=== PATIENT | female | born 1960 | race Caucasian/White ===

== ENCOUNTER 2018-09-27 19:17 | Emergency (ER) | payer SELFPAY ==
[~2018-09-27] VITALS: Ht 165.1 cm; Wt 90.7 kg
[~2018-09-27 19:17] MED LIST: ABILIFY; ADV1DS; ALBU17AE23 IH; AZTH250C; CRS350T PO; ESTR1TAB66; FLT05NA16; FLT05NA16 NSEACH; GFN600TCR; IPRA3AMP19; MNTL10T PO; NAPR-243 PO; OMEP-10; PREMARIN PO; REQUIP; RNT150T; TRM50T PO; VYBRID
--- OUTSIDE RECORDS SUMMARY | 2018-09-27 19:23 | XMS REPORT ---
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 Status Albuterol Sulfate 2.5 mg /3 mL (0.083 %) inhale 3 milliliters by Inhalation route every 4 hours for cough and wheezePRNfor wheezing or cough Sep, Active Ipratropium-Albuterol 0.5-2.5 (3) MG/3ML Inhalation every 6 hrs 3 ml 6h 17 Jan, 2018 10 days Active ZyrTEC 10 MG Orally Once a day 1 tablet as needed 24h Active Prilosec OTC 20 MG Orally Once a day 1 tablet 24h Active Ventolin HFA 108 (90 Base) MCG/ACT Inhalation every 4 hrs 2 puffs as needed 4h Jun, Active Clobetasol Propionate 0.05 % Externally Twice a day 1 application to affected area 12h Jun, Active Ropinirole HCl 1 MG TAKE ONE TABLET BY MOUTH ONE TO THREE HOURS BEFORE BEDTIME. MAY TAKE TAKE ONE-HALF TABLET BY MOUTH DURING THE DAY NEEDED 45 Active Flonase 50 MCG/DOSE Nasally Once a day 1 spray in each nostril 24h Active Zofran 8 MG Orally TID PRN nausea and vomiting 1 tablet Jun, Active Fluconazole 150 MG Orally once 1 tablet Jan, 1 dose Active Diflucan 150 MG Orally now and may repeat in 3 days 1 tablet Jun, 1 dose Active Dicyclomine HCl 20 MG Orally Four times a day as needed for stomach cramps 1 capsules Jun, Active Augmentin 500-125 MG Orally 2 times a day 1 tablet 12h Jun, 10 days Not-Taking Concerta 36 MG Orally Once a day 1 tablet in the morning 24h Jun, 28 days Active RESULTS No Results PROCEDURES No Known procedures INSTRUCTIONS MEDICATIONS ADMINISTERED No Known Medications MEDICAL (GENERAL) HISTORY Type Description Date Medical History back pain Medical History asthma Medical History attention deficit disorder Medical History rosacea Medical History hearing loss Medical History shingles Medical History depression Medical History anxiety Medical History insomnia Medical History restless leg syndrome Medical History hypertension Medical History cervical dysplasia 12/2006 [place] [facility] Medical History MRSA of skin 2008 Surgical History hysterectomy, total with bilateral salpingo-oophorectomy (BSO ) 10/2007 Surgical History Left ankle fracture 04/2014 Hospitalization History bronchitis
--- OUTSIDE RECORDS SUMMARY | 2018-09-27 19:23 | XMS REPORT ---
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 2010 IMMUNIZATIONS No Known Immunizations SOCIAL HISTORY Never Assessed REASON FOR VISIT Controlled Med Vjwtnf31/17/18 PLAN OF CARE VITAL SIGNS MEDICATIONS Medication Instructions Dosage Frequency Start Date End Date Duration Status Concerta 36 MG Orally Once a day 1 tablet in the morning 24h Jul, 28 days Active RESULTS No Results PROCEDURES [...] History hypertension Medical History cervical dysplasia 12/2006 [place] [facility] History MRSA of skin 2008 Surgical History hysterectomy, total with bilateral salpingo-oophorectomy (BSO ) 10/2007 Surgical History Left ankle fracture 04/2014 Hospitalization History bronchitis
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
--- OUTSIDE RECORDS SUMMARY | 2018-09-27 19:24 | XMS REPORT ---
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 Flonase 50 MCG/DOSE Nasally Once a day 1 spray in each nostril 24h Active ZyrTEC 10 MG Orally Once a day 1 tablet as needed 24h Active Augmentin 500-125 MG Orally 2 times a day 1 tablet 12h Jun, 10 days Active Fluconazole 150 MG Orally once 1 tablet Jan, 1 dose Active Albuterol Sulfate 2.5 mg /3 mL (0.083 %) inhale 3 milliliters by Inhalation route every 4 hours for cough and wheezePRNfor wheezing or cough Sep, Active Prilosec OTC 20 MG Orally Once a day 1 tablet 24h Active Ropinirole HCl 1 MG Orally Once a day. May take an additional 0.5 tablet during the day as needed 1 tablet 1 to 3 hours before bedtime Mar, 30 days Active Diflucan 150 MG Orally now and may repeat in 3 days 1 tablet Jun, 1 dose Active Concerta 36 MG Orally Once a day 1 tablet in the morning 24h Jun, 28 days Active Clobetasol Propionate 0.05 % Externally Twice a day 1 application to affected area 12h Jun, Active Ipratropium-Albuterol 0.5-2.5 (3) MG/3ML Inhalation every 6 hrs 3 ml 6h Jan, 10 days Active RESULTS No Results PROCEDURES [...] History hypertension Medical History cervical dysplasia 12/2006 [place] [facility] History MRSA of skin 2008 Surgical History hysterectomy, total with bilateral salpingo-oophorectomy (BSO ) 10/2007 Surgical History Left ankle fracture 04/2014 Hospitalization History bronchitis
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
--- OUTSIDE RECORDS SUMMARY | 2018-09-27 19:25 | XMS REPORT ---
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 Sulfate 2.5 mg /3 mL (0.083 %) inhale 3 milliliters by Inhalation route every 4 hours for cough and wheezePRNfor wheezing or cough Sep, Active Concerta 27 MG Orally Once a day 1 tablet in the morning 24h December, 28 days Active Augmentin 875-125 MG Orally every 12 hrs 1 tablet 12h Jan,Jan 10 day(s) Active RESULTS No Results PROCEDURES No Known [...] History hypertension Medical History cervical dysplasia 12/2006 [place] [facility] Medical History MRSA of skin 2008 Surgical History hysterectomy, total with bilateral salpingo-oophorectomy (BSO ) 10/2007 Surgical History Left ankle fracture 04/2014 Hospitalization History bronchitis
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
--- OUTSIDE RECORDS SUMMARY | 2018-09-27 19:27 | XMS REPORT ---
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 fracture 04/2014 Hospitalization History bronchitis
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
--- OUTSIDE RECORDS SUMMARY | 2018-09-27 19:29 | XMS REPORT ---
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 MG Orally Once a day 1 tablet as needed 24h Not-Taking Symbicort 160-4.5 mcg/actuation inhale 2 puffs by inhalation route 2 times per day in the morning and evening Apr, Not-Taking Prilosec OTC 20 MG Orally Once a day 1 tablet 24h Active Prazosin HCl 2 MG Orally Once at bedtime 2 capsule 16 Feb, 2015 Not-Taking RESULTS No Results PROCEDURES No Known procedures INSTRUCTIONS MEDICATIONS ADMINISTERED No Known Medications MEDICAL (GENERAL) HISTORY Type Description Date Medical History back pain Medical History asthma Medical History attention deficit disorder Medical History rosacea Medical History hearing loss Medical History shingles Medical History depression Medical History anxiety Medical History insomnia Medical History restless leg syndrome Medical History hypertension Medical History cervical dysplasia 12/2006 [facility] [place] [facility] Medical History MRSA of skin 2008 Surgical History hysterectomy, total with bilateral salpingo-oophorectomy (BSO ) 10/2007 Surgical History Left ankle fracture 04/2014 Hospitalization History bronchitis
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
--- OUTSIDE RECORDS SUMMARY | 2018-09-27 19:29 | XMS REPORT ---
Author Author MONICA MOSS eClinical[employer] Address Unknown Phone Unavailable Care Team Providers Care Top Dyeing Machine Tender Name Role Phone MONICA MOSS CP Unavailable Allergies No Known Allergies Problems Problem Type Condition Code Onset Dates Condition Status Problem Asthma, unspecified, unspecified status 493.90 Active Problem Major depressive disorder, recurrent episode, moderate 296.32 Active Problem Unspecified closed fracture of ankle 824.8 Active Problem Pain in joint, ankle and foot 719.47 Active Problem Unspecified disorder of skin and subcutaneous tissue 709.9 Active Problem Dysthymic disorder 300.4 Active Problem Attention deficit disorder of childhood 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 314.00 Active Problem Contact dermatitis and other eczema due to solvents 692.2 Active Problem Acute sinusitis, unspecified 461.9 Active Problem Family history of malignant neoplasm of gastrointestinal tract V16.0 Active Problem Major depressive disorder, recurrent episode, unspecified 296.30 Active Problem Special screening for malignant neoplasms, vagina V76.47 Active Problem Pain in joint, forearm 719.43 Active Problem Postmenopausal bleeding 627.1 Active Problem Rosacea 695.3 Active Problem Dysfunction of Eustachian tube 381.81 Active Problem Posttraumatic stress disorder 309.81 Active Problem Anxiety state 300.00 Active Problem Herpes simplex without mention of complication 054.9 Active Problem Encounter for long-term (current) use of other medications V58.69 Active Problem Manic disorder, recurrent episode, moderate 296.12 Active Problem Hormone replacement therapy (postmenopausal) V07.4 Active Problem Screening for malignant neoplasm of the cervix V76.2 Active Problem Other screening breast examination V76.19 Active Problem Depressive disorder, not elsewhere classified 311 Active Problem Dissociative disorder or reaction, 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 Active Problem Other closed fractures of distal end of radius (alone) 813.42 Active Problem Wheezing 786.07 Active Problem Need for prophylactic vaccination and inoculation, Influenza V04.81 Active Problem Cough 786.2 Active Problem Herpes zoster without mention of complication 053.9 Active Problem Diarrhea 787.91 Active Problem Unspecified hearing loss 389.9 Active Problem Acute upper respiratory infections of unspecified site 465.9 Active Problem Lateral epicondylitis of elbow 726.32 Active Problem Special screening for malignant neoplasms, colon V76.51 Active Problem Acute bronchitis 466.0 Active Problem Acute maxillary sinusitis 461.0 Active Medications No Known Medications Results No Known Results Summary Purpose eClinicalWorks Submission
--- OUTSIDE RECORDS SUMMARY | 2018-09-27 19:30 | XMS REPORT ---
Author Author MONICA MOSS [employer] Address Unknown Phone Unavailable Care Team Providers Care Business Consult Name Role Phone MONICA MOSS CP Unavailable Allergies, Adverse Reactions, Alerts Substance Reaction Event Type Sulfamethoxazole-Trimethoprim rash Drug Allergy Mirapex unknown Drug Allergy Latex rash Non Drug Allergy MSG rash, blisters on feet Non Drug Allergy Problems Problem Type Condition Code Onset Dates [...] respiratory infections of unspecified site 465.9 Active Assessment PTSD (post-traumatic stress disorder) F43.10 Active Problem Lateral epicondylitis of elbow 726.32 Active Assessment Moderate mixed bipolar I disorder F31.62 Active Problem Special screening for malignant neoplasms, colon V76.51 Active Problem Acute bronchitis 466.0 Active Problem Acute maxillary sinusitis 461.0 Active Medications Medication Code System Code Instructions Start Date End Date Status Dosage Albuterol Sulfate [facility] [address]-51 2.5 mg /3 mL (0.083 %) Oct 04, 2011 inhale 3 milliliters by Inhalation route every 4 hours for cough and wheeze PRNfor wheezing or cough Prilosec OTC [facility] [address] 20 MG Orally Once a day 1 tablet Prazosin HCl [facility] [address]-06 2 MG Orally Once at bedtime March 09, 2015 2 capsule Sertraline HCl [facility] [address]-55 50 MG Orally Once a day Apr 24, 2015 1 tablet ZyrTEC [facility] [address]-08 10 MG Orally Once a day 1 tablet as needed Symbicort [facility] [address]-21 160-4.5 mcg/actuation May 16, 2014 inhale 2 puffs by inhalation route 2 times per day in the morning and evening Singulair [facility] 61036915571 10 MG TAKE ONE TABLET BY MOUTH ONCE DAILY Loxapine [facility] [address]-11 10 MG 1 tab in the AM & 2 tabs at HS May 11, 2015 1 tablets Alprazolam [facility] [address]-87 0.5 MG Orally Twice a day as needed for anxiety 1 tablet Flonase [facility] [address]-34 50 MCG/DOSE Nasally Once a day 1 spray in each nostril Procedures Procedure Coding System Code Date Office Visit, Est Pt., Level 4 CPT-4 00966 Jun 15, 2015 Vital Signs Date/Time: Jun 15, 2015 Cardiac Monitoring Heart Rate 92 bpm Weight 223.2 lbs Height 65 in BMI 37.14 Index Blood Pressure Diastolic 94 mmHg Blood Pressure Systolic 150 mmHg Results No Known Results Summary Purpose eClinicalWorks Submission
--- OUTSIDE RECORDS SUMMARY | 2018-09-27 19:30 | XMS REPORT ---
Author Author ALLEN MERAZ [facility] eClinicalWorks Address Unknown Phone Unavailable Care Team Providers Care Brick Loader Name Role Phone ALLEN MERAZ CP Unavailable Allergies No Known Allergies Problems [...] Instructions Start Date End Date Status Dosage Diflucan [facility] [address]-31 150 MG Orally Once a day then repeat in 3-4 days 1 tablet Results No Known Results Summary Purpose eClinicalWorks Submission
--- OUTSIDE RECORDS SUMMARY | 2018-09-27 19:30 | XMS REPORT ---
Author Author ALLEN MERAZ [facility] Address [address] [place] [address] Care Team Providers Care Tire Buffer Name Role Phone ALLEN MERAZ Unavailable PROBLEMS Type Condition ICD9-CM Code [id number] Code Onset Dates Condition Status SNOMED Code Problem Unspecified closed fracture of ankle 824.8 Active 80882959 Problem Need for prophylactic vaccination and inoculation, Influenza V04.81 Active 949711083 Problem Diarrhea 787.91 Active 38642133 Problem Other closed fractures of distal end of radius (alone) 813.42 Active 33236251 Problem Cough 786.2 Active 25139295 Problem Wheezing 786.07 Active 59642098 Problem Pain in joint, ankle and foot 719.47 Active 082099598 Problem Pain in joint, forearm 719.43 Active 591835861 Problem Unspecified disorder of skin and subcutaneous tissue 709.9 Active 69490878 Problem Herpes zoster without mention of complication 053.9 Active 785997263 Problem Rosacea 695.3 Active 107366638 Problem Major depressive disorder, recurrent episode, moderate 296.32 Active 23844215 Problem Contact dermatitis and other eczema due to solvents 692.2 Active Problem Major depressive disorder, recurrent episode, unspecified 296.30 Active 39443784 Problem Anxiety state 300.00 Active 035819182 Problem Dysthymic disorder 300.4 Active 17876037 Problem Restless legs G25.81 Active 23344674 Problem 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 Active 649208562 Problem Asthma, unspecified, unspecified status 493.90 Active 13028060 Problem Postmenopausal bleeding 627.1 Active 26221745 Problem Special screening for malignant neoplasms, colon V76.51 Active 907495409 Problem Lateral epicondylitis of elbow 726.32 Active 687923544 Problem Depressive disorder, not elsewhere classified 311 Active 73156856 Problem Dissociative disorder or reaction, 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 Active 28727957 Problem Manic disorder, recurrent episode, moderate 296.12 Active 515746189 Problem Posttraumatic stress disorder 309.81 Active 52256603 Problem Family history of malignant neoplasm of gastrointestinal tract V16.0 Active 135791466 Problem Acute sinusitis, unspecified 461.9 Active 83660603 Problem Hormone replacement therapy (postmenopausal) V07.4 Active 252937296 Problem Acute maxillary sinusitis 461.0 Active 51073266 Problem Other screening breast examination V76.19 Active 13528921 Problem Acute bronchitis 466.0 Active 30239621 Problem Encounter for long-term (current) use of other medications V58.69 Active 434586998 Problem Acute upper respiratory infections of unspecified site 465.9 Active 36628726 Problem Special screening for malignant neoplasms, vagina V76.47 Active 077874684 Problem Attention deficit disorder of childhood 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 314.00 Active 27981178 Problem Screening for malignant neoplasm of the cervix V76.2 Active 077929156 Problem Herpes simplex without mention of complication 054.9 Active 315499728 Problem Unspecified hearing loss 389.9 Active 23167118 Problem Dysfunction of Eustachian tube 381.81 Active 08740184 ALLERGIES Substance Reaction Event Type Date Status Sulfamethoxazole-Trimethoprim rash Drug Allergy December, Active Mirapex unknown Drug Allergy December, Active Latex rash Non Drug Allergy December, Active MSG rash, blisters on feet Non Drug Allergy December, Active SOCIAL HISTORY Never Assessed PLAN OF CARE Activity Details Follow Up 3 Months Reason:restless legs VITAL SIGNS Height 65 in 2016-12-30 Weight 212.2 lbs 2016-12-30 Temperature 98.2 degrees Fahrenheit 2016-12-30 Heart Rate 88 bpm 2016-12-30 Respiratory Rate 22 2016-12-30 BMI 35.31 kg/m2 2016-12-30 Blood pressure systolic 138 mmHg 2016-12-30 Blood pressure diastolic 74 mmHg 2016-12-30 MEDICATIONS Medication Instructions Dosage Frequency Start Date End Date Duration Status Prilosec OTC 20 MG Orally Once a day 1 tablet 24h Active ZyrTEC 10 MG Orally Once a day 1 tablet as needed 24h Active Ventolin HFA 108 (90 Base) MCG/ACT Inhalation every 4 hrs 2 puffs as needed 4h 18 Jun, 2015 Active Sertraline HCl 50 mg Orally Once a day 1.5 tablet 24h Active Albuterol Sulfate 2.5 mg /3 mL (0.083 %) inhale 3 milliliters by Inhalation route every 4 hours for cough and wheezePRNfor wheezing or cough Sep, Active Flonase 50 MCG/DOSE Nasally Once a day 1 spray in each nostril 24h Active Ipratropium Broadalbin 0.02 % Inhalation Three times a day 1 ampule 8h DecemberJan, 30 days Active Mucinex Allergy 180 MG Orally Once a day 1 tablet as needed 24h Active Symbicort 160-4.5 mcg/actuation inhale 2 puffs by inhalation route 2 times per day in the morning and evening Apr, Active Requip 0.5 MG Orally Once a day 1 tablet 1 to 3 hours before bedtime 24h December, 30 day(s) Active Azithromycin 250 MG Orally Once a day 2 tablets on the first day, then 1 tablet daily for 4 days 24h December, December, 5 day(s) Active RESULTS No Results PROCEDURES No Known procedures IMMUNIZATIONS No Known Immunizations MEDICAL (GENERAL) HISTORY Type Description Date Medical History back pain Medical History asthma Medical History attention deficit disorder Medical History rosacea Medical History hearing loss Medical History shingles Medical History depression Medical History anxiety Medical History insomnia Medical History restless leg syndrome Medical History hypertension Medical History cervical dysplasia 12/2006 [place] [facility] Medical History MRSA of skin 2008 Surgical History hysterectomy, total with bilateral salpingo-oophorectomy (BSO ) 10/2007 Surgical History Left ankle fracture 04/2014 Hospitalization History bronchitis
--- OUTSIDE RECORDS SUMMARY | 2018-09-27 19:31 | XMS REPORT ---
Author Author SHANIA VERDIN [facility] Address [address] [place] [address] Care Team Providers Care Grain Farmer Name Role Phone SHANIA VERDIN Unavailable PROBLEMS Type Condition ICD9-CM Code GVC42-TN Code Onset Dates Condition Status SNOMED Code Problem Pain in joint, ankle and foot 719.47 Active 425868850 Problem Asthma, unspecified, unspecified status 493.90 Active 83658358 Problem Unspecified disorder of skin and subcutaneous tissue 709.9 Active 67184554 Problem Unspecified closed fracture of ankle 824.8 Active 10044477 Problem Dysthymic disorder 300.4 Active 86662677 Problem Attention deficit disorder of childhood 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 314.00 Active 65338617 Problem Contact dermatitis and other eczema due to solvents 692.2 Active Problem Acute sinusitis, unspecified 461.9 Active 06333944 Problem Major depressive disorder, recurrent episode, unspecified 296.30 Active 295654626 Problem Special screening for malignant neoplasms, vagina V76.47 Active 173652286 Problem Pain in joint, forearm 719.43 Active 719946889 Problem Postmenopausal bleeding 627.1 Active 13828052 Problem Hormone replacement therapy (postmenopausal) V07.4 Active 175050121 Problem Dysfunction of Eustachian tube 381.81 Active 54990739 Problem Other screening breast examination V76.19 Active 71106453 Problem Rosacea 695.3 Active 347795767 Problem Manic disorder, recurrent episode, moderate 296.12 Active 183723950 Problem Posttraumatic stress disorder 309.81 Active 92261701 Problem Diarrhea 787.91 Active 89141215 Problem Herpes simplex without mention of complication 054.9 Active 848607168 Problem Encounter for long-term (current) use of other medications V58.69 Active 104297863 Problem Dissociative disorder or reaction, 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 Active 61164569 Problem Screening for malignant neoplasm of the cervix V76.2 Active 152338408 Problem Anxiety state 300.00 Active 747122110 Problem Depressive disorder, not elsewhere classified 311 Active 10422697 Problem Need for prophylactic vaccination and inoculation, Influenza V04.81 Active 533752790 Problem Cough 786.2 Active 04699757 Problem Major depressive disorder, recurrent episode, moderate 296.32 Active 32332667 Problem Acute bronchitis 466.0 Active 38959066 Problem Unspecified hearing loss 389.9 Active 76605636 Problem Acute upper respiratory infections of unspecified site 465.9 Active 65311914 Problem Other closed fractures of distal end of radius (alone) 813.42 Active 02987901 Problem Wheezing 786.07 Active 96182849 Assessment Acute bronchitis, unspecified organism J20.9 Jul, Active 45670867 Problem Special screening for malignant neoplasms, colon V76.51 Active 359761631 Problem Herpes zoster without mention of complication 053.9 Active 022514223 Problem Family history of malignant neoplasm of gastrointestinal tract V16.0 Active 070536034 Problem Acute maxillary sinusitis 461.0 Active 45847107 Problem Lateral epicondylitis of elbow 726.32 Active 361721659 ALLERGIES Substance Reaction Event Type Date Status Sulfamethoxazole-Trimethoprim rash Drug Allergy Jul, Active Mirapex unknown Drug Allergy Jul, Active Latex rash Non Drug Allergy Jul, Active MSG rash, blisters on feet Non Drug Allergy Jul, Active SOCIAL HISTORY No smoking Hx information available PLAN OF CARE VITAL SIGNS Height 65 in 2016-08-02 Weight 218.6 lbs 2016-08-02 Heart Rate 80 bpm 2016-08-02 Respiratory Rate 22 2016-08-02 BMI 36.37 kg/m2 2016-08-02 Blood pressure systolic 160 mmHg 2016-08-02 Blood pressure diastolic 94 mmHg 2016-08-02 MEDICATIONS Medication Instructions Dosage Frequency Start Date End Date Duration Status Albuterol Sulfate 2.5 mg /3 mL (0.083 %) inhale 3 milliliters by Inhalation route every 4 hours for cough and wheezePRNfor wheezing or cough Sep, Active Mucinex Allergy 180 MG Orally Once a day 1 tablet as needed 24h Active Prazosin HCl 2 MG Orally Once at bedtime 2 capsule Feb, Active Singulair 10 MG TAKE ONE TABLET BY MOUTH ONCE DAILY 30 Active Flonase 50 MCG/DOSE Nasally Once a day 1 spray in each nostril 24h Active Clobetasol Propionate 0.05 % Externally Twice a day 1 application to affected area as needed for eczema 12h Active Augmentin 875-125 MG Orally every 12 hrs 1 tablet 12h Jul,Jul 10 day(s) Active Ventolin HFA 108 (90 Base) MCG/ACT Inhalation every 4 hrs 2 puffs as needed 4h 18 Jun, 2015 Active BusPIRone HCl 10 MG Orally Twice a day 2 tablets 12h Active ZyrTEC 10 MG Orally Once a day 1 tablet as needed 24h Active Diflucan 150 MG Orally Take one when symptoms start, may repeat in 72 hours if symptoms continue x 2 1 tablet Jul, Jul, 7 days Active Symbicort 160-4.5 mcg/actuation inhale 2 puffs by inhalation route 2 times per day in the morning and evening Apr, Active Sertraline HCl 50 mg Orally Once a day 1.5 tablet 24h Active Prilosec OTC 20 MG Orally Once a day 1 tablet 24h Active PredniSONE 20 MG Orally Once a day 2 tablet 24h Jul, Jul, 5 days Active RESULTS No Results PROCEDURES Procedure Date Ordered Related Diagnosis Body Site Office Visit, Est Pt., Level 3 Aug 02, 2016 IMMUNIZATIONS No Known Immunizations
--- OUTSIDE RECORDS SUMMARY | 2018-09-27 19:31 | XMS REPORT ---
Author Author MARIEL WEST [facility] Address [address] [place] [address] Care Team Providers Care Silk Conditioner Name Role Phone MARIEL WEST Unavailable PROBLEMS Type Condition ICD9-CM Code XSY98-OA Code Onset Dates Condition Status SNOMED Code Problem Unspecified closed fracture of ankle 824.8 Active 82028558 Problem Need for prophylactic vaccination and inoculation, Influenza V04.81 Active 707249027 Problem Diarrhea 787.91 Active 13316857 Problem Other closed fractures of distal end of radius (alone) 813.42 Active 72472461 Problem Cough 786.2 Active 72179690 Problem Wheezing 786.07 Active 57473222 Problem Pain in joint, ankle and foot 719.47 Active 631996919 Problem Pain in joint, forearm 719.43 Active 054905478 Problem Unspecified disorder of skin and subcutaneous tissue 709.9 Active 96073162 Problem Herpes zoster without mention of complication 053.9 Active 248440504 Problem Rosacea 695.3 Active 914525097 Problem Major depressive disorder, recurrent episode, moderate 296.32 Active 14675885 Problem Contact dermatitis and other eczema due to solvents 692.2 Active Problem Major depressive disorder, recurrent episode, unspecified 296.30 Active 79859692 Problem Anxiety state 300.00 Active 954086325 Problem Dysthymic disorder 300.4 Active 09471953 Problem Restless legs G25.81 Active 44850074 Problem 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 Active 867901995 Problem Asthma, unspecified, unspecified status 493.90 Active 92529204 Problem Postmenopausal bleeding 627.1 Active 46723038 Problem Special screening for malignant neoplasms, colon V76.51 Active 354520773 Problem Lateral epicondylitis of elbow 726.32 Active 424816720 Problem Depressive disorder, not elsewhere classified 311 Active 36518240 Problem Dissociative disorder or reaction, 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 Active 51280088 Problem Manic disorder, recurrent episode, moderate 296.12 Active 623046490 Problem Posttraumatic stress disorder 309.81 Active 14156106 Problem Family history of malignant neoplasm of gastrointestinal tract V16.0 Active 595584871 Problem Acute sinusitis, unspecified 461.9 Active 78118923 Problem Hormone replacement therapy (postmenopausal) V07.4 Active 703991895 Problem Acute maxillary sinusitis 461.0 Active 44109660 Problem Other screening breast examination V76.19 Active 99471111 Problem Acute bronchitis 466.0 Active 85682478 Problem Encounter for long-term (current) use of other medications V58.69 Active 083613540 Problem Acute upper respiratory infections of unspecified site 465.9 Active 55594686 Problem Special screening for malignant neoplasms, vagina V76.47 Active 011874573 Problem Attention deficit disorder of childhood 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 314.00 Active 76471394 Problem Screening for malignant neoplasm of the cervix V76.2 Active 334858848 Problem Herpes simplex without mention of complication 054.9 Active 690383733 Problem Unspecified hearing loss 389.9 Active 57300200 Problem Dysfunction of Eustachian tube 381.81 Active 82531261 ALLERGIES Substance Reaction Event Type Date Status Sulfamethoxazole-Trimethoprim rash Drug Allergy Oct, Active Mirapex unknown Drug Allergy Oct, Active Latex rash Non Drug Allergy Oct, Active MSG rash, blisters on feet Non Drug Allergy Oct, Active SOCIAL HISTORY Never Assessed PLAN OF CARE VITAL SIGNS Height 65 in 2016-11-01 Weight 216.9 lbs 2016-11-01 Temperature 98.0 degrees Fahrenheit 2016-11-01 Heart Rate 80 bpm 2016-11-01 Respiratory Rate 20 2016-11-01 BMI 36.09 kg/m2 2016-11-01 Blood pressure systolic 148 mmHg 2016-11-01 Blood pressure diastolic 82 mmHg 2016-11-01 MEDICATIONS Medication Instructions Dosage Frequency Start Date End Date Duration Status Prilosec OTC 20 MG Orally Once a day 1 tablet 24h Active Ventolin HFA 108 (90 Base) MCG/ACT Inhalation every 4 hrs 2 puffs as needed 4h 18 Jun, 2015 Active Albuterol Sulfate 2.5 mg /3 mL (0.083 %) inhale 3 milliliters by Inhalation route every 4 hours for cough and wheezePRNfor wheezing or cough Sep, Active Symbicort 160-4.5 mcg/actuation inhale 2 puffs by inhalation route 2 times per day in the morning and evening Apr, Active Doxycycline Hyclate 100 mg Orally every 12 hrs 1 capsule 12h Oct, Oct, 10 days Active Sertraline HCl 50 mg Orally Once a day 1.5 tablet 24h Active Cromolyn Sodium 4 % Ophthalmic Four times a day 1 drop into affected eye 6h Oct, Active Flonase 50 MCG/DOSE Nasally Once a day 1 spray in each nostril 24h Active Clobetasol Propionate 0.05 % Externally Twice a day 1 application to affected area as needed for eczema 12h Active Mucinex Allergy 180 MG Orally Once a day 1 tablet as needed 24h Active PredniSONE 20 mg Orally Once a day 2 tablets 24h Oct, Oct, 05 days Active ZyrTEC 10 MG Orally Once a day 1 tablet as needed 24h Active Ibuprofen 200 MG Orally every 6 hrs 1 tablet as needed 6h Active RESULTS No Results PROCEDURES No Known procedures IMMUNIZATIONS No Known Immunizations MEDICAL (GENERAL) HISTORY Type Description Date Medical History back pain Medical History asthma Medical History attention deficit disorder Medical History rosacea Medical History hearing loss Medical History shingles Medical History depression Medical History anxiety Medical History insomnia Medical History restless leg syndrome Medical History hypertension Medical History cervical dysplasia 12/2006 [place] [facility] Medical History MRSA of skin 2008 Surgical History hysterectomy, total with bilateral salpingo-oophorectomy (BSO ) 10/2007 Surgical History Left ankle fracture 04/2014 Hospitalization History bronchitis
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
--- OUTSIDE RECORDS SUMMARY | 2018-09-27 19:32 | XMS REPORT ---
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
--- OUTSIDE RECORDS SUMMARY | 2018-09-27 19:32 | XMS REPORT ---
Author Author ALLEN MERAZ [facility] Address [address] [place] [address] Care Team Providers Care Flight Test Mechanic Name Role Phone ALLEN MERAZ Unavailable PROBLEMS Type Condition ICD9-CM Code SHE34-ZY Code Onset Dates Condition Status SNOMED Code Problem Unspecified closed fracture of ankle 824.8 Active 53702465 Problem Need for prophylactic vaccination and inoculation, Influenza V04.81 Active 545811618 Problem Diarrhea 787.91 Active 10706833 Problem Other closed fractures of distal end of radius (alone) 813.42 Active 92902234 Problem Cough 786.2 Active 09748430 Problem Wheezing 786.07 Active 47895074 Problem Pain in joint, ankle and foot 719.47 Active 827910601 Problem Pain in joint, forearm 719.43 Active 389112521 Problem Unspecified disorder of skin and subcutaneous tissue 709.9 Active 41012588 Problem Herpes zoster without mention of complication 053.9 Active 430415456 Problem Rosacea 695.3 Active 966153568 Problem Major depressive disorder, recurrent episode, moderate 296.32 Active 17120118 Problem Contact dermatitis and other eczema due to solvents 692.2 Active Problem Major depressive disorder, recurrent episode, unspecified 296.30 Active 33226236 Problem Anxiety state 300.00 Active 176669841 Problem Dysthymic disorder 300.4 Active 75577342 Problem Restless legs G25.81 Active 95669775 Problem 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 Active 357522522 Problem Asthma, unspecified, unspecified status 493.90 Active 18450128 Problem Postmenopausal bleeding 627.1 Active 44013296 Problem Special screening for malignant neoplasms, colon V76.51 Active 467044780 Problem Lateral epicondylitis of elbow 726.32 Active 798664049 Problem Depressive disorder, not elsewhere classified 311 Active 47209170 Problem Dissociative disorder or reaction, 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 Active 04402052 Problem Manic disorder, recurrent episode, moderate 296.12 Active 230274149 Problem Posttraumatic stress disorder 309.81 Active 20709554 Problem Family history of malignant neoplasm of gastrointestinal tract V16.0 Active 153846657 Problem Acute sinusitis, unspecified 461.9 Active 78344204 Problem Hormone replacement therapy (postmenopausal) V07.4 Active 831691009 Problem Acute maxillary sinusitis 461.0 Active 87459195 Problem Other screening breast examination V76.19 Active 25504711 Problem Acute bronchitis 466.0 Active 46803617 Problem Encounter for long-term (current) use of other medications V58.69 Active 474128695 Problem Acute upper respiratory infections of unspecified site 465.9 Active 71549784 Problem Special screening for malignant neoplasms, vagina V76.47 Active 635736528 Problem Attention deficit disorder of childhood 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 314.00 Active 85429603 Problem Screening for malignant neoplasm of the cervix V76.2 Active 831552309 Problem Herpes simplex without mention of complication 054.9 Active 894888286 Problem Unspecified hearing loss 389.9 Active 47381848 Problem Dysfunction of Eustachian tube 381.81 Active 81451337 ALLERGIES No Information SOCIAL HISTORY Never Assessed PLAN OF CARE VITAL SIGNS MEDICATIONS Medication Instructions Dosage Frequency Start Date End Date Duration Status Diflucan 150 MG Orally one time. May repeat in 3 days if symptoms persist. 1 tablet Oct, 4 days Active RESULTS No Results PROCEDURES No Known procedures IMMUNIZATIONS No Known Immunizations MEDICAL (GENERAL) HISTORY Type Description Date Medical History back pain Medical History asthma Medical History attention deficit disorder Medical History rosacea Medical History hearing loss Medical History shingles Medical History depression Medical History anxiety Medical History insomnia Medical History restless leg syndrome Medical History hypertension Medical History cervical dysplasia 12/2006 [place] [facility] Medical History MRSA of skin 2008 Surgical History hysterectomy, total with bilateral salpingo-oophorectomy (BSO ) 10/2007 Surgical History Left ankle fracture 04/2014 Hospitalization History bronchitis
--- OUTSIDE RECORDS SUMMARY | 2018-09-27 19:32 | XMS REPORT ---
Author Author ROSEANN BEAN Organization [facility] Address [address] [place] [address] Care Team Providers Care Stock Receiver Name Role Phone ROSEANN BEAN Unavailable PROBLEMS Type Condition ICD9-CM Code LBY67-HR Code Onset Dates Condition Status SNOMED Code Problem Unspecified closed fracture of ankle 824.8 Active 35582971 Problem Need for prophylactic vaccination and inoculation, Influenza V04.81 Active 657203386 Problem Diarrhea 787.91 Active 97028164 Problem Other closed fractures of distal end of radius (alone) 813.42 Active 57027236 Problem Cough 786.2 Active 85715624 Problem Wheezing 786.07 Active 53076381 Problem Pain in joint, ankle and foot 719.47 Active 804003527 Problem Pain in joint, forearm 719.43 Active 867993158 Problem Unspecified disorder of skin and subcutaneous tissue 709.9 Active 31062477 Problem Herpes zoster without mention of complication 053.9 Active 206160931 Problem Rosacea 695.3 Active 823150454 Problem Major depressive disorder, recurrent episode, moderate 296.32 Active 11025118 Problem Contact dermatitis and other eczema due to solvents 692.2 Active Problem Major depressive disorder, recurrent episode, unspecified 296.30 Active 62189431 Problem Anxiety state 300.00 Active 781785175 Problem Dysthymic disorder 300.4 Active 54314827 Problem Restless legs G25.81 Active 93562862 Problem 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 Active 373785206 Problem Asthma, unspecified, unspecified status 493.90 Active 01229222 Problem Postmenopausal bleeding 627.1 Active 94799938 Problem Special screening for malignant neoplasms, colon V76.51 Active 573741656 Problem Lateral epicondylitis of elbow 726.32 Active 287150658 Problem Depressive disorder, not elsewhere classified 311 Active 41717234 Problem Dissociative disorder or reaction, 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 Active 50764415 Problem Manic disorder, recurrent episode, moderate 296.12 Active 972935780 Problem Posttraumatic stress disorder 309.81 Active 66748064 Problem Family history of malignant neoplasm of gastrointestinal tract V16.0 Active 721127904 Problem Acute sinusitis, unspecified 461.9 Active 37519690 Problem Hormone replacement therapy (postmenopausal) V07.4 Active 888847189 Problem Acute maxillary sinusitis 461.0 Active 18217674 Problem Other screening breast examination V76.19 Active 94220943 Problem Acute bronchitis 466.0 Active 42988593 Problem Encounter for long-term (current) use of other medications V58.69 Active 160610141 Problem Acute upper respiratory infections of unspecified site 465.9 Active 73728995 Problem Special screening for malignant neoplasms, vagina V76.47 Active 451610120 Problem Attention deficit disorder of childhood 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 314.00 Active 27759713 Problem Screening for malignant neoplasm of the cervix V76.2 Active 208026001 Problem Herpes simplex without mention of complication 054.9 Active 742900552 Problem Unspecified hearing loss 389.9 Active 72444581 Problem Dysfunction of Eustachian tube 381.81 Active 39377141 ALLERGIES Substance Reaction Event Type Date Status Sulfamethoxazole-Trimethoprim rash Drug Allergy December, Active Mirapex unknown Drug Allergy December, Active Latex rash Non Drug Allergy December, Active MSG rash, blisters on feet Non Drug Allergy December, Active SOCIAL HISTORY Never Assessed PLAN OF CARE Activity Details Follow Up prn Reason: VITAL SIGNS Height 65 in 2016-12-28 Weight 212.0 lbs 2016-12-28 Temperature 97.8 degrees Fahrenheit 2016-12-28 Heart Rate 118 bpm 2016-12-28 Respiratory Rate 24 2016-12-28 Oximetry 95 % 2016-12-28 BMI 35.27 kg/m2 2016-12-28 Blood pressure systolic 134 mmHg 2016-12-28 Blood pressure diastolic 92 mmHg 2016-12-28 MEDICATIONS Medication Instructions Dosage Frequency Start Date End Date Duration Status Clobetasol Propionate 0.05 % Externally Twice a day 1 application to affected area as needed for eczema 12h Active Ipratropium [place] 0.02 % Inhalation Three times a day 1 ampule 8h DecemberJan, 30 days Active Flonase 50 MCG/DOSE Nasally Once a day 1 spray in each nostril 24h Active Mucinex Allergy 180 MG Orally Once a day 1 tablet as needed 24h Active Prilosec OTC 20 MG Orally Once a day 1 tablet 24h Active ZyrTEC 10 MG Orally Once a day 1 tablet as needed 24h Active Ibuprofen 200 MG Orally every 6 hrs 1 tablet as needed 6h Active Sertraline HCl 50 mg Orally Once a day 1.5 tablet 24h Active Azithromycin 250 MG Orally Once a day 2 tablets on the first day, then 1 tablet daily for 4 days 24h December, December, 5 day(s) Active Symbicort 160-4.5 mcg/actuation inhale 2 puffs by inhalation route 2 times per day in the morning and evening Apr, Active Cromolyn Sodium 4 % Ophthalmic Four times a day 1 drop into affected eye 6h Oct, Active Ventolin HFA 108 (90 Base) MCG/ACT Inhalation every 4 hrs 2 puffs as needed 4h Jun, Active Albuterol Sulfate 2.5 mg /3 mL (0.083 %) inhale 3 milliliters by Inhalation route every 4 hours for cough and wheezePRNfor wheezing or cough Sep, Active RESULTS Name Result Date Reference Range Xray : Chest (IN HOUSE) 2016-12-28 PROCEDURES Procedure Date Ordered Result Body Site MEASURE BLOOD OXYGEN LEVEL December 28, 2016 CHEST X-RAY December 28, 2016 IMMUNIZATIONS No Known Immunizations MEDICAL (GENERAL) HISTORY Type Description Date Medical History back pain Medical History asthma Medical History attention deficit disorder Medical History rosacea Medical History hearing loss Medical History shingles Medical History depression Medical History anxiety Medical History insomnia Medical History restless leg syndrome Medical History hypertension Medical History cervical dysplasia 12/2006 [place] [facility] Medical History MRSA of skin 2008 Surgical History hysterectomy, total with bilateral salpingo-oophorectomy (BSO ) 10/2007 Surgical History Left ankle fracture 04/2014 Hospitalization History bronchitis
--- OUTSIDE RECORDS SUMMARY | 2018-09-27 19:32 | XMS REPORT ---
Author Author ALLEN MERAZ [facility] eClinicalWorks Address Unknown Phone Unavailable Care Team Providers Care Cloth Shrinking Tester Name Role Phone ALLEN MERAZ CP Unavailable [...] infections of unspecified site 465.9 Active Assessment Screening, lipid Z13.220 Active Problem Lateral epicondylitis of elbow 726.32 Active Assessment High risk medication use Z79.899 Active Problem Special screening for malignant neoplasms, colon V76.51 Active Problem Acute bronchitis 466.0 Active Problem Acute maxillary sinusitis 461.0 Active Medications No Known Medications Results No Known Results Summary Purpose eClinicalWorks Submission
--- OUTSIDE RECORDS SUMMARY | 2018-09-27 19:32 | XMS REPORT ---
Author Author DIGNA MARIE Organization eClinicalWorks Address Unknown Phone Unavailable Care Team Providers Care Casualty Insurance Claim Adjuster Name Role Phone DIGNA MARIE CP Unavailable Allergies, Adverse Reactions, Alerts Substance [...] infections of unspecified site 465.9 Active Assessment Sinusitis J32.9 Active Problem Lateral epicondylitis of elbow 726.32 Active Assessment Bronchitis J40 Active Problem Special screening for malignant neoplasms, colon V76.51 Active Problem Acute bronchitis 466.0 Active Problem Acute maxillary sinusitis 461.0 Active Medications Medication Code System Code Instructions Start Date End Date Status Dosage Albuterol Sulfate [facility] [address]-83 2.5 mg /3 mL (0.083 %) Oct 04, 2011 inhale 3 milliliters by Inhalation route every 4 hours for cough and wheeze PRNfor wheezing or cough Augmentin [facility] [address]-17 875-125 MG Orally every 12 hrs Jul 11, 2015 Jul 21, 2015 1 tablet Procedures Procedure Coding System Code Date Office Visit, Est Pt., Level 3 CPT-4 76983 Jul 11, 2015 MEASURE BLOOD OXYGEN LEVEL CPT-4 35601 Jul 11, 2015 Vital Signs Date/Time: Jul 11, 2015 Temperature 98.5 F Weight 225 lbs Height 65 in Oximetry 94 % Blood Pressure Diastolic 90 mmHg Blood Pressure Systolic 130 mmHg Cardiac Monitoring Heart Rate 100 bpm BMI 37.44 Index Results No Known Results Summary Purpose eClinicalWorks Submission
--- OUTSIDE RECORDS SUMMARY | 2018-09-27 19:32 | XMS REPORT ---
Author Author ALLEN MERAZ [facility] Address [address] [place] [address] Care Team Providers Care Manager Athletics Name Role Phone ALLEN MERAZ Unavailable PROBLEMS Type Condition ICD9-CM Code FWH98-RF Code Onset Dates Condition Status SNOMED Code Problem Pain in joint, ankle and foot 719.47 Active 946161426 Problem Asthma, unspecified, unspecified status 493.90 Active 49046926 Problem Unspecified disorder of skin and subcutaneous tissue 709.9 Active 86190550 Problem Unspecified closed fracture of ankle 824.8 Active 77920175 Problem Dysthymic disorder 300.4 Active 43722750 Problem Attention deficit disorder of childhood 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 314.00 Active 75856517 Problem Contact dermatitis and other eczema due to solvents 692.2 Active Problem Acute sinusitis, unspecified 461.9 Active 04394221 Problem Major depressive disorder, recurrent episode, unspecified 296.30 Active 321563684 Problem Special screening for malignant neoplasms, vagina V76.47 Active 879505583 Problem Pain in joint, forearm 719.43 Active 507027490 Problem Postmenopausal bleeding 627.1 Active 37587496 Problem Hormone replacement therapy (postmenopausal) V07.4 Active 491418535 Problem Dysfunction of Eustachian tube 381.81 Active 41728251 Problem Other screening breast examination V76.19 Active 98230091 Problem Rosacea 695.3 Active 209055626 Problem Manic disorder, recurrent episode, moderate 296.12 Active 322718229 Problem Posttraumatic stress disorder 309.81 Active 58190448 Problem Diarrhea 787.91 Active 63732185 Problem Herpes simplex without mention of complication 054.9 Active 773463053 Problem Encounter for long-term (current) use of other medications V58.69 Active 728162384 Problem Dissociative disorder or reaction, 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 Active 83897115 Problem Screening for malignant neoplasm of the cervix V76.2 Active 220415929 Problem Anxiety state 300.00 Active 801580847 Problem Depressive disorder, not elsewhere classified 311 Active 04682422 Problem Need for prophylactic vaccination and inoculation, Influenza V04.81 Active 437803252 Problem Cough 786.2 Active 25579340 Problem Major depressive disorder, recurrent episode, moderate 296.32 Active 00454928 Problem Acute bronchitis 466.0 Active 68007873 Problem Unspecified hearing loss 389.9 Active 95818368 Problem Acute upper respiratory infections of unspecified site 465.9 Active 77785814 Problem Other closed fractures of distal end of radius (alone) 813.42 Active 98339373 Problem Wheezing 786.07 Active 35146679 Problem Special screening for malignant neoplasms, colon V76.51 Active 442280511 Problem Herpes zoster without mention of complication 053.9 Active 196056086 Problem Family history of malignant neoplasm of gastrointestinal tract V16.0 Active 860466145 Problem Acute maxillary sinusitis 461.0 Active 34837604 Problem Lateral epicondylitis of elbow 726.32 Active 821630264 ALLERGIES No Known Allergies SOCIAL HISTORY No smoking Hx information available PLAN OF CARE VITAL SIGNS MEDICATIONS No Known Medications RESULTS No Results PROCEDURES No Known procedures IMMUNIZATIONS No Known Immunizations
--- OUTSIDE RECORDS SUMMARY | 2018-09-27 19:33 | XMS REPORT ---
Author Author ALLEN MERAZ [facility] eClinicalWorks Address Unknown Phone Unavailable Care Team Providers Care Laborer Filter Plant Name Role Phone ALLEN MERAZ CP Unavailable [...]
--- OUTSIDE RECORDS SUMMARY | 2018-09-27 19:33 | XMS REPORT ---
Author Author ALLEN MERAZ [facility] eClinicalWorks Address Unknown Phone Unavailable Care Team Providers Care Airplane Charter Clerk Name Role Phone ALLEN MERAZ CP Unavailable [...] Instructions Start Date End Date Status Dosage Azithromycin [facility] [address]-00 500 MG Orally May 24, 2015 2 tablets on the first day, then 1 tablet daily for 4 days Results No Known Results Summary Purpose eClinicalWorks Submission
--- OUTSIDE RECORDS SUMMARY | 2018-09-27 19:33 | XMS REPORT ---
Author Author JARAD LUCERO [facility] eClinicalWorks Address Unknown Phone Unavailable Care Team Providers Care Speech Assistant Name Role Phone JARAD LUCERO CP Unavailable Allergies, Adverse Reactions, Alerts Substance Reaction Event Type Sulfamethoxazole-Trimethoprim rash Drug Allergy Mirapex unknown Drug Allergy Latex rash Non Drug Allergy MSG rash, blisters on feet Non Drug Allergy Problems Problem Type Condition ICD-9 Code Onset Dates Condition Status Problem Asthma, [...] Lateral epicondylitis of elbow 726.32 Active Assessment Pleurisy 511.0 Active Problem Special screening for malignant neoplasms, colon V76.51 Active Problem Acute bronchitis 466.0 Active Problem Acute maxillary sinusitis 461.0 Active Medications Medication Code System Code Instructions Start Date End Date Status Dosage Trileptal [facility] [address]-15 300 MG Orally 2 times a day Apr 24, 2015 as directed Singulair [facility] 96276212002 10 MG TAKE ONE TABLET BY MOUTH ONCE DAILY Prilosec OTC [facility] [address]686 20 MG Orally Once a day 1 tablet Alprazolam [facility] [address]-64 0.5 MG Orally Once a day PRN for anxiety 1 tablet Flonase [facility] [address]-50 50 MCG/DOSE Nasally Once a day 1 spray in each nostril Symbicort [facility] [address]-22 160-4.5 mcg/actuation May 16, 2014 inhale 2 puffs by inhalation route 2 times per day in the morning and evening ZyrTEC [facility] [address]-74 10 MG Orally Once a day 1 tablet as needed Prazosin HCl [facility] [address]-07 2 MG Orally Once at bedtime March 09, 2015 1 capsule Sertraline HCl [facility] [address]-32 50 MG Orally Once a day Apr 24, 2015 1 tablet PredniSONE [facility] [address]-30 10 MG Orally Twice a day Apr 25, 2015 Apr 30, 2015 1 tablet with food or milk Albuterol Sulfate [facility] [address]-94 2.5 mg /3 mL (0.083 %) Oct 04, 2011 inhale 3 milliliters by Inhalation route every 4 hours for cough and wheeze PRNfor wheezing or cough Procedures Procedure Coding System Code Date TORADOL (IM) 15 MG/ML (UP TO 15 MG) CPT-4 J1885 Apr 25, 2015 THER/PROPH/DIAG INJ, SC/IM CPT-4 39642 Apr 25, 2015 MEASURE BLOOD OXYGEN LEVEL CPT-4 24182 Apr 25, 2015 Office Visit, Est Pt., Level 3 CPT-4 23101 Apr 25, 2015 Vital Signs Date/Time: Apr 25, 2015 Temperature 97.2 F Weight 212.3 lbs Height 65 in Oximetry 97 % Blood Pressure Diastolic 82 mmHg Blood Pressure Systolic 120 mmHg Cardiac Monitoring Heart Rate 68 bpm BMI 35.32 Index Results No Known Results Summary Purpose eClinicalWorks Submission
--- OUTSIDE RECORDS SUMMARY | 2018-09-27 19:33 | XMS REPORT ---
Author Author ALLEN MERAZ [facility] eClinicalWorks Address Unknown Phone Unavailable Care Team Providers Care Almond Pan Finisher Name Role Phone ALLEN MERAZ CP Unavailable Allergies, Adverse Reactions, Alerts Substance [...] infections of unspecified site 465.9 Active Assessment Lymphadenopathy R59.1 Active Problem Lateral epicondylitis of elbow 726.32 Active Assessment Insect bite, sequela W57.XXXS Active Problem Special screening for malignant neoplasms, colon V76.51 Active Problem Acute bronchitis 466.0 Active Problem Acute maxillary sinusitis 461.0 Active Medications Medication Code System Code Instructions Start Date End Date Status Dosage Prilosec OTC [facility] [address]2472 20 MG Orally Once a day 1 tablet ZyrTEC [facility] [address]-86 10 MG Orally Once a day 1 tablet as needed Ventolin HFA [facility] [address]-98 108 (90 Base) MCG/ACT Inhalation every 4 hrs Jul 12, 2015 2 puffs as needed Singulair [facility] 22094448827 10 MG TAKE ONE TABLET BY MOUTH ONCE DAILY Ibuprofen [facility] [address]-52 200 MG Orally every 6 hrs 1 tablet as needed Prazosin HCl [facility] [address]-96 2 MG Orally Once at bedtime March 09, 2015 2 capsule BusPIRone HCl [facility] [address]-99 10 MG Orally Twice a day 2 tablets Flonase [facility] [address]-59 50 MCG/DOSE Nasally Once a day 1 spray in each nostril Symbicort [facility] [address]-67 160-4.5 mcg/actuation May 16, 2014 inhale 2 puffs by inhalation route 2 times per day in the morning and evening Albuterol Sulfate [facility] [address]-81 2.5 mg /3 mL (0.083 %) Oct 04, 2011 inhale 3 milliliters by Inhalation route every 4 hours for cough and wheeze PRNfor wheezing or cough Sertraline HCl [facility] [address]-00 50 mg Orally Once a day 1.5 tablet Procedures Procedure Coding System Code Date Office Visit, Est Pt., Level 3 CPT-4 98844 January 30, 2016 Vital Signs Date/Time: January 30, 2016 Cardiac Monitoring Heart Rate 88 bpm Weight 220.4 lbs Height 65 in BMI 36.67 Index Blood Pressure Diastolic 98 mmHg Blood Pressure Systolic 140 mmHg Results No Known Results Summary Purpose eClinicalWorks Submission
--- OUTSIDE RECORDS SUMMARY | 2018-09-27 19:33 | XMS REPORT ---
Author Author ALLEN MERAZ [facility] eClinicalWorks Address Unknown Phone Unavailable Care Team Providers Care Records Manager Name Role Phone ALLEN MERAZ CP Unavailable Allergies No Known Allergies Problems Problem Type Condition ICD-9 Code Onset [...] Lateral epicondylitis of elbow 726.32 Active Assessment Bipolar 1 disorder 296.7 Active Problem Special screening for malignant neoplasms, colon V76.51 Active Problem Acute bronchitis 466.0 Active Problem Acute maxillary sinusitis 461.0 Active Medications Medication Code System Code Instructions Start Date End Date Status Dosage Loxapine [facility] [address]-47 10 MG 2 times a day May 11, 2015 1 tablet Results No Known Results Summary Purpose eClinicalWorks Submission
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
--- OUTSIDE RECORDS SUMMARY | 2018-09-27 19:34 | XMS REPORT ---
Author Author TARAN PENDLETON [facility] eClinicalWorks Address Unknown Phone Unavailable Care Team Providers Care Group Work Program Director Name Role Phone TARAN PENDLETON CP Unavailable Allergies, Adverse Reactions, Alerts Substance [...] infections of unspecified site 465.9 Active Assessment Cough R05 Active Problem Lateral epicondylitis of elbow 726.32 Active Assessment Acute bacterial sinusitis J01.90 Active Problem Special screening for malignant neoplasms, colon V76.51 Active Problem Acute bronchitis 466.0 Active Problem Acute maxillary sinusitis 461.0 Active Medications Medication Code System Code Instructions Start Date End Date Status Dosage Prazosin HCl [facility] [address]-57 2 MG Orally Once at bedtime March 09, 2015 2 capsule Symbicort [facility] [address]-60 160-4.5 mcg/actuation May 16, 2014 inhale 2 puffs by inhalation route 2 times per day in the morning and evening ZyrTEC [facility] [address]-54 10 MG Orally Once a day 1 tablet as needed Tessalon Perles [facility] [address]-42 100 MG Orally Three times a day Sep 03, 2015 Sep 08, 2015 1 capsule as needed Doxycycline Hyclate [facility] [address]-13 100 MG Orally every 12 hrs Sep 03, 2015 Sep 08, 2015 1 capsule Singulair [facility] 81892576800 10 MG TAKE ONE TABLET BY MOUTH ONCE DAILY Prilosec OTC [facility] [address]3357 20 MG Orally Once a day 1 tablet Albuterol Sulfate [facility] [address]-68 2.5 mg /3 mL (0.083 %) Oct 04, 2011 inhale 3 milliliters by Inhalation route every 4 hours for cough and wheeze PRNfor wheezing or cough Ventolin HFA [facility] [address]-64 108 (90 Base) MCG/ACT Inhalation every 4 hrs Jul 12, 2015 2 puffs as needed Alprazolam [facility] [address]-57 0.5 MG Orally Twice a day as needed for anxiety 1 tablet Tizanidine HCl [facility] [address]-63 4 MG Orally every 8 hrs Aug 23, 2015 1 tablet as needed Sertraline HCl [facility] [address]-84 50 MG Orally Once a day Apr 24, 2015 1 tablet Procedures Procedure Coding System Code Date Office Visit, Est Pt., Level 3 CPT-4 36280 Sep 03, 2015 Vital Signs Date/Time: Sep 03, 2015 Temperature 97.4 F Weight 224 lbs Height 65 in BMI 37.27 Index Blood Pressure Diastolic 88 mmHg Blood Pressure Systolic 124 mmHg Cardiac Monitoring Heart Rate 102 bpm Results No Known Results Summary Purpose eClinicalWorks Submission
--- OUTSIDE RECORDS SUMMARY | 2018-09-27 19:34 | XMS REPORT ---
Author Author ALLEN MERAZ [facility] eClinicalWorks Address Unknown Phone Unavailable Care Team Providers Care Stonework Tracer Name Role Phone ALLEN MERAZ CP Unavailable [...]
--- OUTSIDE RECORDS SUMMARY | 2018-09-27 19:35 | XMS REPORT ---
Author Author MONICA MOSS [employer] Address Unknown Phone Unavailable Care Team Providers Care Field Staff Manager Name Role Phone MONICA MOSS CP Unavailable [...] infections of unspecified site 465.9 Active Assessment Bipolar 1 disorder, mixed, moderate 296.62 Active Problem Lateral epicondylitis of elbow 726.32 Active Assessment Posttraumatic stress disorder 309.81 Active Problem Special screening for malignant neoplasms, colon V76.51 Active Problem Acute bronchitis 466.0 Active Problem Acute maxillary sinusitis 461.0 Active Medications Medication Code System Code Instructions Start Date End Date Status Dosage Sertraline HCl [facility] [address]-64 50 MG Orally Once a day Apr 24, 2015 1 tablet Singulair [facility] 34894493891 10 MG TAKE ONE TABLET BY MOUTH ONCE DAILY Prilosec OTC [facility] [address]21 20 MG Orally Once a day 1 tablet Alprazolam [facility] [address]-99 0.5 MG Orally Once a day PRN for anxiety 1 tablet Albuterol Sulfate [facility] [address]-33 2.5 mg /3 mL (0.083 %) Oct 04, 2011 inhale 3 milliliters by Inhalation route every 4 hours for cough and wheeze PRNfor wheezing or cough Symbicort [facility] [address]-83 160-4.5 mcg/actuation May 16, 2014 inhale 2 puffs by inhalation route 2 times per day in the morning and evening ZyrTEC [facility] [address]-21 10 MG Orally Once a day 1 tablet as needed Trileptal [facility] [address]-24 300 MG Orally 2 times a day Apr 24, 2015 as directed Prazosin HCl [facility] [address]-95 2 MG Orally Once at bedtime March 09, 2015 1 capsule Flonase [facility] [address]-30 50 MCG/DOSE Nasally Once a day 1 spray in each nostril Procedures Procedure Coding System Code Date Office Visit, Est Pt., Level 4 CPT-4 72082 Apr 24, 2015 Vital Signs Date/Time: Apr 24, 2015 Cardiac Monitoring Heart Rate 64 bpm Weight 211.5 lbs Height 65 in BMI 35.19 Index Blood Pressure Diastolic 80 mmHg Blood Pressure Systolic 144 mmHg Results No Known Results Summary Purpose eClinicalWorks Submission
--- OUTSIDE RECORDS SUMMARY | 2018-09-27 19:35 | XMS REPORT ---
Author Author MONICA MOSS e[employer] Address Unknown Phone Unavailable Care Team Providers Care Rn Transport Name Role Phone MONICA MOSS CP Unavailable [...] Instructions Start Date End Date Status Dosage Alprazolam [facility] [address]-39 0.5 MG Orally Twice a day as needed for anxiety 1 tablet Results No Known Results Summary Purpose eClinicalWorks Submission
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
--- OUTSIDE RECORDS SUMMARY | 2018-09-27 19:36 | XMS REPORT ---
Author Author MONICA MOSS [employer] Address Unknown Phone Unavailable Care Team Providers Care Chief Ii Dispatcher Name Role Phone MONICA MOSS CP Unavailable [...]
--- OUTSIDE RECORDS SUMMARY | 2018-09-27 19:36 | XMS REPORT ---
Author Author ALLEN MERAZ [facility] eClinical[employer] Address Unknown Phone Unavailable Care Team Providers Care Casting Molder Name Role Phone ALLEN MERAZ CP Unavailable [...] Instructions Start Date End Date Status Dosage Ventolin HFA [facility] [address]-04 108 (90 Base) MCG/ACT Inhalation every 4 hrs Jul 12, 2015 2 puffs as needed Symbicort [facility] [address]-67 160-4.5 mcg/actuation May 16, 2014 inhale 2 puffs by inhalation route 2 times per day in the morning and evening Results No Known Results Summary Purpose eClinicalWorks Submission
--- OUTSIDE RECORDS SUMMARY | 2018-09-27 19:36 | XMS REPORT ---
Author Author ALLEN MERAZ [facility] Address [address] [place] [address] Care Team Providers Care Parachute Cushion Installer Name Role Phone ALLEN MERAZ Unavailable PROBLEMS Type Condition ICD9-CM Code UAW84-HU Code Onset Dates Condition Status SNOMED Code Problem Pain in joint, ankle and foot 719.47 Active 204810288 Problem Asthma, unspecified, unspecified status 493.90 Active 52215542 Problem Unspecified disorder of skin and subcutaneous tissue 709.9 Active 26230413 Problem Unspecified closed fracture of ankle 824.8 Active 14010251 Problem Dysthymic disorder 300.4 Active 65375870 Problem Attention deficit disorder of childhood 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 314.00 Active 38113428 Problem Contact dermatitis and other eczema due to solvents 692.2 Active Problem Acute sinusitis, unspecified 461.9 Active 24853700 Problem Major depressive disorder, recurrent episode, unspecified 296.30 Active 644165708 Problem Special screening for malignant neoplasms, vagina V76.47 Active 555080345 Problem Pain in joint, forearm 719.43 Active 564029931 Problem Postmenopausal bleeding 627.1 Active 34230427 Problem Hormone replacement therapy (postmenopausal) V07.4 Active 224377311 Problem Dysfunction of Eustachian tube 381.81 Active 19247346 Problem Other screening breast examination V76.19 Active 98597688 Problem Rosacea 695.3 Active 135050004 Problem Manic disorder, recurrent episode, moderate 296.12 Active 894360135 Problem Posttraumatic stress disorder 309.81 Active 98874780 Problem Diarrhea 787.91 Active 31682747 Problem Herpes simplex without mention of complication 054.9 Active 462474636 Problem Encounter for long-term (current) use of other medications V58.69 Active 367836242 Problem Dissociative disorder or reaction, 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 Active 03572357 Problem Screening for malignant neoplasm of the cervix V76.2 Active 964056942 Problem Anxiety state 300.00 Active 450847678 Problem Depressive disorder, not elsewhere classified 311 Active 85053716 Problem Need for prophylactic vaccination and inoculation, Influenza V04.81 Active 853400895 Problem Cough 786.2 Active 74699159 Problem Major depressive disorder, recurrent episode, moderate 296.32 Active 44044686 Problem Acute bronchitis 466.0 Active 63600489 Problem Unspecified hearing loss 389.9 Active 13873369 Problem Acute upper respiratory infections of unspecified site 465.9 Active 34925494 Problem Other closed fractures of distal end of radius (alone) 813.42 Active 40197373 Problem Wheezing 786.07 Active 47025033 Assessment Yeast infection of the vagina B37.3 08 Apr, 2016 Active 65968085 Problem Special screening for malignant neoplasms, colon V76.51 Active 073196957 Problem Herpes zoster without mention of complication 053.9 Active 423729434 Problem Family history of malignant neoplasm of gastrointestinal tract V16.0 Active 708914071 Problem Acute maxillary sinusitis 461.0 Active 49177375 Problem Lateral epicondylitis of elbow 726.32 Active 195913965 ALLERGIES No Known Allergies SOCIAL HISTORY No smoking Hx information available PLAN OF CARE VITAL SIGNS MEDICATIONS Medication Instructions Dosage Frequency Start Date End Date Duration Status Diflucan 150 MG Orally one time. May repeat in 3 days if symptoms persist. 1 tablet Apr, 4 days Active RESULTS No Results PROCEDURES No Known procedures IMMUNIZATIONS No Known Immunizations
--- OUTSIDE RECORDS SUMMARY | 2018-09-27 19:36 | XMS REPORT ---
Author Author ALLEN MERAZ [facility] eClinicalWorks Address Unknown Phone Unavailable Care Team Providers Care Warehouse Production Worker Name Role Phone ALLEN MERAZ CP Unavailable [...] Instructions Start Date End Date Status Dosage Tizanidine HCl [facility] [address]-41 4 MG Orally every 8 hrs Aug 23, 2015 1 tablet as needed Results No Known Results Summary Purpose eClinicalWorks Submission
--- OUTSIDE RECORDS SUMMARY | 2018-09-27 19:36 | XMS REPORT ---
Author Author ALLEN MERAZ [facility] eClinicalWorks Address Unknown Phone Unavailable Care Team Providers Care Head Refrigerating Engineer Name Role Phone ALLEN MERAZ CP Unavailable [...] sinusitis 461.0 Active Medications No Known Medications Vital Signs Date/Time: May 02, 2015 Blood Pressure Diastolic 82 mmHg Blood Pressure Systolic 134 mmHg Height 65 in Results No Known Results Summary Purpose eClinicalWorks Submission
--- OUTSIDE RECORDS SUMMARY | 2018-09-27 19:36 | XMS REPORT ---
Author Author ALLEN MERAZ [facility] Address [address] [place] [address] Care Team Providers Care Retail Associate Manager Bilingual Name Role Phone ALLEN MERAZ Unavailable PROBLEMS Type Condition ICD9-CM Code SQQ39-OK Code Onset Dates Condition Status SNOMED Code Problem Pain in joint, ankle and foot 719.47 Active 955921384 Problem Asthma, unspecified, unspecified status 493.90 Active 21908428 Problem Unspecified disorder of skin and subcutaneous tissue 709.9 Active 99239551 Problem Unspecified closed fracture of ankle 824.8 Active 65203271 Problem Dysthymic disorder 300.4 Active 17398829 Problem Attention deficit disorder of childhood 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 314.00 Active 85290330 Problem Contact dermatitis and other eczema due to solvents 692.2 Active Problem Acute sinusitis, unspecified 461.9 Active 57712617 Problem Major depressive disorder, recurrent episode, unspecified 296.30 Active 150848711 Problem Special screening for malignant neoplasms, vagina V76.47 Active 896901777 Problem Pain in joint, forearm 719.43 Active 368967258 Problem Postmenopausal bleeding 627.1 Active 37672306 Problem Hormone replacement therapy (postmenopausal) V07.4 Active 331035976 Problem Dysfunction of Eustachian tube 381.81 Active 82885677 Problem Other screening breast examination V76.19 Active 82754116 Problem Rosacea 695.3 Active 260775629 Problem Manic disorder, recurrent episode, moderate 296.12 Active 201459977 Problem Posttraumatic stress disorder 309.81 Active 27335953 Problem Diarrhea 787.91 Active 39279306 Problem Herpes simplex without mention of complication 054.9 Active 536831611 Problem Encounter for long-term (current) use of other medications V58.69 Active 620865960 Problem Dissociative disorder or reaction, 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 Active 92553311 Problem Screening for malignant neoplasm of the cervix V76.2 Active 864454546 Problem Anxiety state 300.00 Active 657768133 Problem Depressive disorder, not elsewhere classified 311 Active 15499131 Problem Need for prophylactic vaccination and inoculation, Influenza V04.81 Active 432631207 Problem Cough 786.2 Active 53966500 Problem Major depressive disorder, recurrent episode, moderate 296.32 Active 04601827 Problem Acute bronchitis 466.0 Active 29629913 Problem Unspecified hearing loss 389.9 Active 25702287 Problem Acute upper respiratory infections of unspecified site 465.9 Active 93281513 Problem Other closed fractures of distal end of radius (alone) 813.42 Active 02791493 Problem Wheezing 786.07 Active 25988039 Problem Special screening for malignant neoplasms, colon V76.51 Active 399068818 Problem Herpes zoster without mention of complication 053.9 Active 272315451 Problem Family history of malignant neoplasm of gastrointestinal tract V16.0 Active 244652337 Problem Acute maxillary sinusitis 461.0 Active 74754755 Problem Lateral epicondylitis of elbow 726.32 Active 145065720 ALLERGIES No Known Allergies SOCIAL HISTORY No smoking Hx information available PLAN OF CARE VITAL SIGNS MEDICATIONS No Known Medications RESULTS No Results PROCEDURES No Known procedures IMMUNIZATIONS No Known Immunizations
--- OUTSIDE RECORDS SUMMARY | 2018-09-27 19:39 | XMS REPORT | Continuity of Care Document ---
Author Author Formerly [facility] Address Unknown Phone Unavailable Allergies Active Description Code Type Severity Reaction Onset Reported/Identified Relationship to Patient Clinical Status Yes codeine Drug Allergy N/A N/A 02/26/2010 Yes codeine Drug Allergy 02/26/2010 Yes sulfa drug Drug Allergy 02/26/2010 Yes MSG Food Allergy N/A N/A 04/22/2010 Yes NATURAL LATEX RUBBER OA N/A N/A 04/22/2010 Yes MSG Food Allergy 04/22/2010 Yes NATURAL LATEX RUBBER OA 04/22/2010 Yes Mirapex 0.25 mg Tablet Drug Allergy 02/07/2012 Medications There is no data. Problems Date Dx Coded Attending Type Code Diagnosis Diagnosed By 02/19/2010 311 DEPRESSIVE DISORDER NOS 02/19/2010 493.90 Asthma Unspecified 02/19/2010 530.81 Gerd 02/19/2010 717.3 Other And Unspecified Derangement Of Medial Meniscus 02/19/2010 847.2 Sprains And Strains Of Back, Lumbar 02/19/2010 EDU WILLOUGHBY DO 311 DEPRESSIVE DISORDER NOS 02/19/2010 EDU WILLOUGHBY DO 493.90 Asthma Unspecified 02/19/2010 EDU WILLOUGHBY DO K 530.81 Gerd 02/19/2010 EDU WILLOUGHBY DO 717.3 Other And Unspecified Derangement Of Medial Meniscus 02/19/2010 EDU WILLOUGHBY DO K 847.2 Sprains And Strains Of Back, Lumbar 02/19/2010 MURIEL POST DO F 311 DEPRESSIVE DISORDER NOS 02/19/2010 MURIEL POST DO 493.90 Asthma Unspecified 02/19/2010 MURIEL POST DO 530.81 Gerd 02/19/2010 MURIEL POST DO F 717.3 Other And Unspecified Derangement Of Medial Meniscus 02/19/2010 MURIEL POST DO F 847.2 Sprains And Strains Of Back, Lumbar 02/19/2010 311 DEPRESSIVE DISORDER NOS 02/19/2010 493.90 Asthma Unspecified 02/19/2010 530.81 Gerd 02/19/2010 717.3 Other And Unspecified Derangement Of Medial Meniscus 02/19/2010 847.2 Sprains And Strains Of Back, Lumbar 02/19/2010 311 DEPRESSIVE DISORDER NOS 02/19/2010 493.90 Asthma Unspecified 02/19/2010 530.81 Gerd 02/19/2010 717.3 Other And Unspecified Derangement Of Medial Meniscus 02/19/2010 847.2 Sprains And Strains Of Back, Lumbar 02/19/2010 311 DEPRESSIVE DISORDER NOS 02/19/2010 493.90 Asthma Unspecified 02/19/2010 530.81 Gerd 02/19/2010 717.3 Other And Unspecified Derangement Of Medial Meniscus 02/19/2010 847.2 Sprains And Strains Of Back, Lumbar 02/19/2010 311 DEPRESSIVE DISORDER NOS 02/19/2010 493.90 Asthma Unspecified 02/19/2010 530.81 Gerd 02/19/2010 717.3 Other And Unspecified Derangement Of Medial Meniscus 02/19/2010 847.2 Sprains And Strains Of Back, Lumbar 02/19/2010 311 DEPRESSIVE DISORDER NOS 02/19/2010 493.90 Asthma Unspecified 02/19/2010 530.81 Gerd 02/19/2010 717.3 Other And Unspecified Derangement Of Medial Meniscus 02/19/2010 847.2 Sprains And Strains Of Back, Lumbar 02/19/2010 KT CORRECTIONAL SECURITY OFFICER, ALLEN S 311 DEPRESSIVE DISORDER NOS 02/19/2010 KT CORRECTIONAL SECURITY OFFICER, ALLEN S 493.90 Asthma Unspecified 02/19/2010 KT CORRECTIONAL SECURITY OFFICER, ALLEN S 530.81 Gerd 02/19/2010 KT CORRECTIONAL SECURITY OFFICER, ALLEN S 717.3 Other And Unspecified Derangement Of Medial Meniscus 02/19/2010 KT CORRECTIONAL SECURITY OFFICER, ALLEN S 847.2 Sprains And Strains Of Back, Lumbar 02/19/2010 WILLOUGHBY DOESTELLAA K 311 DEPRESSIVE DISORDER NOS 02/19/2010 WILLOUGHBY DO EDU K 493.90 Asthma Unspecified 02/19/2010 WILLOUGHBY DO EDU K 530.81 Gerd 02/19/2010 WILLOUGHBY DO EDU K 717.3 Other And Unspecified Derangement Of Medial Meniscus 02/19/2010 EDU WILLOUGHBY DO 847.2 Sprains And Strains Of Back, Lumbar 02/19/2010 AMRIT CORRECTIONAL SECURITY OFFICER, MAYRA A 311 DEPRESSIVE DISORDER NOS 02/19/2010 AMRIT CORRECTIONAL SECURITY OFFICER, MAYRA A 493.90 Asthma Unspecified 02/19/2010 AMRIT CORRECTIONAL SECURITY OFFICER, MAYRA A 530.81 Gerd 02/19/2010 AMRIT CORRECTIONAL SECURITY OFFICER, MAYRA A 717.3 Other And Unspecified Derangement Of Medial Meniscus 02/19/2010 AMRIT CORRECTIONAL SECURITY OFFICER, MAYRA A 847.2 Sprains And Strains Of Back, Lumbar 02/19/2010 JORDAN PARIS APRN 311 DEPRESSIVE DISORDER NOS 02/19/2010 [place] CORRECTIONAL SECURITY OFFICER, JORDAN JOYNER 493.90 Asthma Unspecified 02/19/2010 [place] CORRECTIONAL SECURITY OFFICER, JORDAN JOYNER 530.81 Gerd 02/19/2010 [place] CORRECTIONAL SECURITY OFFICER, JORDAN JOYNER 717.3 Other And Unspecified Derangement Of Medial Meniscus 02/19/2010 [place] CORRECTIONAL SECURITY OFFICERJORDAN 847.2 Sprains And Strains Of Back, Lumbar 02/19/2010 KT ENGLE, ALLEN S 311 DEPRESSIVE DISORDER NOS 02/19/2010 KT CORRECTIONAL SECURITY OFFICER, ALELN S 493.90 Asthma Unspecified 02/19/2010 KT CORRECTIONAL SECURITY OFFICER, ALLEN S 530.81 Gerd 02/19/2010 KT CORRECTIONAL SECURITY OFFICER, ALLEN S 717.3 Other And Unspecified Derangement Of Medial Meniscus 02/19/2010 KT CORRECTIONAL SECURITY OFFICER, ALLEN S 847.2 Sprains And Strains Of Back, Lumbar 02/19/2010 311 DEPRESSIVE DISORDER NOS 02/19/2010 493.90 Asthma Unspecified 02/19/2010 530.81 Gerd 02/19/2010 717.3 Other And Unspecified Derangement Of Medial Meniscus 02/19/2010 847.2 Sprains And Strains Of Back, Lumbar 02/19/2010 JOCELYN CORRECTIONAL SECURITY OFFICER, ALY R 311 DEPRESSIVE DISORDER NOS 02/19/2010 JOCELYN CORRECTIONAL SECURITY OFFICER, ALY R 493.90 Asthma Unspecified 02/19/2010 JOCELYN CORRECTIONAL SECURITY OFFICER, ALY R 530.81 Gerd 02/19/2010 JOCELYN CORRECTIONAL SECURITY OFFICER, ALY R 717.3 Other And Unspecified Derangement Of Medial Meniscus 02/19/2010 JOCELYN CORRECTIONAL SECURITY OFFICER, ALY R 847.2 Sprains And Strains Of Back, Lumbar 02/19/2010 KT CORRECTIONAL SECURITY OFFICER, ALLEN S 311 DEPRESSIVE DISORDER NOS 02/19/2010 KT CORRECTIONAL SECURITY OFFICER, ALLEN S 493.90 Asthma Unspecified 02/19/2010 KT CORRECTIONAL SECURITY OFFICER, ALLEN S 530.81 Gerd 02/19/2010 KT CORRECTIONAL SECURITY OFFICER, ALLEN S 717.3 Other And Unspecified Derangement Of Medial Meniscus 02/19/2010 KT CORRECTIONAL SECURITY OFFICER, ALLEN S 847.2 Sprains And Strains Of Back, Lumbar 02/19/2010 KT CORRECTIONAL SECURITY OFFICER, ALLEN S 311 DEPRESSIVE DISORDER NOS 02/19/2010 KT CORRECTIONAL SECURITY OFFICER, ALLEN S 493.90 Asthma Unspecified 02/19/2010 KT CORRECTIONAL SECURITY OFFICER, ALLEN S 530.81 Gerd 02/19/2010 KT CORRECTIONAL SECURITY OFFICER, ALLEN S 717.3 Other And Unspecified Derangement Of Medial Meniscus 02/19/2010 KT CORRECTIONAL SECURITY OFFICER, ALLEN S 847.2 Sprains And Strains Of Back, Lumbar 02/19/2010 KT CORRECTIONAL SECURITY OFFICER, ALLEN S 311 DEPRESSIVE DISORDER NOS 02/19/2010 KT CORRECTIONAL SECURITY OFFICER, ALLEN S 493.90 Asthma Unspecified 02/19/2010 KT CORRECTIONAL SECURITY OFFICER, ALLEN S 530.81 Gerd 02/19/2010 KT CORRECTIONAL SECURITY OFFICER, ALLEN S 717.3 Other And Unspecified Derangement Of Medial Meniscus 02/19/2010 KT CORRECTIONAL SECURITY OFFICER, ALLEN S 847.2 Sprains And Strains Of Back, Lumbar 02/19/2010 KT CORRECTIONAL SECURITY OFFICER, ALLEN S 311 DEPRESSIVE DISORDER NOS 02/19/2010 KT CORRECTIONAL SECURITY OFFICER, ALLEN S 493.90 Asthma Unspecified 02/19/2010 KT CORRECTIONAL SECURITY OFFICER, ALLEN S 530.81 Gerd 02/19/2010 KT CORRECTIONAL SECURITY OFFICER, ALLEN S 717.3 Other And Unspecified Derangement Of Medial Meniscus 02/19/2010 KT CORRECTIONAL SECURITY OFFICER, ALLEN S 847.2 Sprains And Strains Of Back, Lumbar 02/19/2010 KT CORRECTIONAL SECURITY OFFICER, ALLEN S 311 DEPRESSIVE DISORDER NOS 02/19/2010 KT CORRECTIONAL SECURITY OFFICER, ALLEN S 493.90 Asthma Unspecified 02/19/2010 KT CORRECTIONAL SECURITY OFFICER, ALLEN S 530.81 Gerd 02/19/2010 KT CORRECTIONAL SECURITY OFFICER, ALLEN S 717.3 Other And Unspecified Derangement Of Medial Meniscus 02/19/2010 KT CORRECTIONAL SECURITY OFFICER, ALLEN S 847.2 Sprains And Strains Of Back, Lumbar 02/19/2010 KT CORRECTIONAL SECURITY OFFICER, ALLEN S 311 DEPRESSIVE DISORDER NOS 02/19/2010 KT CORRECTIONAL SECURITY OFFICER, ALLEN S 493.90 Asthma Unspecified 02/19/2010 KT CORRECTIONAL SECURITY OFFICER, ALLEN S 530.81 Gerd 02/19/2010 KT CORRECTIONAL SECURITY OFFICER, ALLEN S 717.3 Other And Unspecified Derangement Of Medial Meniscus 02/19/2010 KT CORRECTIONAL SECURITY OFFICER, ALLEN S 847.2 Sprains And Strains Of Back, Lumbar 02/19/2010 KT CORRECTIONAL SECURITY OFFICER, ALLEN S 311 DEPRESSIVE DISORDER NOS 02/19/2010 KT CORRECTIONAL SECURITY OFFICER, ALLEN S 493.90 Asthma Unspecified 02/19/2010 KT CORRECTIONAL SECURITY OFFICER, ALLEN S 530.81 Gerd 02/19/2010 KT CORRECTIONAL SECURITY OFFICER, ALLEN S 717.3 Other And Unspecified Derangement Of Medial Meniscus 02/19/2010 KT CORRECTIONAL SECURITY OFFICER, ALLEN S 847.2 Sprains And Strains Of Back, Lumbar 02/19/2010 KT CORRECTIONAL SECURITY OFFICER, ALLEN S 311 DEPRESSIVE DISORDER NOS 02/19/2010 KT CORRECTIONAL SECURITY OFFICER, ALLEN S 493.90 Asthma Unspecified 02/19/2010 KT CORRECTIONAL SECURITY OFFICER, ALLEN S 530.81 Gerd 02/19/2010 KT CORRECTIONAL SECURITY OFFICER, ALLEN S 717.3 Other And Unspecified Derangement Of Medial Meniscus 02/19/2010 KT CORRECTIONAL SECURITY OFFICER, ALLEN S 847.2 Sprains And Strains Of Back, Lumbar 02/19/2010 KT CORRECTIONAL SECURITY OFFICER, ALLEN S 311 DEPRESSIVE DISORDER NOS 02/19/2010 KT CORRECTIONAL SECURITY OFFICER, ALLEN S 493.90 Asthma Unspecified 02/19/2010 KT CORRECTIONAL SECURITY OFFICER, ALLEN S 530.81 Gerd 02/19/2010 KT CORRECTIONAL SECURITY OFFICER, ALLEN S 717.3 Other And Unspecified Derangement Of Medial Meniscus 02/19/2010 ALLEN MERAZ APRN S 847.2 Sprains And Strains Of Back, Lumbar 02/26/2010 787.01 Nausea With Vomiting 02/26/2010 787.91 Diarrhea 02/26/2010 WILLOUGHBY DO EDU K 787.01 Nausea With Vomiting 02/26/2010 WILLOUGHBY DO EDU K 787.91 Diarrhea 02/26/2010 WERMAGDA MARTINS DOEN F 787.01 Nausea With Vomiting 02/26/2010 WERDER DOMAGDAEN F 787.91 Diarrhea 02/26/2010 787.01 Nausea With Vomiting 02/26/2010 787.91 Diarrhea 02/26/2010 787.01 Nausea With Vomiting 02/26/2010 787.91 Diarrhea 02/26/2010 787.01 Nausea With Vomiting 02/26/2010 787.91 Diarrhea 02/26/2010 787.01 Nausea With Vomiting 02/26/2010 787.91 Diarrhea 02/26/2010 787.01 Nausea With Vomiting 02/26/2010 787.91 Diarrhea 02/26/2010 ALLEN MERAZ APRN S 787.01 Nausea With Vomiting 02/26/2010 ALLEN MERAZ APRN S 787.91 Diarrhea 02/26/2010 WILLOUGHBY DOESTELLAA K 787.01 Nausea With Vomiting 02/26/2010 WILLOUGHBY DO EDU K 787.91 Diarrhea 02/26/2010 AMRITROMEL Rosario APRNIDI A 787.01 Nausea With Vomiting 02/26/2010 ROMEL MARCUS APRNIDI A 787.91 Diarrhea 02/26/2010 JORDAN PARIS APRN 787.01 Nausea With Vomiting 02/26/2010 JORDAN PARSI APRN 787.91 Diarrhea 02/26/2010 ALLEN MERAZ APRN S 787.01 Nausea With Vomiting 02/26/2010 ALLEN MERAZ APRN S 787.91 Diarrhea 02/26/2010 787.01 Nausea With Vomiting 02/26/2010 787.91 Diarrhea 02/26/2010 JOCELYN ENGLE ALY R 787.01 Nausea With Vomiting 02/26/2010 MAGI BANKS APRNINA R 787.91 Diarrhea 02/26/2010 KT CORRECTIONAL SECURITY OFFICER, ALLEN S 787.01 Nausea With Vomiting 02/26/2010 KT CORRECTIONAL SECURITY OFFICER, ALLEN S 787.91 Diarrhea 02/26/2010 KT CORRECTIONAL SECURITY OFFICER, ALLEN S 787.01 Nausea With Vomiting 02/26/2010 KT CORRECTIONAL SECURITY OFFICER, ALLEN S 787.91 Diarrhea 02/26/2010 KT CORRECTIONAL SECURITY OFFICER, ALLEN S 787.01 Nausea With Vomiting 02/26/2010 KT CORRECTIONAL SECURITY OFFICER, ALLEN S 787.91 Diarrhea 02/26/2010 KT CORRECTIONAL SECURITY OFFICER, ALLEN S 787.01 Nausea With Vomiting 02/26/2010 KT CORRECTIONAL SECURITY OFFICER, ALLEN S 787.91 Diarrhea 02/26/2010 KT CORRECTIONAL SECURITY OFFICER, ALLEN S 787.01 Nausea With Vomiting 02/26/2010 KT CORRECTIONAL SECURITY OFFICER, ALLEN S 787.91 Diarrhea 02/26/2010 KT CORRECTIONAL SECURITY OFFICER, ALLEN S 787.01 Nausea With Vomiting 02/26/2010 KT CORRECTIONAL SECURITY OFFICER, ALLEN S 787.91 Diarrhea 02/26/2010 KT CORRECTIONAL SECURITY OFFICER, ALLEN S 787.01 Nausea With Vomiting 02/26/2010 KT CORRECTIONAL SECURITY OFFICER, ALLEN S 787.91 Diarrhea 02/26/2010 KT CORRECTIONAL SECURITY OFFICER, ALLEN S 787.01 Nausea With Vomiting 02/26/2010 KT CORRECTIONAL SECURITY OFFICER, ALLEN S 787.91 Diarrhea 02/26/2010 KT CORRECTIONAL SECURITY OFFICER, ALLEN S 787.01 Nausea With Vomiting 02/26/2010 KT CORRECTIONAL SECURITY OFFICER, ALLEN S 787.91 Diarrhea 03/01/2010 692.6 Contact Dermatitis And Other Eczema, Due To Plants [except Food] 03/01/2010 EDU WILLOUGHBY DO 692.6 Contact Dermatitis And Other Eczema, Due To Plants [except Food] 03/01/2010 MURIEL POST DO 692.6 Contact Dermatitis And Other Eczema, Due To Plants [except Food] 03/01/2010 692.6 Contact Dermatitis And Other Eczema, Due To Plants [except Food] 03/01/2010 692.6 Contact Dermatitis And Other Eczema, Due To Plants [except Food] 03/01/2010 692.6 Contact Dermatitis And Other Eczema, Due To Plants [except Food] 03/01/2010 692.6 Contact Dermatitis And Other Eczema, Due To Plants [except Food] 03/01/2010 692.6 Contact Dermatitis And Other Eczema, Due To Plants [except Food] 03/01/2010 KT CORRECTIONAL SECURITY OFFICER, ALLEN S 692.6 Contact Dermatitis And Other Eczema, Due To Plants [except Food] 03/01/2010 WILLOUGHBY DO, EDU K 692.6 Contact Dermatitis And Other Eczema, Due To Plants [except Food] 03/01/2010 AMRIT CORRECTIONAL SECURITY OFFICER, MAYRA A 692.6 Contact Dermatitis And Other Eczema, Due To Plants [except Food] 03/01/2010 [place] CORRECTIONAL SECURITY OFFICER, JORDAN JOYNER 692.6 Contact Dermatitis And Other Eczema, Due To Plants [except Food] 03/01/2010 KT CORRECTIONAL SECURITY OFFICER, ALLEN S 692.6 Contact Dermatitis And Other Eczema, Due To Plants [except Food] 03/01/2010 692.6 Contact Dermatitis And Other Eczema, Due To Plants [except Food] 03/01/2010 JOCELYN CORRECTIONAL SECURITY OFFICER, ALY R 692.6 Contact Dermatitis And Other Eczema, Due To Plants [except Food] 03/01/2010 KT CORRECTIONAL SECURITY OFFICER, ALLEN S 692.6 Contact Dermatitis And Other Eczema, Due To Plants [except Food] 03/01/2010 KT CORRECTIONAL SECURITY OFFICER, ALLEN S 692.6 Contact Dermatitis And Other Eczema, Due To Plants [except Food] 03/01/2010 KT CORRECTIONAL SECURITY OFFICER, ALLEN S 692.6 Contact Dermatitis And Other Eczema, Due To Plants [except Food] 03/01/2010 KT CORRECTIONAL SECURITY OFFICER, ALLEN S 692.6 Contact Dermatitis And Other Eczema, Due To Plants [except Food] 03/01/2010 KT CORRECTIONAL SECURITY OFFICER, ALLEN S 692.6 Contact Dermatitis And Other Eczema, Due To Plants [except Food] 03/01/2010 KT CORRECTIONAL SECURITY OFFICER, ALLEN S 692.6 Contact Dermatitis And Other Eczema, Due To Plants [except Food] 03/01/2010 KT CORRECTIONAL SECURITY OFFICER, ALLEN S 692.6 Contact Dermatitis And Other Eczema, Due To Plants [except Food] 03/01/2010 KT CORRECTIONAL SECURITY OFFICER, ALLEN S 692.6 Contact Dermatitis And Other Eczema, Due To Plants [except Food] 03/01/2010 KT CORRECTIONAL SECURITY OFFICER, ALLEN S 692.6 Contact Dermatitis And Other Eczema, Due To Plants [except Food] 04/12/2010 NODX No Diagnosis 04/12/2010 EDU WILLOUGHBY DO NODX No Diagnosis 04/12/2010 MURIEL POST DO NODX No Diagnosis 04/12/2010 NODX No Diagnosis 04/12/2010 NODX No Diagnosis 04/12/2010 NODX No Diagnosis 04/12/2010 NODX No Diagnosis 04/12/2010 NODX No Diagnosis 04/12/2010 KT CORRECTIONAL SECURITY OFFICER, ALLEN S NODX No Diagnosis 04/12/2010 EDU WILLOUGHBY DO K NODX No Diagnosis 04/12/2010 AMRIT CORRECTIONAL SECURITY OFFICER, MAYRA A NODX No Diagnosis 04/12/2010 [place] CORRECTIONAL SECURITY OFFICER, JORDAN JOYNER NODX No Diagnosis 04/12/2010 KT CORRECTIONAL SECURITY OFFICER, ALLEN S NODX No Diagnosis 04/12/2010 NODX No Diagnosis 04/12/2010 JOCELYN CORRECTIONAL SECURITY OFFICER, ALY R NODX No Diagnosis 04/12/2010 KT CORRECTIONAL SECURITY OFFICER, ALLEN S NODX No Diagnosis 04/12/2010 KT CORRECTIONAL SECURITY OFFICER, ALLEN S NODX No Diagnosis 04/12/2010 KT CORRECTIONAL SECURITY OFFICER, ALLEN S NODX No Diagnosis 04/12/2010 KT CORRECTIONAL SECURITY OFFICER, ALLEN S NODX No Diagnosis 04/12/2010 KT CORRECTIONAL SECURITY OFFICER, ALLEN S NODX No Diagnosis 04/12/2010 KT CORRECTIONAL SECURITY OFFICER, ALLEN S NODX No Diagnosis 04/12/2010 KT CORRECTIONAL SECURITY OFFICER, ALLEN S NODX No Diagnosis 04/12/2010 KT CORRECTIONAL SECURITY OFFICER, ALLEN S NODX No Diagnosis 04/12/2010 KT CORRECTIONAL SECURITY OFFICER, ALLEN S NODX No Diagnosis 05/01/2010 493.92 Asthma (acute ) Exacerbation 05/01/2010 786.2 Cough 05/01/2010 EDU WILLOUGHBY DO 493.92 Asthma (acute) Exacerbation 05/01/2010 EDU WILLOUGHBY DO 786.2 Cough 05/01/2010 MURIEL POST DO 493.92 Asthma (acute) Exacerbation 05/01/2010 WERMURIEL MARTINS DO Linda 786.2 Cough 05/01/2010 493.92 Asthma (acute ) Exacerbation 05/01/2010 786.2 Cough 05/01/2010 493.92 Asthma (acute ) Exacerbation 05/01/2010 786.2 Cough 05/01/2010 493.92 Asthma (acute ) Exacerbation 05/01/2010 786.2 Cough 05/01/2010 493.92 Asthma (acute ) Exacerbation 05/01/2010 786.2 Cough 05/01/2010 493.92 Asthma (acute ) Exacerbation 05/01/2010 786.2 Cough 05/01/2010 KT CORRECTIONAL SECURITY OFFICER, ALLEN S 493.92 Asthma (acute) Exacerbation 05/01/2010 KT CORRECTIONAL SECURITY OFFICER, ALLEN S 786.2 Cough 05/01/2010 WILLOUGHBY DO EDU K 493.92 Asthma (acute) Exacerbation 05/01/2010 WILLOUGHBY DO, EDU K 786.2 Cough 05/01/2010 AMRIT CORRECTIONAL SECURITY OFFICER, MAYRA A 493.92 Asthma (acute) Exacerbation 05/01/2010 AMRIT CORRECTIONAL SECURITY OFFICER, MAYRA A 786.2 Cough 05/01/2010 [place] ENGLE JORDAN JOYNER 493.92 Asthma (acute) Exacerbation 05/01/2010 [place] ENGLE JORDAN JOYNER 786.2 Cough 05/01/2010 KT CORRECTIONAL SECURITY OFFICER, ALLEN S 493.92 Asthma (acute) Exacerbation 05/01/2010 KT CORRECTIONAL SECURITY OFFICER, ALLEN S 786.2 Cough 05/01/2010 493.92 Asthma (acute ) Exacerbation 05/01/2010 786.2 Cough 05/01/2010 JOCELYN CORRECTIONAL SECURITY OFFICER, ALY R 493.92 Asthma (acute) Exacerbation 05/01/2010 JOCELYN CORRECTIONAL SECURITY OFFICER, ALY R 786.2 Cough 05/01/2010 KT CORRECTIONAL SECURITY OFFICER, ALLEN S 493.92 Asthma (acute) Exacerbation 05/01/2010 KT CORRECTIONAL SECURITY OFFICER, ALLEN S 786.2 Cough 05/01/2010 KT CORRECTIONAL SECURITY OFFICER, ALLEN S 493.92 Asthma (acute) Exacerbation 05/01/2010 KT CORRECTIONAL SECURITY OFFICER, ALLEN S 786.2 Cough 05/01/2010 KT CORRECTIONAL SECURITY OFFICER, ALLEN S 493.92 Asthma (acute) Exacerbation 05/01/2010 KT CORRECTIONAL SECURITY OFFICER, ALLEN S 786.2 Cough 05/01/2010 KT CORRECTIONAL SECURITY OFFICER, ALLEN S 493.92 Asthma (acute) Exacerbation 05/01/2010 KT CORRECTIONAL SECURITY OFFICER, ALLEN S 786.2 Cough 05/01/2010 KT CORRECTIONAL SECURITY OFFICER, ALLEN S 493.92 Asthma (acute) Exacerbation 05/01/2010 KT CORRECTIONAL SECURITY OFFICER, ALLEN S 786.2 Cough 05/01/2010 KT CORRECTIONAL SECURITY OFFICER, ALLEN S 493.92 Asthma (acute) Exacerbation 05/01/2010 KT CORRECTIONAL SECURITY OFFICER, ALLEN S 786.2 Cough 05/01/2010 KT CORRECTIONAL SECURITY OFFICER, ALLEN S 493.92 Asthma (acute) Exacerbation 05/01/2010 KT CORRECTIONAL SECURITY OFFICER, ALLEN S 786.2 Cough 05/01/2010 KT CORRECTIONAL SECURITY OFFICER, ALLEN S 493.92 Asthma (acute) Exacerbation 05/01/2010 KT CORRECTIONAL SECURITY OFFICER, ALLEN S 786.2 Cough 05/01/2010 KT CORRECTIONAL SECURITY OFFICER, ALLEN S 493.92 Asthma (acute) Exacerbation 05/01/2010 KT CORRECTIONAL SECURITY OFFICER, ALLEN S 786.2 Cough 05/04/2010 465.9 Upper Respiratory Infection 05/04/2010 786.2 Cough 05/04/2010 EDU WILLOUGHBY DO 465.9 Upper Respiratory Infection 05/04/2010 EDU WILLOUGHBY DO 786.2 Cough 05/04/2010 MURIEL POST DO 465.9 Upper Respiratory Infection 05/04/2010 MURIEL POST DO 786.2 Cough 05/04/2010 465.9 Upper Respiratory Infection 05/04/2010 786.2 Cough 05/04/2010 465.9 Upper Respiratory Infection 05/04/2010 786.2 Cough 05/04/2010 465.9 Upper Respiratory Infection 05/04/2010 786.2 Cough 05/04/2010 465.9 Upper Respiratory Infection 05/04/2010 786.2 Cough 05/04/2010 465.9 Upper Respiratory Infection 05/04/2010 786.2 Cough 05/04/2010 KT CORRECTIONAL SECURITY OFFICER, ALLEN S 465.9 Upper Respiratory Infection 05/04/2010 KT CORRECTIONAL SECURITY OFFICER, ALLEN S 786.2 Cough 05/04/2010 WILLOUGHBY DO, EDU K 465.9 Upper Respiratory Infection 05/04/2010 WILLOUGHBY DO, EDU K 786.2 Cough 05/04/2010 AMRIT CORRECTIONAL SECURITY OFFICER, MAYRA A 465.9 Upper Respiratory Infection 05/04/2010 AMRIT CORRECTIONAL SECURITY OFFICER, MAYRA A 786.2 Cough 05/04/2010 [place] CORRECTIONAL SECURITY OFFICER, JORDAN JOYNER 465.9 Upper Respiratory Infection 05/04/2010 [place] CORRECTIONAL SECURITY OFFICER, JORDAN JOYNER 786.2 Cough 05/04/2010 KT CORRECTIONAL SECURITY OFFICER, ALLEN S 465.9 Upper Respiratory Infection 05/04/2010 KT CORRECTIONAL SECURITY OFFICER, ALLEN S 786.2 Cough 05/04/2010 465.9 Upper Respiratory Infection 05/04/2010 786.2 Cough 05/04/2010 JOCELYN CORRECTIONAL SECURITY OFFICER, ALY R 465.9 Upper Respiratory Infection 05/04/2010 JOCELYN CORRECTIONAL SECURITY OFFICER, ALY R 786.2 Cough 05/04/2010 KT CORRECTIONAL SECURITY OFFICER, ALLEN S 465.9 Upper Respiratory Infection 05/04/2010 KT CORRECTIONAL SECURITY OFFICER, ALLEN S 786.2 Cough 05/04/2010 KT CORRECTIONAL SECURITY OFFICER, ALLEN S 465.9 Upper Respiratory Infection 05/04/2010 KT CORRECTIONAL SECURITY OFFICER, ALLEN S 786.2 Cough 05/04/2010 KT CORRECTIONAL SECURITY OFFICER, ALLEN S 465.9 Upper Respiratory Infection 05/04/2010 KT CORRECTIONAL SECURITY OFFICER, ALLEN S 786.2 Cough 05/04/2010 KT CORRECTIONAL SECURITY OFFICER, ALLEN S 465.9 Upper Respiratory Infection 05/04/2010 KT CORRECTIONAL SECURITY OFFICER, ALLEN S 786.2 Cough 05/04/2010 KT CORRECTIONAL SECURITY OFFICER, ALLEN S 465.9 Upper Respiratory Infection 05/04/2010 KT CORRECTIONAL SECURITY OFFICER, ALLEN S 786.2 Cough 05/04/2010 KT CORRECTIONAL SECURITY OFFICER, ALLEN S 465.9 Upper Respiratory Infection 05/04/2010 KT CORRECTIONAL SECURITY OFFICER, ALLEN S 786.2 Cough 05/04/2010 KT CORRECTIONAL SECURITY OFFICER, ALLEN S 465.9 Upper Respiratory Infection 05/04/2010 KT CORRECTIONAL SECURITY OFFICER, ALLEN S 786.2 Cough 05/04/2010 KT CORRECTIONAL SECURITY OFFICER, ALLEN S 465.9 Upper Respiratory Infection 05/04/2010 KT CORRECTIONAL SECURITY OFFICER, ALLEN S 786.2 Cough 05/04/2010 KT CORRECTIONAL SECURITY OFFICER, ALLEN S 465.9 Upper Respiratory Infection 05/04/2010 KT CORRECTIONAL SECURITY OFFICER, ALLEN S 786.2 Cough 05/12/2010 789.00 Abdominal Pain Unspecified Site 05/12/2010 EDU WILLOUGHBY DO K 789.00 Abdominal Pain Unspecified Site 05/12/2010 EVERETTEMURIEL MARTINS DO 789.00 Abdominal Pain Unspecified Site 05/12/2010 789.00 Abdominal Pain Unspecified Site 05/12/2010 789.00 Abdominal Pain Unspecified Site 05/12/2010 789.00 Abdominal Pain Unspecified Site 05/12/2010 789.00 Abdominal Pain Unspecified Site 05/12/2010 789.00 Abdominal Pain Unspecified Site 05/12/2010 KT CORRECTIONAL SECURITY OFFICER, ALLEN S 789.00 Abdominal Pain Unspecified Site 05/12/2010 ESTELLA WILLOUGHBY DOA K 789.00 Abdominal Pain Unspecified Site 05/12/2010 AMRIT ENGLE, MAYRA A 789.00 Abdominal Pain Unspecified Site 05/12/2010 [place] ENGLE JORDAN JOYNER 789.00 Abdominal Pain Unspecified Site 05/12/2010 KT [employer] OFFICER, ALLEN S 789.00 Abdominal Pain Unspecified Site 05/12/2010 789.00 Abdominal Pain Unspecified Site 05/12/2010 ALY BANKS APRN R 789.00 Abdominal Pain Unspecified Site 05/12/2010 KT [employer] OFFICER, ALLEN S 789.00 Abdominal Pain Unspecified Site 05/12/2010 KT [employer] SEC[employer]ITY OFFICER, ALLEN S 789.00 Abdominal Pain Unspecified Site 05/12/2010 KT [employer] SEC[employer]ITY OFFICER, ALLEN S 789.00 Abdominal Pain Unspecified Site 05/12/2010 KT [employer] SEC[employer]ITY OFFICER, ALLEN S 789.00 Abdominal Pain Unspecified Site 05/12/2010 KT [employer] SEC[employer]ITY OFFICER, ALLEN S 789.00 Abdominal Pain Unspecified Site 05/12/2010 KT [employer]ITY OFFICER, ALLEN S 789.00 Abdominal Pain Unspecified Site 05/12/2010 KT [employer]ITY OFFICER, ALLEN S 789.00 Abdominal Pain Unspecified Site 05/12/2010 KT [employer] SEC[employer]ITY OFFICER, ALLEN S 789.00 Abdominal Pain Unspecified Site 05/12/2010 KT [employer] OFFICER, ALLEN S 789.00 Abdominal Pain Unspecified Site 06/14/2010 714.0 Arthritis, Rheumatoid 06/14/2010 WILLOUGHBY DO, EDU K 714.0 Arthritis, Rheumatoid 06/14/2010 MURIEL POST DO 714.0 Arthritis, Rheumatoid 06/14/2010 714.0 Arthritis, Rheumatoid 06/14/2010 714.0 Arthritis, Rheumatoid 06/14/2010 714.0 Arthritis, Rheumatoid 06/14/2010 714.0 Arthritis, Rheumatoid 06/14/2010 714.0 Arthritis, Rheumatoid 06/14/2010 KT CORRECTIONAL SECURITY OFFICER, ALLEN S 714.0 Arthritis, Rheumatoid 06/14/2010 [place] DO, EDU K 714.0 Arthritis, Rheumatoid 06/14/2010 AMRIT CORRECTIONAL SECURITY OFFICER, MAYRA A 714.0 Arthritis, Rheumatoid 06/14/2010 [place] CORRECTIONAL SECURITY OFFICER, JORDAN JOYNER 714.0 Arthritis, Rheumatoid 06/14/2010 KT CORRECTIONAL SECURITY OFFICER, ALLEN S 714.0 Arthritis, Rheumatoid 06/14/2010 714.0 Arthritis, Rheumatoid 06/14/2010 JOCELYN CORRECTIONAL SECURITY OFFICER, ALY R 714.0 Arthritis, Rheumatoid 06/14/2010 KT CORRECTIONAL SECURITY OFFICER, ALLEN S 714.0 Arthritis, Rheumatoid 06/14/2010 KT CORRECTIONAL SECURITY OFFICER, ALLEN S 714.0 Arthritis, Rheumatoid 06/14/2010 KT CORRECTIONAL SECURITY OFFICER, ALLEN S 714.0 Arthritis, Rheumatoid 06/14/2010 KT CORRECTIONAL SECURITY OFFICER, ALLEN S 714.0 Arthritis, Rheumatoid 06/14/2010 KT CORRECTIONAL SECURITY OFFICER, ALLEN S 714.0 Arthritis, Rheumatoid 06/14/2010 KT CORRECTIONAL SECURITY OFFICER, ALLEN S 714.0 Arthritis, Rheumatoid 06/14/2010 KT CORRECTIONAL SECURITY OFFICER, ALLEN S 714.0 Arthritis, Rheumatoid 06/14/2010 KT CORRECTIONAL SECURITY OFFICER, ALLEN S 714.0 Arthritis, Rheumatoid 06/14/2010 KT CORRECTIONAL SECURITY OFFICER, ALLEN S 714.0 Arthritis, Rheumatoid 07/06/2010 491.0 Simple Chronic Bronchitis 07/06/2010 724.2 Lumbago 07/06/2010 WILLOUGHBY DO, EDU K 491.0 Simple Chronic Bronchitis 07/06/2010 [place] DO, EDU K 724.2 Lumbago 07/06/2010 MURIEL POST DO F 491.0 Simple Chronic Bronchitis 07/06/2010 MURIEL POST DO F 724.2 Lumbago 07/06/2010 491.0 Simple Chronic Bronchitis 07/06/2010 724.2 Lumbago 07/06/2010 491.0 Simple Chronic Bronchitis 07/06/2010 724.2 Lumbago 07/06/2010 491.0 Simple Chronic Bronchitis 07/06/2010 724.2 Lumbago 07/06/2010 491.0 Simple Chronic Bronchitis 07/06/2010 724.2 Lumbago 07/06/2010 491.0 Simple Chronic Bronchitis 07/06/2010 724.2 Lumbago 07/06/2010 KEYUR MERAZ APRNA S 491.0 Simple Chronic Bronchitis 07/06/2010 KEYUR MERAZ APRNA S 724.2 Lumbago 07/06/2010 CASE RIVERA EDU K 491.0 Simple Chronic Bronchitis 07/06/2010 CASE RIVERA, EDU K 724.2 Lumbago 07/06/2010 ROMEL MARCUS APRNIDI A 491.0 Simple Chronic Bronchitis 07/06/2010 AMRIT ENGLE MAYRA A 724.2 Lumbago 07/06/2010 [place] ENGLE JORDAN AR 491.0 Simple Chronic Bronchitis 07/06/2010 [place] ENGLE JORDAN RHODESH 724.2 Lumbago 07/06/2010 BILLY MERAZ APRNNDA S 491.0 Simple Chronic Bronchitis 07/06/2010 KT ENGLE ALLEN S 724.2 Lumbago 07/06/2010 491.0 Simple Chronic Bronchitis 07/06/2010 724.2 Lumbago 07/06/2010 JOCELYN ENGLE, ALY R 491.0 Simple Chronic Bronchitis 07/06/2010 JOCELYN ENGLE, ALY R 724.2 Lumbago 07/06/2010 BILLY MERAZ APRNNDA S 491.0 Simple Chronic Bronchitis 07/06/2010 KT CORRECTIONAL SECURITY OFFICER, ALLEN S 724.2 Lumbago 07/06/2010 KT CORRECTIONAL SECURITY OFFICER, ALLEN S 491.0 Simple Chronic Bronchitis 07/06/2010 KT CORRECTIONAL SECURITY OFFICER, ALLEN S 724.2 Lumbago 07/06/2010 KT CORRECTIONAL SECURITY OFFICER, ALLEN S 491.0 Simple Chronic Bronchitis 07/06/2010 KT CORRECTIONAL SECURITY OFFICER, ALLEN S 724.2 Lumbago 07/06/2010 KT CORRECTIONAL SECURITY OFFICER, ALLEN S 491.0 Simple Chronic Bronchitis 07/06/2010 KT CORRECTIONAL SECURITY OFFICER, ALLEN S 724.2 Lumbago 07/06/2010 KT CORRECTIONAL SECURITY OFFICER, ALLEN S 491.0 Simple Chronic Bronchitis 07/06/2010 KT CORRECTIONAL SECURITY OFFICER, ALLEN S 724.2 Lumbago 07/06/2010 KT CORRECTIONAL SECURITY OFFICER, ALLEN S 491.0 Simple Chronic Bronchitis 07/06/2010 KT CORRECTIONAL SECURITY OFFICER, ALLEN S 724.2 Lumbago 07/06/2010 KT CORRECTIONAL SECURITY OFFICER, ALLEN S 491.0 Simple Chronic Bronchitis 07/06/2010 KT CORRECTIONAL SECURITY OFFICER, ALLEN S 724.2 Lumbago 07/06/2010 KT CORRECTIONAL SECURITY OFFICER, ALLEN S 491.0 Simple Chronic Bronchitis 07/06/2010 KT CORRECTIONAL SECURITY OFFICER, ALLEN S 724.2 Lumbago 07/06/2010 KT CORRECTIONAL SECURITY OFFICER, ALLEN S 491.0 Simple Chronic Bronchitis 07/06/2010 KT CORRECTIONAL SECURITY OFFICER, ALLEN S 724.2 Lumbago 08/01/2010 300.00 Anxiety Unspec 08/01/2010 EDU WILLOUGHBY DO 300.00 Anxiety Unspec 08/01/2010 MURIEL POST DO 300.00 Anxiety Unspec 08/01/2010 300.00 Anxiety Unspec 08/01/2010 300.00 Anxiety Unspec 08/01/2010 300.00 Anxiety Unspec 08/01/2010 300.00 Anxiety Unspec 08/01/2010 300.00 Anxiety Unspec 08/01/2010 KEYUR MERAZ APRNA S 300.00 Anxiety Unspec 08/01/2010 EDU WILLOUGHBY DO 300.00 Anxiety Unspec 08/01/2010 MAYRA MARCUS APRN A 300.00 Anxiety Unspec 08/01/2010 [place] CORRECTIONAL SECURITY OFFICER, JORDAN JOYNER 300.00 Anxiety Unspec 08/01/2010 KT CORRECTIONAL SECURITY OFFICER, ALLEN S 300.00 Anxiety Unspec 08/01/2010 300.00 Anxiety Unspec 08/01/2010 JOCELYN CORRECTIONAL SECURITY OFFICER, ALY R 300.00 Anxiety Unspec 08/01/2010 KT CORRECTIONAL SECURITY OFFICER, ALLEN S 300.00 Anxiety Unspec 08/01/2010 KT CORRECTIONAL SECURITY OFFICER, ALLEN S 300.00 Anxiety Unspec 08/01/2010 KT CORRECTIONAL SECURITY OFFICER, ALLEN S 300.00 Anxiety Unspec 08/01/2010 KT CORRECTIONAL SECURITY OFFICER, ALLEN S 300.00 Anxiety Unspec 08/01/2010 KT CORRECTIONAL SECURITY OFFICER, ALLEN S 300.00 Anxiety Unspec 08/01/2010 KT CORRECTIONAL SECURITY OFFICER, ALLEN S 300.00 Anxiety Unspec 08/01/2010 KT CORRECTIONAL SECURITY OFFICER, ALLEN S 300.00 Anxiety Unspec 08/01/2010 KT CORRECTIONAL SECURITY OFFICER, ALLEN S 300.00 Anxiety Unspec 08/01/2010 KT CORRECTIONAL SECURITY OFFICER, ALLEN S 300.00 Anxiety Unspec 09/24/2010 719.46 Pain In Joint Involving Lower Leg 09/24/2010 780.79 Fatigue 09/24/2010 784.7 Epistaxis 09/24/2010 796.2 Elevated Blood Pressure Reading Without Diagnosis Of Hypertension 09/24/2010 V18.0 Fam Hx Diabetes Mellitus 09/24/2010 CASE RIVERA EDU K 719.46 Pain In Joint Involving Lower Leg 09/24/2010 CASE RIVERA EDU K 780.79 Fatigue 09/24/2010 CASE RIVERA EDU K 784.7 Epistaxis 09/24/2010 WILLOUGHBY , EDU K 796.2 Elevated Blood Pressure Reading Without Diagnosis Of Hypertension 09/24/2010 CASE RIVERA EDU K V18.0 Fam Hx Diabetes Mellitus 09/24/2010 MURIEL POST DO 719.46 Pain In Joint Involving Lower Leg 09/24/2010 MURIEL POST DO 780.79 Fatigue 09/24/2010 MURIEL POST DO 784.7 Epistaxis 09/24/2010 MURIEL POST DO 796.2 Elevated Blood Pressure Reading Without Diagnosis Of Hypertension 09/24/2010 MURIEL POST DO V18.0 Fam Hx Diabetes Mellitus 09/24/2010 719.46 Pain In Joint Involving Lower Leg 09/24/2010 780.79 Fatigue 09/24/2010 784.7 Epistaxis 09/24/2010 796.2 Elevated Blood Pressure Reading Without Diagnosis Of Hypertension 09/24/2010 V18.0 Fam Hx Diabetes Mellitus 09/24/2010 719.46 Pain In Joint Involving Lower Leg 09/24/2010 780.79 Fatigue 09/24/2010 784.7 Epistaxis 09/24/2010 796.2 Elevated Blood Pressure Reading Without Diagnosis Of Hypertension 09/24/2010 V18.0 Fam Hx Diabetes Mellitus 09/24/2010 719.46 Pain In Joint Involving Lower Leg 09/24/2010 780.79 Fatigue 09/24/2010 784.7 Epistaxis 09/24/2010 796.2 Elevated Blood Pressure Reading Without Diagnosis Of Hypertension 09/24/2010 V18.0 Fam Hx Diabetes Mellitus 09/24/2010 719.46 Pain In Joint Involving Lower Leg 09/24/2010 780.79 Fatigue 09/24/2010 784.7 Epistaxis 09/24/2010 796.2 Elevated Blood Pressure Reading Without Diagnosis Of Hypertension 09/24/2010 V18.0 Fam Hx Diabetes Mellitus 09/24/2010 719.46 Pain In Joint Involving Lower Leg 09/24/2010 780.79 Fatigue 09/24/2010 784.7 Epistaxis 09/24/2010 796.2 Elevated Blood Pressure Reading Without Diagnosis Of Hypertension 09/24/2010 V18.0 Fam Hx Diabetes Mellitus 09/24/2010 BILLY MERAZ APRNNDA S 719.46 Pain In Joint Involving Lower Leg 09/24/2010 BILLY MERAZ APRNNDA S 780.79 Fatigue 09/24/2010 KT ENGLE, ALLEN S 784.7 Epistaxis 09/24/2010 KT ENGLE ALLEN S 796.2 Elevated Blood Pressure Reading Without Diagnosis Of Hypertension 09/24/2010 KT ENGLE ALLEN S V18.0 Fam Hx Diabetes Mellitus 09/24/2010 EDU WILLOUGHBY DO K 719.46 Pain In Joint Involving Lower Leg 09/24/2010 EDU [place] DO K 780.79 Fatigue 09/24/2010 WILL[place] DO, EDU K 784.7 Epistaxis 09/24/2010 ESTELLA WILLOUGHBY DOA K 796.2 Elevated Blood Pressure Reading Without Diagnosis Of Hypertension 09/24/2010 EDU [place]BY DO K V18.0 Fam Hx Diabetes Mellitus 09/24/2010 AMRIT ENGLE, MAYRA A 719.46 Pain In Joint Involving Lower Leg 09/24/2010 AMRIT CORRECTIONAL SECURITY OFFICER, MAYRA A 780.79 Fatigue 09/24/2010 AMRIT MILESN, MAYRA A 784.7 Epistaxis 09/24/2010 AMRIT MILESN, MAYRA A 796.2 Elevated Blood Pressure Reading Without Diagnosis Of Hypertension 09/24/2010 AMRIT ENGLE, MAYRA A V18.0 Fam Hx Diabetes Mellitus 09/24/2010 JORDAN PARIS APRN 719.46 Pain In Joint Involving Lower Leg 09/24/2010 JORDAN PAR[place] APRN 780.79 Fatigue 09/24/2010 JORDAN PAR[place] APRN 784.7 Epistaxis 09/24/2010 JORDAN PAR[place] APRN 796.2 Elevated Blood Pressure Reading Without Diagnosis Of Hypertension 09/24/2010 JORDAN PARIS APRN V18.0 Fam Hx Diabetes Mellitus 09/24/2010 ALLEN MERAZ APRN S 719.46 Pain In Joint Involving Lower Leg 09/24/2010 ALLEN MERAZ APRN S 780.79 Fatigue 09/24/2010 ALLEN MERAZ APRN S 784.7 Epistaxis 09/24/2010 ALLEN MERAZ APRN S 796.2 Elevated Blood Pressure Reading Without Diagnosis Of Hypertension 09/24/2010 KEYUR MERAZ APRNA S V18.0 Fam Hx Diabetes Mellitus 09/24/2010 719.46 Pain In Joint Involving Lower Leg 09/24/2010 780.79 Fatigue 09/24/2010 784.7 Epistaxis 09/24/2010 796.2 Elevated Blood Pressure Reading Without Diagnosis Of Hypertension 09/24/2010 V18.0 Fam Hx Diabetes Mellitus 09/24/2010 ALY BANKS APRN R 719.46 Pain In Joint Involving Lower Leg 09/24/2010 ALY BANKS APRN R 780.79 Fatigue 09/24/2010 JOCELYN CORRECTIONAL SECURITY OFFICER, ALY R 784.7 Epistaxis 09/24/2010 JOCELYN CORRECTIONAL SECURITY OFFICER, ALY R 796.2 Elevated Blood Pressure Reading Without Diagnosis Of Hypertension 09/24/2010 JOCELYN CORRECTIONAL SECURITY OFFICER, ALY R V18.0 Fam Hx Diabetes Mellitus 09/24/2010 KT CORRECTIONAL SECURITY OFFICER, ALLEN S 719.46 Pain In Joint Involving Lower Leg 09/24/2010 KT CORRECTIONAL SECURITY OFFICER, ALLEN S 780.79 Fatigue 09/24/2010 KT CORRECTIONAL SECURITY OFFICER, ALLEN S 784.7 Epistaxis 09/24/2010 KT CORRECTIONAL SECURITY OFFICER, ALLEN S 796.2 Elevated Blood Pressure Reading Without Diagnosis Of Hypertension 09/24/2010 KT CORRECTIONAL SECURITY OFFICER, ALLEN S V18.0 Fam Hx Diabetes Mellitus 09/24/2010 KT CORRECTIONAL SECURITY OFFICER, ALLEN S 719.46 Pain In Joint Involving Lower Leg 09/24/2010 KT CORRECTIONAL SECURITY OFFICER, ALLEN S 780.79 Fatigue 09/24/2010 KT MILESN, ALLEN S 784.7 Epistaxis 09/24/2010 KT CORRECTIONAL SECURITY OFFICER, ALLEN S 796.2 Elevated Blood Pressure Reading Without Diagnosis Of Hypertension 09/24/2010 KT CORRECTIONAL SECURITY OFFICER, ALLEN S V18.0 Fam Hx Diabetes Mellitus 09/24/2010 KT CORRECTIONAL SECURITY OFFICER, ALLEN S 719.46 Pain In Joint Involving Lower Leg 09/24/2010 KT CORRECTIONAL SECURITY OFFICER, ALLEN S 780.79 Fatigue 09/24/2010 KT CORRECTIONAL SECURITY OFFICER, ALLEN S 784.7 Epistaxis 09/24/2010 KT MILESN, ALLEN S 796.2 Elevated Blood Pressure Reading Without Diagnosis Of Hypertension 09/24/2010 KT CORRECTIONAL SECURITY OFFICER, ALLEN S V18.0 Fam Hx Diabetes Mellitus 09/24/2010 KT CORRECTIONAL SECURITY OFFICER, ALLEN S 719.46 Pain In Joint Involving Lower Leg 09/24/2010 KT CORRECTIONAL SECURITY OFFICER, ALLEN S 780.79 Fatigue 09/24/2010 KT CORRECTIONAL SECURITY OFFICER, ALLEN S 784.7 Epistaxis 09/24/2010 KT CORRECTIONAL SECURITY OFFICER, ALLEN S 796.2 Elevated Blood Pressure Reading Without Diagnosis Of Hypertension 09/24/2010 KT CORRECTIONAL SECURITY OFFICER, ALLEN S V18.0 Fam Hx Diabetes Mellitus 09/24/2010 KT CORRECTIONAL SECURITY OFFICER, ALLEN S 719.46 Pain In Joint Involving Lower Leg 09/24/2010 KT CORRECTIONAL SECURITY OFFICER, ALLEN S 780.79 Fatigue 09/24/2010 KT CORRECTIONAL SECURITY OFFICER, ALLEN S 784.7 Epistaxis 09/24/2010 KT CORRECTIONAL SECURITY OFFICER, ALLEN S 796.2 Elevated Blood Pressure Reading Without Diagnosis Of Hypertension 09/24/2010 KT CORRECTIONAL SECURITY OFFICER, ALLEN S V18.0 Fam Hx Diabetes Mellitus 09/24/2010 KT CORRECTIONAL SECURITY OFFICER, ALLEN S 719.46 Pain In Joint Involving Lower Leg 09/24/2010 KT CORRECTIONAL SECURITY OFFICER, ALLEN S 780.79 Fatigue 09/24/2010 KT CORRECTIONAL SECURITY OFFICER, ALLEN S 784.7 Epistaxis 09/24/2010 KT CORRECTIONAL SECURITY OFFICER, ALLEN S 796.2 Elevated Blood Pressure Reading Without Diagnosis Of Hypertension 09/24/2010 KT CORRECTIONAL SECURITY OFFICER, ALLEN S V18.0 Fam Hx Diabetes Mellitus 09/24/2010 KT CORRECTIONAL SECURITY OFFICER, ALLEN S 719.46 Pain In Joint Involving Lower Leg 09/24/2010 KT CORRECTIONAL SECURITY OFFICER, ALLEN S 780.79 Fatigue 09/24/2010 KT CORRECTIONAL SECURITY OFFICER, ALLEN S 784.7 Epistaxis 09/24/2010 KT CORRECTIONAL SECURITY OFFICER, ALLEN S 796.2 Elevated Blood Pressure Reading Without Diagnosis Of Hypertension 09/24/2010 KT CORRECTIONAL SECURITY OFFICER, ALLEN S V18.0 Fam Hx Diabetes Mellitus 09/24/2010 KT CORRECTIONAL SECURITY OFFICER, ALLEN S 719.46 Pain In Joint Involving Lower Leg 09/24/2010 KT CORRECTIONAL SECURITY OFFICER, ALLEN S 780.79 Fatigue 09/24/2010 KT CORRECTIONAL SECURITY OFFICER, ALLEN S 784.7 Epistaxis 09/24/2010 KT CORRECTIONAL SECURITY OFFICER, ALLEN S 796.2 Elevated Blood Pressure Reading Without Diagnosis Of Hypertension 09/24/2010 KT CORRECTIONAL SECURITY OFFICER, ALLEN S V18.0 Fam Hx Diabetes Mellitus 09/24/2010 KT CORRECTIONAL SECURITY OFFICER, ALLEN S 719.46 Pain In Joint Involving Lower Leg 09/24/2010 KT CORRECTIONAL SECURITY OFFICER, ALLEN S 780.79 Fatigue 09/24/2010 KT CORRECTIONAL SECURITY OFFICER, ALLEN S 784.7 Epistaxis 09/24/2010 KT CORRECTIONAL SECURITY OFFICER, ALLEN S 796.2 Elevated Blood Pressure Reading Without Diagnosis Of Hypertension 09/24/2010 KT CORRECTIONAL SECURITY OFFICER, ALLEN S V18.0 Fam Hx Diabetes Mellitus 09/29/2010 786.07 Wheezing 09/29/2010 EDU WILLOUGHBY DO 786.07 Wheezing 09/29/2010 MURIEL POST DO 786.07 Wheezing 09/29/2010 786.07 Wheezing 09/29/2010 786.07 Wheezing 09/29/2010 786.07 Wheezing 09/29/2010 786.07 Wheezing 09/29/2010 786.07 Wheezing 09/29/2010 KT CORRECTIONAL SECURITY OFFICER, ALLEN S 786.07 Wheezing 09/29/2010 EDU WILLOUGHBY DO 786.07 Wheezing 09/29/2010 MAYRA MARCUS APRN A 786.07 Wheezing 09/29/2010 [place] CORRECTIONAL SECURITY OFFICERJORDAN Rosario 786.07 Wheezing 09/29/2010 KT CORRECTIONAL SECURITY OFFICER, ALLEN S 786.07 Wheezing 09/29/2010 786.07 Wheezing 09/29/2010 JOCELYN CORRECTIONAL SECURITY OFFICERALY R 786.07 Wheezing 09/29/2010 KT CORRECTIONAL SECURITY OFFICER, ALLEN S 786.07 Wheezing 09/29/2010 KT CORRECTIONAL SECURITY OFFICER, ALLEN S 786.07 Wheezing 09/29/2010 KT CORRECTIONAL SECURITY OFFICER, ALLEN S 786.07 Wheezing 09/29/2010 KT CORRECTIONAL SECURITY OFFICER, ALLEN S 786.07 Wheezing 09/29/2010 KT CORRECTIONAL SECURITY OFFICER, ALLEN S 786.07 Wheezing 09/29/2010 KT CORRECTIONAL SECURITY OFFICER, ALLEN S 786.07 Wheezing 09/29/2010 KT CORRECTIONAL SECURITY OFFICER, ALLEN S 786.07 Wheezing 09/29/2010 KT CORRECTIONAL SECURITY OFFICER, ALLEN S 786.07 Wheezing 09/29/2010 KT CORRECTIONAL SECURITY OFFICER, ALLEN S 786.07 Wheezing 10/08/2010 466.0 Bronchitis, Acute 10/08/2010 EDU WILLOUGHBY DO 466.0 Bronchitis, Acute 10/08/2010 MURIEL POST DO 466.0 Bronchitis, Acute 10/08/2010 466.0 Bronchitis, Acute 10/08/2010 466.0 Bronchitis, Acute 10/08/2010 466.0 Bronchitis, Acute 10/08/2010 466.0 Bronchitis, Acute 10/08/2010 466.0 Bronchitis, Acute 10/08/2010 KT CORRECTIONAL SECURITY OFFICER, ALLEN S 466.0 Bronchitis, Acute 10/08/2010 EDU WILLOUGHBY DO 466.0 Bronchitis, Acute 10/08/2010 AMRIT CORRECTIONAL SECURITY OFFICER, MAYRA A 466.0 Bronchitis, Acute 10/08/2010 [place] CORRECTIONAL SECURITY OFFICER, JORDAN JOYNER 466.0 Bronchitis, Acute 10/08/2010 KT CORRECTIONAL SECURITY OFFICER, ALLEN S 466.0 Bronchitis, Acute 10/08/2010 466.0 Bronchitis, Acute 10/08/2010 JOCELYN CORRECTIONAL SECURITY OFFICER, ALY R 466.0 Bronchitis, Acute 10/08/2010 KT CORRECTIONAL SECURITY OFFICER, ALLEN S 466.0 Bronchitis, Acute 10/08/2010 KT CORRECTIONAL SECURITY OFFICER, ALLEN S 466.0 Bronchitis, Acute 10/08/2010 KT CORRECTIONAL SECURITY OFFICER, ALLEN S 466.0 Bronchitis, Acute 10/08/2010 KT CORRECTIONAL SECURITY OFFICER, ALLEN S 466.0 Bronchitis, Acute 10/08/2010 KT CORRECTIONAL SECURITY OFFICER, ALLEN S 466.0 Bronchitis, Acute 10/08/2010 KT CORRECTIONAL SECURITY OFFICER, ALLEN S 466.0 Bronchitis, Acute 10/08/2010 KT CORRECTIONAL SECURITY OFFICER, ALLEN S 466.0 Bronchitis, Acute 10/08/2010 KT CORRECTIONAL SECURITY OFFICER, ALLEN S 466.0 Bronchitis, Acute 10/08/2010 KT CORRECTIONAL SECURITY OFFICER, ALLEN S 466.0 Bronchitis, Acute 10/18/2010 836.0 Tear Of Medial Cartilage Or Meniscus Of Knee Current 10/18/2010 EDU WILLOUGHBY DO 836.0 Tear Of Medial Cartilage Or Meniscus Of Knee Current 10/18/2010 MURIEL POST DO 836.0 Tear Of Medial Cartilage Or Meniscus Of Knee Current 10/18/2010 836.0 Tear Of Medial Cartilage Or Meniscus Of Knee Current 10/18/2010 836.0 Tear Of Medial Cartilage Or Meniscus Of Knee Current 10/18/2010 836.0 Tear Of Medial Cartilage Or Meniscus Of Knee Current 10/18/2010 836.0 Tear Of Medial Cartilage Or Meniscus Of Knee Current 10/18/2010 836.0 Tear Of Medial Cartilage Or Meniscus Of Knee Current 10/18/2010 KT CORRECTIONAL SECURITY OFFICER, ALLEN S 836.0 Tear Of Medial Cartilage Or Meniscus Of Knee Current 10/18/2010 EDU WILLOUGHBY DO 836.0 Tear Of Medial Cartilage Or Meniscus Of Knee Current 10/18/2010 AMRIT CORRECTIONAL SECURITY OFFICER, MAYRA A 836.0 Tear Of Medial Cartilage Or Meniscus Of Knee Current 10/18/2010 [place] CORRECTIONAL SECURITY OFFICER JORDAN JOYNER 836.0 Tear Of Medial Cartilage Or Meniscus Of Knee Current 10/18/2010 KT CORRECTIONAL SECURITY OFFICER, ALLEN S 836.0 Tear Of Medial Cartilage Or Meniscus Of Knee Current 10/18/2010 836.0 Tear Of Medial Cartilage Or Meniscus Of Knee Current 10/18/2010 ALY BANKS APRN 836.0 Tear Of Medial Cartilage Or Meniscus Of Knee Current 10/18/2010 KT CORRECTIONAL SECURITY OFFICER, ALLEN S 836.0 Tear Of Medial Cartilage Or Meniscus Of Knee Current 10/18/2010 KT CORRECTIONAL SECURITY OFFICER, ALLEN S 836.0 Tear Of Medial Cartilage Or Meniscus Of Knee Current 10/18/2010 KT CORRECTIONAL SECURITY OFFICER, ALLEN S 836.0 Tear Of Medial Cartilage Or Meniscus Of Knee Current 10/18/2010 KT CORRECTIONAL SECURITY OFFICER, ALLEN S 836.0 Tear Of Medial Cartilage Or Meniscus Of Knee Current 10/18/2010 KT CORRECTIONAL SECURITY OFFICER, ALLEN S 836.0 Tear Of Medial Cartilage Or Meniscus Of Knee Current 10/18/2010 KT CORRECTIONAL SECURITY OFFICER, ALLEN S 836.0 Tear Of Medial Cartilage Or Meniscus Of Knee Current 10/18/2010 KT CORRECTIONAL SECURITY OFFICER, ALLEN S 836.0 Tear Of Medial Cartilage Or Meniscus Of Knee Current 10/18/2010 KT CORRECTIONAL SECURITY OFFICER, ALLEN S 836.0 Tear Of Medial Cartilage Or Meniscus Of Knee Current 10/18/2010 KT CORRECTIONAL SECURITY OFFICER, ALLEN S 836.0 Tear Of Medial Cartilage Or Meniscus Of Knee Current 11/12/2010 401.9 HYPERTENSION, UNSPECIFIED ESSENTIAL 11/12/2010 627.9 Menopausal And Postmenopausal Disorder Unspecified 11/12/2010 [place] DO, EDU K 401.9 HYPERTENSION, UNSPECIFIED ESSENTIAL 11/12/2010 CASE RIVERA, EDU K 627.9 Menopausal And Postmenopausal Disorder Unspecified 11/12/2010 MURIEL POST DO F 401.9 HYPERTENSION, UNSPECIFIED ESSENTIAL 11/12/2010 MURIEL POST DO 627.9 Menopausal And Postmenopausal Disorder Unspecified 11/12/2010 401.9 HYPERTENSION, UNSPECIFIED ESSENTIAL 11/12/2010 627.9 Menopausal And Postmenopausal Disorder Unspecified 11/12/2010 401.9 HYPERTENSION, UNSPECIFIED ESSENTIAL 11/12/2010 627.9 Menopausal And Postmenopausal Disorder Unspecified 11/12/2010 401.9 HYPERTENSION, UNSPECIFIED ESSENTIAL 11/12/2010 627.9 Menopausal And Postmenopausal Disorder Unspecified 11/12/2010 401.9 HYPERTENSION, UNSPECIFIED ESSENTIAL 11/12/2010 627.9 Menopausal And Postmenopausal Disorder Unspecified 11/12/2010 401.9 HYPERTENSION, UNSPECIFIED ESSENTIAL 11/12/2010 627.9 Menopausal And Postmenopausal Disorder Unspecified 11/12/2010 KT CORRECTIONAL SECURITY OFFICER, ALLEN S 401.9 HYPERTENSION, UNSPECIFIED ESSENTIAL 11/12/2010 KT CORRECTIONAL SECURITY OFFICER, ALLEN S 627.9 Menopausal And Postmenopausal Disorder Unspecified 11/12/2010 CASE DOESTELLAA K 401.9 HYPERTENSION, UNSPECIFIED ESSENTIAL 11/12/2010 CASE DOESTELLAA K 627.9 Menopausal And Postmenopausal Disorder Unspecified 11/12/2010 AMRIT CORRECTIONAL SECURITY OFFICER, MAYRA A 401.9 HYPERTENSION, UNSPECIFIED ESSENTIAL 11/12/2010 AMRIT CORRECTIONAL SECURITY OFFICER, MARYA A 627.9 Menopausal And Postmenopausal Disorder Unspecified 11/12/2010 [place] CORRECTIONAL SECURITY OFFICER JORDAN AR 401.9 HYPERTENSION, UNSPECIFIED ESSENTIAL 11/12/2010 [place] CORRECTIONAL SECURITY OFFICER, JORDAN RHODESH 627.9 Menopausal And Postmenopausal Disorder Unspecified 11/12/2010 KT CORRECTIONAL SECURITY OFFICER, ALLEN S 401.9 HYPERTENSION, UNSPECIFIED ESSENTIAL 11/12/2010 KT CORRECTIONAL SECURITY OFFICER, ALLEN S 627.9 Menopausal And Postmenopausal Disorder Unspecified 11/12/2010 401.9 HYPERTENSION, UNSPECIFIED ESSENTIAL 11/12/2010 627.9 Menopausal And Postmenopausal Disorder Unspecified 11/12/2010 JOCELYN CORRECTIONAL SECURITY OFFICER, ALY R 401.9 HYPERTENSION, UNSPECIFIED ESSENTIAL 11/12/2010 JOCELYN CORRECTIONAL SECURITY OFFICER, ALY R 627.9 Menopausal And Postmenopausal Disorder Unspecified 11/12/2010 KT CORRECTIONAL SECURITY OFFICER, ALLEN S 401.9 HYPERTENSION, UNSPECIFIED ESSENTIAL 11/12/2010 KT CORRECTIONAL SECURITY OFFICER, ALLEN S 627.9 Menopausal And Postmenopausal Disorder Unspecified 11/12/2010 KT CORRECTIONAL SECURITY OFFICER, ALLEN S 401.9 HYPERTENSION, UNSPECIFIED ESSENTIAL 11/12/2010 KT CORRECTIONAL SECURITY OFFICER, ALLEN S 627.9 Menopausal And Postmenopausal Disorder Unspecified 11/12/2010 KT CORRECTIONAL SECURITY OFFICER, ALLEN S 401.9 HYPERTENSION, UNSPECIFIED ESSENTIAL 11/12/2010 KT CORRECTIONAL SECURITY OFFICER, ALLEN S 627.9 Menopausal And Postmenopausal Disorder Unspecified 11/12/2010 KT CORRECTIONAL SECURITY OFFICER, ALLEN S 401.9 HYPERTENSION, UNSPECIFIED ESSENTIAL 11/12/2010 KT CORRECTIONAL SECURITY OFFICER, ALLEN S 627.9 Menopausal And Postmenopausal Disorder Unspecified 11/12/2010 KT CORRECTIONAL SECURITY OFFICER, ALLEN S 401.9 HYPERTENSION, UNSPECIFIED ESSENTIAL 11/12/2010 KT CORRECTIONAL SECURITY OFFICER, ALLEN S 627.9 Menopausal And Postmenopausal Disorder Unspecified 11/12/2010 KT CORRECTIONAL SECURITY OFFICER, ALLEN S 401.9 HYPERTENSION, UNSPECIFIED ESSENTIAL 11/12/2010 KT CORRECTIONAL SECURITY OFFICER, ALLEN S 627.9 Menopausal And Postmenopausal Disorder Unspecified 11/12/2010 KT CORRECTIONAL SECURITY OFFICER, ALLEN S 401.9 HYPERTENSION, UNSPECIFIED ESSENTIAL 11/12/2010 KT CORRECTIONAL SECURITY OFFICER, ALLEN S 627.9 Menopausal And Postmenopausal Disorder Unspecified 11/12/2010 KT CORRECTIONAL SECURITY OFFICER, ALLEN S 401.9 HYPERTENSION, UNSPECIFIED ESSENTIAL 11/12/2010 KT CORRECTIONAL SECURITY OFFICER, ALLEN S 627.9 Menopausal And Postmenopausal Disorder Unspecified 11/12/2010 KT CORRECTIONAL SECURITY OFFICER, ALLEN S 401.9 HYPERTENSION, UNSPECIFIED ESSENTIAL 11/12/2010 KT CORRECTIONAL SECURITY OFFICER, ALLEN S 627.9 Menopausal And Postmenopausal Disorder Unspecified 12/20/2010 461.9 Sinusitis Acute 12/20/2010 EDU WILLOUGHBY DO 461.9 Sinusitis Acute 12/20/2010 MURIEL POST DO 461.9 Sinusitis Acute 12/20/2010 461.9 Sinusitis Acute 12/20/2010 461.9 Sinusitis Acute 12/20/2010 461.9 Sinusitis Acute 12/20/2010 461.9 Sinusitis Acute 12/20/2010 461.9 Sinusitis Acute 12/20/2010 KT CORRECTIONAL SECURITY OFFICER, ALLEN S 461.9 Sinusitis Acute 12/20/2010 EDU WILLOUGHBY DO 461.9 Sinusitis Acute 12/20/2010 AMRIT CORRECTIONAL SECURITY OFFICER, MAYRA A 461.9 Sinusitis Acute 12/20/2010 [place] CORRECTIONAL SECURITY OFFICER, JORDAN JOYNER 461.9 Sinusitis Acute 12/20/2010 KT CORRECTIONAL SECURITY OFFICER, ALLEN S 461.9 Sinusitis Acute 12/20/2010 461.9 Sinusitis Acute 12/20/2010 JOCELYN CORRECTIONAL SECURITY OFFICER, ALY R 461.9 Sinusitis Acute 12/20/2010 KT CORRECTIONAL SECURITY OFFICER, ALLEN S 461.9 Sinusitis Acute 12/20/2010 KT CORRECTIONAL SECURITY OFFICER, ALLEN S 461.9 Sinusitis Acute 12/20/2010 KT CORRECTIONAL SECURITY OFFICER, ALLEN S 461.9 Sinusitis Acute 12/20/2010 KT CORRECTIONAL SECURITY OFFICER, ALLEN S 461.9 Sinusitis Acute 12/20/2010 KT CORRECTIONAL SECURITY OFFICER, ALLEN S 461.9 Sinusitis Acute 12/20/2010 KT CORRECTIONAL SECURITY OFFICER, ALLEN S 461.9 Sinusitis Acute 12/20/2010 KT CORRECTIONAL SECURITY OFFICER, ALLEN S 461.9 Sinusitis Acute 12/20/2010 KT CORRECTIONAL SECURITY OFFICER, ALLEN S 461.9 Sinusitis Acute 12/20/2010 KT CORRECTIONAL SECURITY OFFICER, ALLEN S 461.9 Sinusitis Acute 12/29/2010 112.1 Candidiasis Vaginal 12/29/2010 719.41 Pain In Joint Involving Shoulder Region 12/29/2010 799.02 Hypoxemia 12/29/2010 EDU WILLOUGHBY DO 112.1 Candidiasis Vaginal 12/29/2010 EDU WILLOUGHBY DO 719.41 Pain In Joint Involving Shoulder Region 12/29/2010 EDU WILLOUGHBY DO 799.02 Hypoxemia 12/29/2010 MURIEL POST DO 112.1 Candidiasis Vaginal 12/29/2010 WERDER DO, MURIEL F 719.41 Pain In Joint Involving Shoulder Region 12/29/2010 MURIEL POST DO 799.02 Hypoxemia 12/29/2010 112.1 Candidiasis Vaginal 12/29/2010 719.41 Pain In Joint Involving Shoulder Region 12/29/2010 799.02 Hypoxemia 12/29/2010 112.1 Candidiasis Vaginal 12/29/2010 719.41 Pain In Joint Involving Shoulder Region 12/29/2010 799.02 Hypoxemia 12/29/2010 112.1 Candidiasis Vaginal 12/29/2010 719.41 Pain In Joint Involving Shoulder Region 12/29/2010 799.02 Hypoxemia 12/29/2010 112.1 Candidiasis Vaginal 12/29/2010 719.41 Pain In Joint Involving Shoulder Region 12/29/2010 799.02 Hypoxemia 12/29/2010 112.1 Candidiasis Vaginal 12/29/2010 719.41 Pain In Joint Involving Shoulder Region 12/29/2010 799.02 Hypoxemia 12/29/2010 ALLEN MERAZ APRN 112.1 Candidiasis Vaginal 12/29/2010 ALLEN MERAZ APRN S 719.41 Pain In Joint Involving Shoulder Region 12/29/2010 ALLEN MERAZ APRN 799.02 Hypoxemia 12/29/2010 WILLOUGHBY EDU RIVERA K 112.1 Candidiasis Vaginal 12/29/2010 EDU WILLOUGHBY DO K 719.41 Pain In Joint Involving Shoulder Region 12/29/2010 EDU WILLOUGHBY DO K 799.02 Hypoxemia 12/29/2010 MAYRA MARCUS APRN A 112.1 Candidiasis Vaginal 12/29/2010 MAYRA MARCUS APRN A 719.41 Pain In Joint Involving Shoulder Region 12/29/2010 MAYRA MARCUS APRN A 799.02 Hypoxemia 12/29/2010 [place] ENGLE JORDAN AR 112.1 Candidiasis Vaginal 12/29/2010 JORDAN PARIS APRN 719.41 Pain In Joint Involving Shoulder Region 12/29/2010 WELL[place] ENGLE JORDAN AR 799.02 Hypoxemia 12/29/2010 ALLEN MERAZ APRN 112.1 Candidiasis Vaginal 12/29/2010 ALLEN MERAZ APRN S 719.41 Pain In Joint Involving Shoulder Region 12/29/2010 ALLEN MERAZ APRN 799.02 Hypoxemia 12/29/2010 112.1 Candidiasis Vaginal 12/29/2010 719.41 Pain In Joint Involving Shoulder Region 12/29/2010 799.02 Hypoxemia 12/29/2010 ALY BANKS APRN R 112.1 Candidiasis Vaginal 12/29/2010 ALY BANKS APRN R 719.41 Pain In Joint Involving Shoulder Region 12/29/2010 ALY BANKS APRN R 799.02 Hypoxemia 12/29/2010 KEYUR MERAZ APRNA S 112.1 Candidiasis Vaginal 12/29/2010 BILLY MERAZ APRNNDA S 719.41 Pain In Joint Involving Shoulder Region 12/29/2010 KEYUR MERAZ APRNA S 799.02 Hypoxemia 12/29/2010 KEYUR MERAZ APRNA S 112.1 Candidiasis Vaginal 12/29/2010 BILLY MERAZ APRNNDA S 719.41 Pain In Joint Involving Shoulder Region 12/29/2010 KEYUR MERAZ APRNA S 799.02 Hypoxemia 12/29/2010 KEYUR MERAZ APRNA S 112.1 Candidiasis Vaginal 12/29/2010 BILLY MERAZ APRNNDA S 719.41 Pain In Joint Involving Shoulder Region 12/29/2010 KEYUR MERAZ APRNA S 799.02 Hypoxemia 12/29/2010 BILLY MERAZ APRNNDA S 112.1 Candidiasis Vaginal 12/29/2010 BILLY MERAZ APRNNDA S 719.41 Pain In Joint Involving Shoulder Region 12/29/2010 BILLY MERAZ APRNNDA S 799.02 Hypoxemia 12/29/2010 BILLY MERAZ APRNNDA S 112.1 Candidiasis Vaginal 12/29/2010 KT ENGLE, ALLEN S 719.41 Pain In Joint Involving Shoulder Region 12/29/2010 BILLY MERAZ APRNNDA S 799.02 Hypoxemia 12/29/2010 BILLY MERAZ APRNNDA S 112.1 Candidiasis Vaginal 12/29/2010 BILLY MERAZ APRNNDA S 719.41 Pain In Joint Involving Shoulder Region 12/29/2010 KEYUR MERAZ APRNA S 799.02 Hypoxemia 12/29/2010 ALLEN MERAZ APRN S 112.1 Candidiasis Vaginal 12/29/2010 KEYUR MERAZ APRNA S 719.41 Pain In Joint Involving Shoulder Region 12/29/2010 ALLEN MERAZ APRN S 799.02 Hypoxemia 12/29/2010 KEYUR MERAZ APRNA S 112.1 Candidiasis Vaginal 12/29/2010 BILLY MERAZ APRNNDA S 719.41 Pain In Joint Involving Shoulder Region 12/29/2010 ALLEN MERAZ APRN S 799.02 Hypoxemia 12/29/2010 ALLEN MERAZ APRN S 112.1 Candidiasis Vaginal 12/29/2010 ALLEN MERAZ APRN S 719.41 Pain In Joint Involving Shoulder Region 12/29/2010 ALLEN MERAZ APRN S 799.02 Hypoxemia 03/02/2011 333.94 RESTLESS LEGS SYNDROME (RLS) 03/02/2011 719.40 Arthraigia Unspec 03/02/2011 EDU WILLOUGHBY DO 333.94 RESTLESS LEGS SYNDROME (RLS) 03/02/2011 EDU WILLOUGHBY DO 719.40 Arthraigia Unspec 03/02/2011 MURIEL POST DO 333.94 RESTLESS LEGS SYNDROME (RLS) 03/02/2011 MURIEL POST DO 719.40 Arthraigia Unspec 03/02/2011 333.94 RESTLESS LEGS SYNDROME (RLS) 03/02/2011 719.40 Arthraigia Unspec 03/02/2011 333.94 RESTLESS LEGS SYNDROME (RLS) 03/02/2011 719.40 Arthraigia Unspec 03/02/2011 333.94 RESTLESS LEGS SYNDROME (RLS) 03/02/2011 719.40 Arthraigia Unspec 03/02/2011 333.94 RESTLESS LEGS SYNDROME (RLS) 03/02/2011 719.40 Arthraigia Unspec 03/02/2011 333.94 RESTLESS LEGS SYNDROME (RLS) 03/02/2011 719.40 Arthraigia Unspec 03/02/2011 ALLEN MERAZ APRN 333.94 RESTLESS LEGS SYNDROME (RLS) 03/02/2011 ALLEN MERAZ APRN S 719.40 Arthraigia Unspec 03/02/2011 WILLOUGHBY DO, EDU K 333.94 RESTLESS LEGS SYNDROME (RLS) 03/02/2011 WILLOUGHBY DO, EDU K 719.40 Arthraigia Unspec 03/02/2011 AMRIT CORRECTIONAL SECURITY OFFICER, MAYRA A 333.94 RESTLESS LEGS SYNDROME (RLS) 03/02/2011 AMRIT ENGLE, MAYRA A 719.40 Arthraigia Unspec 03/02/2011 WELL[place] ENGLE JORDAN JOYNER 333.94 RESTLESS LEGS SYNDROME (RLS) 03/02/2011 [place] ENGLE JORDAN JOYNER 719.40 Arthraigia Unspec 03/02/2011 KT ENGLE, ALLEN S 333.94 RESTLESS LEGS SYNDROME (RLS) 03/02/2011 KT MILESN, ALLEN S 719.40 Arthraigia Unspec 03/02/2011 333.94 RESTLESS LEGS SYNDROME (RLS) 03/02/2011 719.40 Arthraigia Unspec 03/02/2011 JOCELYN ENGLE ALY R 333.94 RESTLESS LEGS SYNDROME (RLS) 03/02/2011 JOCELYN MILESN, ALY R 719.40 Arthraigia Unspec 03/02/2011 KT MILESN, ALLEN S 333.94 RESTLESS LEGS SYNDROME (RLS) 03/02/2011 KT MILESN, ALLEN S 719.40 Arthraigia Unspec 03/02/2011 KT MILESN, ALLEN S 333.94 RESTLESS LEGS SYNDROME (RLS) 03/02/2011 KT MILESN, ALLEN S 719.40 Arthraigia Unspec 03/02/2011 KT MILESN, ALLEN S 333.94 RESTLESS LEGS SYNDROME (RLS) 03/02/2011 KT CORRECTIONAL SECURITY OFFICER, ALLEN S 719.40 Arthraigia Unspec 03/02/2011 KT CORRECTIONAL SECURITY OFFICER, ALLEN S 333.94 RESTLESS LEGS SYNDROME (RLS) 03/02/2011 KT CORRECTIONAL SECURITY OFFICER, ALLEN S 719.40 Arthraigia Unspec 03/02/2011 KT CORRECTIONAL SECURITY OFFICER, ALLEN S 333.94 RESTLESS LEGS SYNDROME (RLS) 03/02/2011 KT MILESN, ALLEN S 719.40 Arthraigia Unspec 03/02/2011 BILLY MERAZ APRNNDA S 333.94 RESTLESS LEGS SYNDROME (RLS) 03/02/2011 BILLY MERAZ APRNNDA S 719.40 Arthraigia Unspec 03/02/2011 BILLY MERAZ APRNNDA S 333.94 RESTLESS LEGS SYNDROME (RLS) 03/02/2011 BILLY MERAZ APRNNDA S 719.40 Arthraigia Unspec 03/02/2011 BILLY MERAZ APRNNDA S 333.94 RESTLESS LEGS SYNDROME (RLS) 03/02/2011 BILLY MERAZ APRNNDA S 719.40 Arthraigia Unspec 03/02/2011 BILLY MERAZ APRNNDA S 333.94 RESTLESS LEGS SYNDROME (RLS) 03/02/2011 BILLY MERAZ APRNNDA S 719.40 Arthraigia Unspec 05/09/2011 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 05/09/2011 EDU WILLOUGHBY DO 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 05/09/2011 MURIEL POST DO 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 05/09/2011 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 05/09/2011 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 05/09/2011 ALLEN MERAZ APRN S 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 05/09/2011 KT CORRECTIONAL SECURITY OFFICER, ALLEN S 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 05/09/2011 KT CORRECTIONAL SECURITY OFFICER, ALLEN S 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 05/09/2011 KT CORRECTIONAL SECURITY OFFICER, ALLEN S 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 05/09/2011 KT CORRECTIONAL SECURITY OFFICER, ALLEN S 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 05/09/2011 KT CORRECTIONAL SECURITY OFFICER, ALLEN S 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 05/09/2011 KT CORRECTIONAL SECURITY OFFICER, ALLEN S 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 05/09/2011 KT CORRECTIONAL SECURITY OFFICER, ALLEN S 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 05/09/2011 KT CORRECTIONAL SECURITY OFFICER, ALLEN S 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 05/24/2011 300.00 An Anxiety Unspec 05/24/2011 307.47 SI DYSSOMNIA NOS 05/24/2011 EDU WILLOUGHBY DO 300.00 An Anxiety Unspec 05/24/2011 EDU WILLOUGHBY DO 307.47 SI DYSSOMNIA NOS 05/24/2011 MURIEL POST DO 300.00 An Anxiety Unspec 05/24/2011 MURIEL POST DO 307.47 SI DYSSOMNIA NOS 05/24/2011 300.00 An Anxiety Unspec 05/24/2011 307.47 SI DYSSOMNIA NOS 05/24/2011 300.00 An Anxiety Unspec 05/24/2011 307.47 SI DYSSOMNIA NOS 05/24/2011 300.00 An Anxiety Unspec 05/24/2011 307.47 SI DYSSOMNIA NOS 05/24/2011 300.00 An Anxiety Unspec 05/24/2011 307.47 SI DYSSOMNIA NOS 05/24/2011 300.00 An Anxiety Unspec 05/24/2011 307.47 SI DYSSOMNIA NOS 05/24/2011 KT ENGLE, ALLEN S 300.00 An Anxiety Unspec 05/24/2011 KT ENGLE, ALLEN S 307.47 SI DYSSOMNIA NOS 05/24/2011 EDU WILLOUGHBY DO 300.00 An Anxiety Unspec 05/24/2011 EDU WILLOUGHBY DO 307.47 SI DYSSOMNIA NOS 05/24/2011 AMRIT CORRECTIONAL SECURITY OFFICER, MAYRA A 300.00 An Anxiety Unspec 05/24/2011 AMRIT CORRECTIONAL SECURITY OFFICER, MAYRA A 307.47 SI DYSSOMNIA NOS 05/24/2011 WELLINGTON MILESNJORDAN 300.00 An Anxiety Unspec 05/24/2011 WELLINGTON MILESNJORDAN 307.47 SI DYSSOMNIA NOS 05/24/2011 KT CORRECTIONAL SECURITY OFFICER, ALLEN S 300.00 An Anxiety Unspec 05/24/2011 KT CORRECTIONAL SECURITY OFFICER, ALLEN S 307.47 SI DYSSOMNIA NOS 05/24/2011 300.00 An Anxiety Unspec 05/24/2011 307.47 SI DYSSOMNIA NOS 05/24/2011 JOCELYN CORRECTIONAL SECURITY OFFICER, ALY R 300.00 An Anxiety Unspec 05/24/2011 JOCELYN CORRECTIONAL SECURITY OFFICER, ALY R 307.47 SI DYSSOMNIA NOS 05/24/2011 KT CORRECTIONAL SECURITY OFFICER, ALLEN S 300.00 An Anxiety Unspec 05/24/2011 KT CORRECTIONAL SECURITY OFFICER, ALLEN S 307.47 SI DYSSOMNIA NOS 05/24/2011 KT CORRECTIONAL SECURITY OFFICER, ALLEN S 300.00 An Anxiety Unspec 05/24/2011 KT CORRECTIONAL SECURITY OFFICER, ALLEN S 307.47 SI DYSSOMNIA NOS 05/24/2011 KT CORRECTIONAL SECURITY OFFICER, ALLEN S 300.00 An Anxiety Unspec 05/24/2011 KT CORRECTIONAL SECURITY OFFICER, ALLEN S 307.47 SI DYSSOMNIA NOS 05/24/2011 KT CORRECTIONAL SECURITY OFFICER, ALLEN S 300.00 An Anxiety Unspec 05/24/2011 KT CORRECTIONAL SECURITY OFFICER, ALLEN S 307.47 SI DYSSOMNIA NOS 05/24/2011 KT CORRECTIONAL SECURITY OFFICER, ALLEN S 300.00 An Anxiety Unspec 05/24/2011 KT CORRECTIONAL SECURITY OFFICER, ALLEN S 307.47 SI DYSSOMNIA NOS 05/24/2011 KT CORRECTIONAL SECURITY OFFICER, ALLEN S 300.00 An Anxiety Unspec 05/24/2011 KT CORRECTIONAL SECURITY OFFICER, ALLEN S 307.47 SI DYSSOMNIA NOS 05/24/2011 KT CORRECTIONAL SECURITY OFFICER, ALLEN S 300.00 An Anxiety Unspec 05/24/2011 KT CORRECTIONAL SECURITY OFFICER, ALLEN S 307.47 SI DYSSOMNIA NOS 05/24/2011 KT CORRECTIONAL SECURITY OFFICER, ALLEN S 300.00 An Anxiety Unspec 05/24/2011 KT CORRECTIONAL SECURITY OFFICER, ALLEN S 307.47 SI DYSSOMNIA NOS 05/24/2011 KT CORRECTIONAL SECURITY OFFICER, ALLEN S 300.00 An Anxiety Unspec 05/24/2011 KT CORRECTIONAL SECURITY OFFICER, ALLEN S 307.47 SI DYSSOMNIA NOS 06/11/2011 465.9 Acute Upper Respiratory Infections Of Unspecified Site 06/11/2011 466.0 ACUTE BRONCHITIS 06/11/2011 CASE DOEDU K 465.9 Acute Upper Respiratory Infections Of Unspecified Site 06/11/2011 EDU WILLOUGHBY DO K 466.0 ACUTE BRONCHITIS 06/11/2011 MURIEL POST DO F 465.9 Acute Upper Respiratory Infections Of Unspecified Site 06/11/2011 MURIEL POST DO F 466.0 ACUTE BRONCHITIS 06/11/2011 465.9 Acute Upper Respiratory Infections Of Unspecified Site 06/11/2011 466.0 ACUTE BRONCHITIS 06/11/2011 465.9 Acute Upper Respiratory Infections Of Unspecified Site 06/11/2011 466.0 ACUTE BRONCHITIS 06/11/2011 465.9 Acute Upper Respiratory Infections Of Unspecified Site 06/11/2011 466.0 ACUTE BRONCHITIS 06/11/2011 465.9 Acute Upper Respiratory Infections Of Unspecified Site 06/11/2011 466.0 ACUTE BRONCHITIS 06/11/2011 465.9 Acute Upper Respiratory Infections Of Unspecified Site 06/11/2011 466.0 ACUTE BRONCHITIS 06/11/2011 KT MILESN, ALLEN S 465.9 Acute Upper Respiratory Infections Of Unspecified Site 06/11/2011 KT MILESN, ALLEN S 466.0 ACUTE BRONCHITIS 06/11/2011 CASE DOESTELLAA K 465.9 Acute Upper Respiratory Infections Of Unspecified Site 06/11/2011 CASE DOESTELLAA K 466.0 ACUTE BRONCHITIS 06/11/2011 AMRIT CORRECTIONAL SECURITY OFFICER, MAYRA A 465.9 Acute Upper Respiratory Infections Of Unspecified Site 06/11/2011 AMRIT ONIEL, MAYRA A 466.0 ACUTE BRONCHITIS 06/11/2011 JORDAN PARIS APRN 465.9 Acute Upper Respiratory Infections Of Unspecified Site 06/11/2011 [place] CORRECTIONAL SECURITY OFFICER, JORDAN JOYNER 466.0 ACUTE BRONCHITIS 06/11/2011 KT CORRECTIONAL SECURITY OFFICER, ALLEN S 465.9 Acute Upper Respiratory Infections Of Unspecified Site 06/11/2011 KT CORRECTIONAL SECURITY OFFICER, ALLEN S 466.0 ACUTE BRONCHITIS 06/11/2011 465.9 Acute Upper Respiratory Infections Of Unspecified Site 06/11/2011 466.0 ACUTE BRONCHITIS 06/11/2011 JOCELYN CORRECTIONAL SECURITY OFFICER, ALY R 465.9 Acute Upper Respiratory Infections Of Unspecified Site 06/11/2011 JOCELYN CORRECTIONAL SECURITY OFFICER, ALY R 466.0 ACUTE BRONCHITIS 06/11/2011 KT CORRECTIONAL SECURITY OFFICER, ALLEN S 465.9 Acute Upper Respiratory Infections Of Unspecified Site 06/11/2011 KT CORRECTIONAL SECURITY OFFICER, ALLEN S 466.0 ACUTE BRONCHITIS 06/11/2011 KT CORRECTIONAL SECURITY OFFICER, ALLEN S 465.9 Acute Upper Respiratory Infections Of Unspecified Site 06/11/2011 KT CORRECTIONAL SECURITY OFFICER, ALLEN S 466.0 ACUTE BRONCHITIS 06/11/2011 KT CORRECTIONAL SECURITY OFFICER, ALLEN S 465.9 Acute Upper Respiratory Infections Of Unspecified Site 06/11/2011 KT CORRECTIONAL SECURITY OFFICER, ALLEN S 466.0 ACUTE BRONCHITIS 06/11/2011 KT CORRECTIONAL SECURITY OFFICER, ALLEN S 465.9 Acute Upper Respiratory Infections Of Unspecified Site 06/11/2011 KT CORRECTIONAL SECURITY OFFICER, ALLEN S 466.0 ACUTE BRONCHITIS 06/11/2011 KT CORRECTIONAL SECURITY OFFICER, ALLEN S 465.9 Acute Upper Respiratory Infections Of Unspecified Site 06/11/2011 KT CORRECTIONAL SECURITY OFFICER, ALLEN S 466.0 ACUTE BRONCHITIS 06/11/2011 KT CORRECTIONAL SECURITY OFFICER, ALLEN S 465.9 Acute Upper Respiratory Infections Of Unspecified Site 06/11/2011 KT CORRECTIONAL SECURITY OFFICER, ALLEN S 466.0 ACUTE BRONCHITIS 06/11/2011 KT CORRECTIONAL SECURITY OFFICER, ALLEN S 465.9 Acute Upper Respiratory Infections Of Unspecified Site 06/11/2011 KT CORRECTIONAL SECURITY OFFICER, ALLEN S 466.0 ACUTE BRONCHITIS 06/11/2011 KT CORRECTIONAL SECURITY OFFICER, ALLEN S 465.9 Acute Upper Respiratory Infections Of Unspecified Site 06/11/2011 KT CORRECTIONAL SECURITY OFFICER, ALLEN S 466.0 ACUTE BRONCHITIS 06/11/2011 BILLY MERAZ APRNNDA S 465.9 Acute Upper Respiratory Infections Of Unspecified Site 06/11/2011 BILYL MERAZ APRNNDA S 466.0 ACUTE BRONCHITIS 07/03/2011 300.00 AN ANXIETY UNSPEC 07/03/2011 EDU WILLOUGHBY DO K 300.00 AN ANXIETY UNSPEC 07/03/2011 MURIEL POST DO 300.00 AN ANXIETY UNSPEC 07/03/2011 300.00 AN ANXIETY UNSPEC 07/03/2011 300.00 AN ANXIETY UNSPEC 07/03/2011 300.00 AN ANXIETY UNSPEC 07/03/2011 300.00 AN ANXIETY UNSPEC 07/03/2011 300.00 AN ANXIETY UNSPEC 07/03/2011 BILLY MERAZ APRNNDA S 300.00 AN ANXIETY UNSPEC 07/03/2011 EDU WILLOUGHBY DO K 300.00 AN ANXIETY UNSPEC 07/03/2011 MAYRA MARCUS APRN A 300.00 AN ANXIETY UNSPEC 07/03/2011 PARIS APRN, JORDAN JOYNER 300.00 AN ANXIETY UNSPEC 07/03/2011 BILLY MERAZ APRNNDA S 300.00 AN ANXIETY UNSPEC 07/03/2011 300.00 AN ANXIETY UNSPEC 07/03/2011 ALY BANKS APRN R 300.00 AN ANXIETY UNSPEC 07/03/2011 BILLY MERAZ APRNNDA S 300.00 AN ANXIETY UNSPEC 07/03/2011 KT ENGLE ALLEN S 300.00 AN ANXIETY UNSPEC 07/03/2011 BILLY MERAZ APRNNDA S 300.00 AN ANXIETY UNSPEC 07/03/2011 BILLY MERAZ APRNNDA S 300.00 AN ANXIETY UNSPEC 07/03/2011 KT ENGLE ALLEN S 300.00 AN ANXIETY UNSPEC 07/03/2011 KT CORRECTIONAL SECURITY OFFICER, ALLEN S 300.00 AN ANXIETY UNSPEC 07/03/2011 KT ENGLE ALLEN S 300.00 AN ANXIETY UNSPEC 07/03/2011 KT ENGLE ALLEN S 300.00 AN ANXIETY UNSPEC 07/03/2011 KT ENGLE ALLEN S 300.00 AN ANXIETY UNSPEC 10/04/2011 466.0 Bronchitis, Acute 10/04/2011 EDU WILLOUGHBY DO K 466.0 Bronchitis, Acute 10/04/2011 MURIEL POST DO 466.0 Bronchitis, Acute 10/04/2011 466.0 Bronchitis, Acute 10/04/2011 466.0 Bronchitis, Acute 10/04/2011 466.0 Bronchitis, Acute 10/04/2011 466.0 Bronchitis, Acute 10/04/2011 466.0 Bronchitis, Acute 10/04/2011 KT CORRECTIONAL SECURITY OFFICER, ALLEN S 466.0 Bronchitis, Acute 10/04/2011 EDU WILLOUGHBY DO 466.0 Bronchitis, Acute 10/04/2011 AMRIT CORRECTIONAL SECURITY OFFICER, MAYRA A 466.0 Bronchitis, Acute 10/04/2011 [place] CORRECTIONAL SECURITY OFFICER, JORDAN JOYNER 466.0 Bronchitis, Acute 10/04/2011 TK CORRECTIONAL SECURITY OFFICER, ALLEN S 466.0 Bronchitis, Acute 10/04/2011 466.0 Bronchitis, Acute 10/04/2011 JOCELYN CORRECTIONAL SECURITY OFFICER, ALY R 466.0 Bronchitis, Acute 10/04/2011 KT CORRECTIONAL SECURITY OFFICER, ALLEN S 466.0 Bronchitis, Acute 10/04/2011 KT CORRECTIONAL SECURITY OFFICER, ALLEN S 466.0 Bronchitis, Acute 10/04/2011 KT CORRECTIONAL SECURITY OFFICER, ALLEN S 466.0 Bronchitis, Acute 10/04/2011 KT CORRECTIONAL SECURITY OFFICER, ALLEN S 466.0 Bronchitis, Acute 10/04/2011 KT CORRECTIONAL SECURITY OFFICER, ALLEN S 466.0 Bronchitis, Acute 10/04/2011 KT CORRECTIONAL SECURITY OFFICER, ALLEN S 466.0 Bronchitis, Acute 10/04/2011 KT CORRECTIONAL SECURITY OFFICER, ALLEN S 466.0 Bronchitis, Acute 10/04/2011 KT CORRECTIONAL SECURITY OFFICER, ALLEN S 466.0 Bronchitis, Acute 10/04/2011 KT CORRECTIONAL SECURITY OFFICER, ALLEN S 466.0 Bronchitis, Acute 10/08/2011 296.30 MO DEPRESSIVE RECURRENT UNSPECIFIED 10/08/2011 EDU WILLOUGHBY DO 296.30 MO DEPRESSIVE RECURRENT UNSPECIFIED 10/08/2011 MURIEL POST DO 296.30 MO DEPRESSIVE RECURRENT UNSPECIFIED 10/08/2011 296.30 MO DEPRESSIVE RECURRENT UNSPECIFIED 10/08/2011 296.30 MO DEPRESSIVE RECURRENT UNSPECIFIED 10/08/2011 296.30 MO DEPRESSIVE RECURRENT UNSPECIFIED 10/08/2011 296.30 MO DEPRESSIVE RECURRENT UNSPECIFIED 10/08/2011 296.30 MO DEPRESSIVE RECURRENT UNSPECIFIED 10/08/2011 KT CORRECTIONAL SECURITY OFFICER, ALLEN S 296.30 MO DEPRESSIVE RECURRENT UNSPECIFIED 10/08/2011 EDU WILLOUGHBY DO K 296.30 MO DEPRESSIVE RECURRENT UNSPECIFIED 10/08/2011 AMRIT CORRECTIONAL SECURITY OFFICER, MAYRA A 296.30 MO DEPRESSIVE RECURRENT UNSPECIFIED 10/08/2011 [place] CORRECTIONAL SECURITY OFFICER, JORDAN JOYNER 296.30 MO DEPRESSIVE RECURRENT UNSPECIFIED 10/08/2011 KT CORRECTIONAL SECURITY OFFICER, ALLEN S 296.30 MO DEPRESSIVE RECURRENT UNSPECIFIED 10/08/2011 296.30 MO DEPRESSIVE RECURRENT UNSPECIFIED 10/08/2011 JOCELYN CORRECTIONAL SECURITY OFFICERALY Rosario R 296.30 MO DEPRESSIVE RECURRENT UNSPECIFIED 10/08/2011 KT CORRECTIONAL SECURITY OFFICER, ALLEN S 296.30 MO DEPRESSIVE RECURRENT UNSPECIFIED 10/08/2011 KT CORRECTIONAL SECURITY OFFICER, ALLEN S 296.30 MO DEPRESSIVE RECURRENT UNSPECIFIED 10/08/2011 KT CORRECTIONAL SECURITY OFFICER, ALLEN S 296.30 MO DEPRESSIVE RECURRENT UNSPECIFIED 10/08/2011 KT CORRECTIONAL SECURITY OFFICER, ALLEN S 296.30 MO DEPRESSIVE RECURRENT UNSPECIFIED 10/08/2011 KT CORRECTIONAL SECURITY OFFICER, ALLEN S 296.30 MO DEPRESSIVE RECURRENT UNSPECIFIED 10/08/2011 KT CORRECTIONAL SECURITY OFFICER, ALLEN S 296.30 MO DEPRESSIVE RECURRENT UNSPECIFIED 10/08/2011 KT CORRECTIONAL SECURITY OFFICER, ALLEN S 296.30 MO DEPRESSIVE RECURRENT UNSPECIFIED 10/08/2011 KT CORRECTIONAL SECURITY OFFICER, ALLEN S 296.30 MO DEPRESSIVE RECURRENT UNSPECIFIED 10/08/2011 KT CORRECTIONAL SECURITY OFFICER, ALLEN S 296.30 MO DEPRESSIVE RECURRENT UNSPECIFIED 01/06/2012 461.9 Sinusitis Acute 01/06/2012 692.2 Contact Dermatitis And 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 01/06/2012 EDU WILLOUGHBY DO 461.9 Sinusitis Acute 01/06/2012 EDU WILLOUGHBY DO 692.2 Contact Dermatitis And 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 01/06/2012 MURIEL POST DO 461.9 Sinusitis Acute 01/06/2012 MURIEL POST DO 692.2 Contact Dermatitis And 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 01/06/2012 461.9 Sinusitis Acute 01/06/2012 692.2 Contact Dermatitis And 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 01/06/2012 461.9 Sinusitis Acute 01/06/2012 692.2 Contact Dermatitis And 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 01/06/2012 461.9 Sinusitis Acute 01/06/2012 692.2 Contact Dermatitis And 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 01/06/2012 461.9 Sinusitis Acute 01/06/2012 692.2 Contact Dermatitis And 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 01/06/2012 461.9 Sinusitis Acute 01/06/2012 692.2 Contact Dermatitis And 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 01/06/2012 KT CORRECTIONAL SECURITY OFFICERBILLY RosarioNDA S 461.9 Sinusitis Acute 01/06/2012 KT CORRECTIONAL SECURITY OFFICERBILLY RosarioNDA S 692.2 Contact Dermatitis And 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 01/06/2012 WILLOUGHBY DO EDU K 461.9 Sinusitis Acute 01/06/2012 WILLOUGHBY DO, EDU K 692.2 Contact Dermatitis And 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 01/06/2012 AMRIT CORRECTIONAL SECURITY OFFICER, MAYRA A 461.9 Sinusitis Acute 01/06/2012 AMRITAVRIL ENGLE, MAYRA A 692.2 Contact Dermatitis And 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 01/06/2012 [place] ENGLE JORDAN JOYNER 461.9 Sinusitis Acute 01/06/2012 PARIS ONIELJORDAN 692.2 Contact Dermatitis And 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 01/06/2012 BILLY MERAZ APRNNDA S 461.9 Sinusitis Acute 01/06/2012 KEYUR MERAZ APRNA S 692.2 Contact Dermatitis And 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 01/06/2012 461.9 Sinusitis Acute 01/06/2012 692.2 Contact Dermatitis And 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 01/06/2012 JOCELYN CORRECTIONAL SECURITY OFFICER, ALY R 461.9 Sinusitis Acute 01/06/2012 JOCELYN CORRECTIONAL SECURITY OFFICER, ALY R 692.2 Contact Dermatitis And 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 01/06/2012 KT CORRECTIONAL SECURITY OFFICERBILLY RosarioNDA S 461.9 Sinusitis Acute 01/06/2012 KT CORRECTIONAL SECURITY OFFICERBILLY RosarioNDA S 692.2 Contact Dermatitis And 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 01/06/2012 KT CORRECTIONAL SECURITY OFFICERBILLY RosarioNDA S 461.9 Sinusitis Acute 01/06/2012 BILLY MERAZ APRNNDA S 692.2 Contact Dermatitis And 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 01/06/2012 KT CORRECTIONAL SECURITY OFFICER, ALLEN S 461.9 Sinusitis Acute 01/06/2012 KT CORRECTIONAL SECURITY OFFICER, ALLEN S 692.2 Contact Dermatitis And 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 01/06/2012 KT CORRECTIONAL SECURITY OFFICER, ALLEN S 461.9 Sinusitis Acute 01/06/2012 KT CORRECTIONAL SECURITY OFFICER, ALLEN S 692.2 Contact Dermatitis And 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 01/06/2012 KT CORRECTIONAL SECURITY OFFICER, ALLEN S 461.9 Sinusitis Acute 01/06/2012 KT CORRECTIONAL SECURITY OFFICER, ALLEN S 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 Contact Dermatitis And 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 01/06/2012 KT CORRECTIONAL SECURITY OFFICER, ALLEN S 461.9 Sinusitis Acute 01/06/2012 KT CORRECTIONAL SECURITY OFFICER, ALLEN S 692.2 Contact Dermatitis And 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 01/06/2012 KT CORRECTIONAL SECURITY OFFICER, ALLEN S 461.9 Sinusitis Acute 01/06/2012 KT CORRECTIONAL SECURITY OFFICER, ALLEN S 692.2 Contact Dermatitis And 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 01/06/2012 KT CORRECTIONAL SECURITY OFFICER, ALLEN S 461.9 Sinusitis Acute 01/06/2012 KT CORRECTIONAL SECURITY OFFICER, ALLEN S 692.2 Contact Dermatitis And 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 01/06/2012 KT CORRECTIONAL SECURITY OFFICER, ALLEN S 461.9 Sinusitis Acute 01/06/2012 KT CORRECTIONAL SECURITY OFFICER, ALLEN S 692.2 Contact Dermatitis And 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 01/13/2012 709.9 UNSPECIFIED DISORDER OF SKIN AND SUBCUTANEOUS TISSUE 01/13/2012 EDU WILLOUGHBY DO 709.9 UNSPECIFIED DISORDER OF SKIN AND SUBCUTANEOUS TISSUE 01/13/2012 MURIEL POST DO 709.9 UNSPECIFIED DISORDER OF SKIN AND SUBCUTANEOUS TISSUE 01/13/2012 709.9 UNSPECIFIED DISORDER OF SKIN AND SUBCUTANEOUS TISSUE 01/13/2012 709.9 UNSPECIFIED DISORDER OF SKIN AND SUBCUTANEOUS TISSUE 01/13/2012 709.9 UNSPECIFIED DISORDER OF SKIN AND SUBCUTANEOUS TISSUE 01/13/2012 709.9 UNSPECIFIED DISORDER OF SKIN AND SUBCUTANEOUS TISSUE 01/13/2012 709.9 UNSPECIFIED DISORDER OF SKIN AND SUBCUTANEOUS TISSUE 01/13/2012 KT MILESN, ALLEN S 709.9 UNSPECIFIED DISORDER OF SKIN AND SUBCUTANEOUS TISSUE 01/13/2012 EDU WILLOUGHBY DO 709.9 UNSPECIFIED DISORDER OF SKIN AND SUBCUTANEOUS TISSUE 01/13/2012 AMRIT MILESN, MAYRA A 709.9 UNSPECIFIED DISORDER OF SKIN AND SUBCUTANEOUS TISSUE 01/13/2012 [place] ONIEL JORDAN JOYNER 709.9 UNSPECIFIED DISORDER OF SKIN AND SUBCUTANEOUS TISSUE 01/13/2012 KT CORRECTIONAL SECURITY OFFICER ALLEN S 709.9 UNSPECIFIED DISORDER OF SKIN AND SUBCUTANEOUS TISSUE 01/13/2012 709.9 UNSPECIFIED DISORDER OF SKIN AND SUBCUTANEOUS TISSUE 01/13/2012 ALY BANKS APRN 709.9 UNSPECIFIED DISORDER OF SKIN AND SUBCUTANEOUS TISSUE 01/13/2012 KT CORRECTIONAL SECURITY OFFICER ALLEN S 709.9 UNSPECIFIED DISORDER OF SKIN AND SUBCUTANEOUS TISSUE 01/13/2012 KT CORRECTIONAL SECURITY OFFICER, ALLEN S 709.9 UNSPECIFIED DISORDER OF SKIN AND SUBCUTANEOUS TISSUE 01/13/2012 KT MILESN ALLEN S 709.9 UNSPECIFIED DISORDER OF SKIN AND SUBCUTANEOUS TISSUE 01/13/2012 TK CORRECTIONAL SECURITY OFFICER, ALLEN S 709.9 UNSPECIFIED DISORDER OF SKIN AND SUBCUTANEOUS TISSUE 01/13/2012 KT CORRECTIONAL SECURITY OFFICER, ALLEN S 709.9 UNSPECIFIED DISORDER OF SKIN AND SUBCUTANEOUS TISSUE 01/13/2012 KT CORRECTIONAL SECURITY OFFICER, ALLEN S 709.9 UNSPECIFIED DISORDER OF SKIN AND SUBCUTANEOUS TISSUE 01/13/2012 KT CORRECTIONAL SECURITY OFFICER, ALLEN S 709.9 UNSPECIFIED DISORDER OF SKIN AND SUBCUTANEOUS TISSUE 01/13/2012 KT MILESN, ALLEN S 709.9 UNSPECIFIED DISORDER OF SKIN AND SUBCUTANEOUS TISSUE 01/13/2012 KT CORRECTIONAL SECURITY OFFICER, ALLEN S 709.9 UNSPECIFIED DISORDER OF SKIN AND SUBCUTANEOUS TISSUE 01/15/2012 296.32 MO DEPRESSIVE RECURRENT MODERATE 01/15/2012 EDU WILLOUGHBY DO 296.32 MO DEPRESSIVE RECURRENT MODERATE 01/15/2012 MURIEL POST DO 296.32 MO DEPRESSIVE RECURRENT MODERATE 01/15/2012 296.32 MO DEPRESSIVE RECURRENT MODERATE 01/15/2012 296.32 MO DEPRESSIVE RECURRENT MODERATE 01/15/2012 296.32 MO DEPRESSIVE RECURRENT MODERATE 01/15/2012 296.32 MO DEPRESSIVE RECURRENT MODERATE 01/15/2012 296.32 MO DEPRESSIVE RECURRENT MODERATE 01/15/2012 KT ENGLE, ALLEN S 296.32 MO DEPRESSIVE RECURRENT MODERATE 01/15/2012 EDU WILLOUGHBY DO 296.32 MO DEPRESSIVE RECURRENT MODERATE 01/15/2012 AMRIT APRN, MAYRA A 296.32 MO DEPRESSIVE RECURRENT MODERATE 01/15/2012 [place] ON[place]EL JORDAN JOYNER 296.32 MO DEPRESSIVE RECURRENT MODERATE 01/15/2012 KT CORRECTIONAL SECURITY OFFICER, ALLEN S 296.32 MO DEPRESSIVE RECURRENT MODERATE 01/15/2012 296.32 MO DEPRESSIVE RECURRENT MODERATE 01/15/2012 JOCELYN ENGLE ALY R 296.32 MO DEPRESSIVE RECURRENT MODERATE 01/15/2012 KT CORRECTIONAL SECURITY OFFICER, ALLEN S 296.32 MO DEPRESSIVE RECURRENT MODERATE 01/15/2012 KT CORRECTIONAL SECURITY OFFICER, ALLEN S 296.32 MO DEPRESSIVE RECURRENT MODERATE 01/15/2012 KT CORRECTIONAL SECURITY OFFICER, ALLEN S 296.32 MO DEPRESSIVE RECURRENT MODERATE 01/15/2012 KT CORRECTIONAL SECURITY OFFICER, ALLEN S 296.32 MO DEPRESSIVE RECURRENT MODERATE 01/15/2012 KT CORRECTIONAL SECURITY OFFICER, ALLEN S 296.32 MO DEPRESSIVE RECURRENT MODERATE 01/15/2012 KT CORRECTIONAL SECURITY OFFICER, ALLEN S 296.32 MO DEPRESSIVE RECURRENT MODERATE 01/15/2012 KT CORRECTIONAL SECURITY OFFICER, ALLEN S 296.32 MO DEPRESSIVE RECURRENT MODERATE 01/15/2012 KT ENGLE, ALLEN S 296.32 MO DEPRESSIVE RECURRENT MODERATE 01/15/2012 KT ENGLE, ALLEN S 296.32 MO DEPRESSIVE RECURRENT MODERATE 03/26/2012 V76.19 OTHER SCREENING BREAST EXAMINATION 03/26/2012 V76.2 CERVICAL CANCER SCREENING (PAP SMEAR) 03/26/2012 EDU WILLOUGHBY DO V76.19 OTHER SCREENING BREAST EXAMINATION 03/26/2012 EDU WILLOUGHBY DO V76.2 CERVICAL CANCER SCREENING (PAP SMEAR) 03/26/2012 MURIEL POST DO V76.19 OTHER SCREENING BREAST EXAMINATION 03/26/2012 MURIEL POST DO V76.2 CERVICAL CANCER SCREENING (PAP SMEAR) 03/26/2012 V76.19 OTHER SCREENING BREAST EXAMINATION 03/26/2012 V76.2 CERVICAL CANCER SCREENING (PAP SMEAR) 03/26/2012 V76.19 OTHER SCREENING BREAST EXAMINATION 03/26/2012 V76.2 CERVICAL CANCER SCREENING (PAP SMEAR) 03/26/2012 V76.19 OTHER SCREENING BREAST EXAMINATION 03/26/2012 V76.2 CERVICAL CANCER SCREENING (PAP SMEAR) 03/26/2012 V76.19 OTHER SCREENING BREAST EXAMINATION 03/26/2012 V76.2 CERVICAL CANCER SCREENING (PAP SMEAR) 03/26/2012 V76.19 OTHER SCREENING BREAST EXAMINATION 03/26/2012 V76.2 CERVICAL CANCER SCREENING (PAP SMEAR) 03/26/2012 BILLY MERAZ APRNNDA S V76.19 OTHER SCREENING BREAST EXAMINATION 03/26/2012 BILLY MERAZ APRNNDA S V76.2 CERVICAL CANCER SCREENING (PAP SMEAR) 03/26/2012 EDU WILLOUGHBY DO K V76.19 OTHER SCREENING BREAST EXAMINATION 03/26/2012 EDU WILLOUGHBY DO K V76.2 CERVICAL CANCER SCREENING (PAP SMEAR) 03/26/2012 MAYRA MARCUS APRN A V76.19 OTHER SCREENING BREAST EXAMINATION 03/26/2012 ROMEL MARCUS APRNIDI A V76.2 CERVICAL CANCER SCREENING (PAP SMEAR) 03/26/2012 JORDAN PARIS APRN V76.19 OTHER SCREENING BREAST EXAMINATION 03/26/2012 JORDAN [place] APRN V76.2 CERVICAL CANCER SCREENING (PAP SMEAR) 03/26/2012 BILLY MERAZ APRNNDA S V76.19 OTHER SCREENING BREAST EXAMINATION 03/26/2012 BILLY MERAZ APRNNDA S V76.2 CERVICAL CANCER SCREENING (PAP SMEAR) 03/26/2012 V76.19 OTHER SCREENING BREAST EXAMINATION 03/26/2012 V76.2 CERVICAL CANCER SCREENING (PAP SMEAR) 03/26/2012 JOCELYN ENGLE ALY R V76.19 OTHER SCREENING BREAST EXAMINATION 03/26/2012 JOCELYN ENGLE ALY R V76.2 CERVICAL CANCER SCREENING (PAP SMEAR) 03/26/2012 BILLY MERAZ APRNNDA S V76.19 OTHER SCREENING BREAST EXAMINATION 03/26/2012 BILLY MERAZ APRNNDA S V76.2 CERVICAL CANCER SCREENING (PAP SMEAR) 03/26/2012 BILLY MERAZ APRNNDA S V76.19 OTHER SCREENING BREAST EXAMINATION 03/26/2012 KT CORRECTIONAL SECURITY OFFICER, ALLEN S V76.2 CERVICAL CANCER SCREENING (PAP SMEAR) 03/26/2012 KT CORRECTIONAL SECURITY OFFICER, ALLEN S V76.19 OTHER SCREENING BREAST EXAMINATION 03/26/2012 KT CORRECTIONAL SECURITY OFFICER, ALLEN S V76.2 CERVICAL CANCER SCREENING (PAP SMEAR) 03/26/2012 KT CORRECTIONAL SECURITY OFFICER, ALLEN S V76.19 OTHER SCREENING BREAST EXAMINATION 03/26/2012 KT CORRECTIONAL SECURITY OFFICER, ALLEN S V76.2 CERVICAL CANCER SCREENING (PAP SMEAR) 03/26/2012 KT CORRECTIONAL SECURITY OFFICER, ALLEN S V76.19 OTHER SCREENING BREAST EXAMINATION 03/26/2012 KT CORRECTIONAL SECURITY OFFICER ALLEN S V76.2 CERVICAL CANCER SCREENING (PAP SMEAR) 03/26/2012 KT CORRECTIONAL SECURITY OFFICER, ALLEN S V76.19 OTHER SCREENING BREAST EXAMINATION 03/26/2012 KT CORRECTIONAL SECURITY OFFICER, ALLEN S V76.2 CERVICAL CANCER SCREENING (PAP SMEAR) 03/26/2012 KT ENGLE ALLEN S V76.19 OTHER SCREENING BREAST EXAMINATION 03/26/2012 KT CORRECTIONAL SECURITY OFFICER, ALLEN S V76.2 CERVICAL CANCER SCREENING (PAP SMEAR) 03/26/2012 KT CORRECTIONAL SECURITY OFFICER, ALLEN S V76.19 OTHER SCREENING BREAST EXAMINATION 03/26/2012 KT ENGLE ALLEN S V76.2 CERVICAL CANCER SCREENING (PAP SMEAR) 03/26/2012 KT ENGEL ALLEN S V76.19 OTHER SCREENING BREAST EXAMINATION 03/26/2012 KT CORRECTIONAL SECURITY OFFICER, ALLEN S V76.2 CERVICAL CANCER SCREENING (PAP SMEAR) 04/30/2012 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 04/30/2012 EDU WILLOUGHBY DO 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 04/30/2012 MURIEL POST DO 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 04/30/2012 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 04/30/2012 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 04/30/2012 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 04/30/2012 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 04/30/2012 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 04/30/2012 KT CORRECTIONAL SECURITY OFFICER, ALLEN S 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 04/30/2012 WILLOUGHBY DO, EDU K 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 04/30/2012 AMRIT CORRECTIONAL SECURITY OFFICER, MAYRA A 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 04/30/2012 [place] CORRECTIONAL SECURITY OFFICER, JORDAN JOYNER 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 04/30/2012 KT CORRECTIONAL SECURITY OFFICER, ALLEN S 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 04/30/2012 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 04/30/2012 JOCELYN CORRECTIONAL SECURITY OFFICER, ALY R 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 04/30/2012 KT CORRECTIONAL SECURITY OFFICER, ALLEN S 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 04/30/2012 KT CORRECTIONAL SECURITY OFFICER, ALLEN S 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 04/30/2012 KT CORRECTIONAL SECURITY OFFICER, ALLEN S 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 04/30/2012 KT CORRECTIONAL SECURITY OFFICER, ALLEN S 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 04/30/2012 KT CORRECTIONAL SECURITY OFFICER, ALLEN S 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 04/30/2012 KT CORRECTIONAL SECURITY OFFICER, ALLEN S 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 04/30/2012 KT CORRECTIONAL SECURITY OFFICER, ALLEN S 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 04/30/2012 KT CORRECTIONAL SECURITY OFFICER, ALLEN S 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 04/30/2012 KT MILESN, ALLEN S 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 06/13/2012 461.9 ACUTE SINUSITIS UNSPECIFIED 06/13/2012 466.0 ACUTE BRONCHITIS 06/13/2012 EDU WILLOUGHBY DO 461.9 ACUTE SINUSITIS UNSPECIFIED 06/13/2012 EDU WILLOUGHBY DO 466.0 ACUTE BRONCHITIS 06/13/2012 MURIEL POST DO 461.9 ACUTE SINUSITIS UNSPECIFIED 06/13/2012 MURIEL POST DO 466.0 ACUTE BRONCHITIS 06/13/2012 461.9 ACUTE SINUSITIS UNSPECIFIED 06/13/2012 466.0 ACUTE BRONCHITIS 06/13/2012 461.9 ACUTE SINUSITIS UNSPECIFIED 06/13/2012 466.0 ACUTE BRONCHITIS 06/13/2012 461.9 ACUTE SINUSITIS UNSPECIFIED 06/13/2012 466.0 ACUTE BRONCHITIS 06/13/2012 461.9 ACUTE SINUSITIS UNSPECIFIED 06/13/2012 466.0 ACUTE BRONCHITIS 06/13/2012 461.9 ACUTE SINUSITIS UNSPECIFIED 06/13/2012 466.0 ACUTE BRONCHITIS 06/13/2012 KT CORRECTIONAL SECURITY OFFICER, ALLEN S 461.9 ACUTE SINUSITIS UNSPECIFIED 06/13/2012 KT CORRECTIONAL SECURITY OFFICER, ALLEN S 466.0 ACUTE BRONCHITIS 06/13/2012 WILLOUGHBY DO, EDU K 461.9 ACUTE SINUSITIS UNSPECIFIED 06/13/2012 WILLOUGHBY DO, EDU K 466.0 ACUTE BRONCHITIS 06/13/2012 AMRIT CORRECTIONAL SECURITY OFFICER, MAYRA A 461.9 ACUTE SINUSITIS UNSPECIFIED 06/13/2012 AMRIT CORRECTIONAL SECURITY OFFICER, MAYRA A 466.0 ACUTE BRONCHITIS 06/13/2012 [place] CORRECTIONAL SECURITY OFFICER, JORDAN JOYNER 461.9 ACUTE SINUSITIS UNSPECIFIED 06/13/2012 [place] CORRECTIONAL SECURITY OFFICER, JORDAN JOYNER 466.0 ACUTE BRONCHITIS 06/13/2012 KT CORRECTIONAL SECURITY OFFICER, ALLEN S 461.9 ACUTE SINUSITIS UNSPECIFIED 06/13/2012 KT CORRECTIONAL SECURITY OFFICER, ALLEN S 466.0 ACUTE BRONCHITIS 06/13/2012 461.9 ACUTE SINUSITIS UNSPECIFIED 06/13/2012 466.0 ACUTE BRONCHITIS 06/13/2012 JOCELYN CORRECTIONAL SECURITY OFFICER, ALY R 461.9 ACUTE SINUSITIS UNSPECIFIED 06/13/2012 JOCELYN CORRECTIONAL SECURITY OFFICER, ALY R 466.0 ACUTE BRONCHITIS 06/13/2012 KT CORRECTIONAL SECURITY OFFICER, ALLEN S 461.9 ACUTE SINUSITIS UNSPECIFIED 06/13/2012 KT CORRECTIONAL SECURITY OFFICER, ALLEN S 466.0 ACUTE BRONCHITIS 06/13/2012 KT CORRECTIONAL SECURITY OFFICER, ALLEN S 461.9 ACUTE SINUSITIS UNSPECIFIED 06/13/2012 KT CORRECTIONAL SECURITY OFFICER, ALLEN S 466.0 ACUTE BRONCHITIS 06/13/2012 KT CORRECTIONAL SECURITY OFFICER, ALLEN S 461.9 ACUTE SINUSITIS UNSPECIFIED 06/13/2012 KT CORRECTIONAL SECURITY OFFICER, ALLEN S 466.0 ACUTE BRONCHITIS 06/13/2012 KT CORRECTIONAL SECURITY OFFICER, ALLEN S 461.9 ACUTE SINUSITIS UNSPECIFIED 06/13/2012 KT CORRECTIONAL SECURITY OFFICER, ALLEN S 466.0 ACUTE BRONCHITIS 06/13/2012 KT CORRECTIONAL SECURITY OFFICER, ALLEN S 461.9 ACUTE SINUSITIS UNSPECIFIED 06/13/2012 KT CORRECTIONAL SECURITY OFFICER, ALLEN S 466.0 ACUTE BRONCHITIS 06/13/2012 KT CORRECTIONAL SECURITY OFFICER, ALLEN S 461.9 ACUTE SINUSITIS UNSPECIFIED 06/13/2012 KT CORRECTIONAL SECURITY OFFICER, ALLEN S 466.0 ACUTE BRONCHITIS 06/13/2012 KT CORRECTIONAL SECURITY OFFICER, ALLEN S 461.9 ACUTE SINUSITIS UNSPECIFIED 06/13/2012 KT CORRECTIONAL SECURITY OFFICER, ALLEN S 466.0 ACUTE BRONCHITIS 06/13/2012 KT CORRECTIONAL SECURITY OFFICER, ALLEN S 461.9 ACUTE SINUSITIS UNSPECIFIED 06/13/2012 KT CORRECTIONAL SECURITY OFFICER, ALLEN S 466.0 ACUTE BRONCHITIS 06/13/2012 KT CORRECTIONAL SECURITY OFFICER, ALLEN S 461.9 ACUTE SINUSITIS UNSPECIFIED 06/13/2012 KT CORRECTIONAL SECURITY OFFICER, ALLEN S 466.0 ACUTE BRONCHITIS 09/03/2012 EDU WILLOUGHBY DO 786.07 WHEEZING 09/03/2012 EDU WILLOUGHBY DO 786.2 COUGH 09/03/2012 MURIEL POST DO 786.07 WHEEZING 09/03/2012 MURIEL POST DO 786.2 COUGH 09/03/2012 786.07 WHEEZING 09/03/2012 786.2 COUGH 09/03/2012 786.07 WHEEZING 09/03/2012 786.2 COUGH 09/03/2012 786.07 WHEEZING 09/03/2012 786.2 COUGH 09/03/2012 786.07 WHEEZING 09/03/2012 786.2 COUGH 09/03/2012 786.07 WHEEZING 09/03/2012 786.2 COUGH 09/03/2012 KT CORRECTIONAL SECURITY OFFICER, ALLEN S 786.07 WHEEZING 09/03/2012 KT CORRECTIONAL SECURITY OFFICER, ALLEN S 786.2 COUGH 09/03/2012 EDU WILLOUGHBY DO 786.07 WHEEZING 09/03/2012 WILLOUGHBY EDU RIVERA K 786.2 COUGH 09/03/2012 AMRIT CORRECTIONAL SECURITY OFFICER, MAYRA A 786.07 WHEEZING 09/03/2012 AMRIT CORRECTIONAL SECURITY OFFICER, MAYRA A 786.2 COUGH 09/03/2012 [place] CORRECTIONAL SECURITY OFFICER, JORDAN JOYNER 786.07 WHEEZING 09/03/2012 [place] CORRECTIONAL SECURITY OFFICER, JORDAN JOYNER 786.2 COUGH 09/03/2012 KT CORRECTIONAL SECURITY OFFICER, ALLEN S 786.07 WHEEZING 09/03/2012 KT CORRECTIONAL SECURITY OFFICER, ALLEN S 786.2 COUGH 09/03/2012 JOCELYN CORRECTIONAL SECURITY OFFICER, ALY R 786.07 WHEEZING 09/03/2012 JOCELYN CORRECTIONAL SECURITY OFFICER, ALY R 786.2 COUGH 09/03/2012 KT CORRECTIONAL SECURITY OFFICER, ALLEN S 786.07 WHEEZING 09/03/2012 KT CORRECTIONAL SECURITY OFFICER, ALLEN S 786.2 COUGH 09/03/2012 KT CORRECTIONAL SECURITY OFFICER, ALLEN S 786.07 WHEEZING 09/03/2012 KT CORRECTIONAL SECURITY OFFICER, ALLEN S 786.2 COUGH 09/03/2012 KT CORRECTIONAL SECURITY OFFICER, ALLEN S 786.07 WHEEZING 09/03/2012 KT CORRECTIONAL SECURITY OFFICER, ALLEN S 786.2 COUGH 09/03/2012 KT CORRECTIONAL SECURITY OFFICER, ALLEN S 786.07 WHEEZING 09/03/2012 KT CORRECTIONAL SECURITY OFFICER, ALLEN S 786.2 COUGH 09/03/2012 KT CORRECTIONAL SECURITY OFFICER, ALLEN S 786.07 WHEEZING 09/03/2012 KT CORRECTIONAL SECURITY OFFICER, ALLEN S 786.2 COUGH 09/03/2012 KT CORRECTIONAL SECURITY OFFICER, ALLEN S 786.07 WHEEZING 09/03/2012 KT CORRECTIONAL SECURITY OFFICER, ALLEN S 786.2 COUGH 09/03/2012 KT CORRECTIONAL SECURITY OFFICER, ALLEN S 786.07 WHEEZING 09/03/2012 KT CORRECTIONAL SECURITY OFFICER, ALLEN S 786.2 COUGH 09/03/2012 KT CORRECTIONAL SECURITY OFFICER, ALLEN S 786.07 WHEEZING 09/03/2012 KT CORRECTIONAL SECURITY OFFICER, ALLEN S 786.2 COUGH 09/03/2012 KT CORRECTIONAL SECURITY OFFICER, ALLEN S 786.07 WHEEZING 09/03/2012 KT CORRECTIONAL SECURITY OFFICER, ALLEN S 786.2 COUGH 09/24/2012 MURIEL POST DO 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 09/24/2012 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 09/24/2012 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 09/24/2012 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 09/24/2012 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 09/24/2012 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 09/24/2012 KT CORRECTIONAL SECURITY OFFICER, ALLEN S 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 09/24/2012 WILLOUGHBY EDU RIVERA K 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 09/24/2012 AMRIT CORRECTIONAL SECURITY OFFICER, MAYRA A 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 09/24/2012 [place] CORRECTIONAL SECURITY OFFICERJORDAN 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 09/24/2012 KT CORRECTIONAL SECURITY OFFICER, ALLEN S 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 09/24/2012 JOCELYN CORRECTIONAL SECURITY OFFICERMAGIALY R 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 09/24/2012 KT CORRECTIONAL SECURITY OFFICER, ALLEN S 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 09/24/2012 KT CORRECTIONAL SECURITY OFFICER, ALLEN S 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 09/24/2012 KT CORRECTIONAL SECURITY OFFICER, ALLEN S 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 09/24/2012 KT CORRECTIONAL SECURITY OFFICER, ALLEN S 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 09/24/2012 KT CORRECTIONAL SECURITY OFFICER, ALLEN S 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 09/24/2012 KT CORRECTIONAL SECURITY OFFICER, ALLEN S 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 09/24/2012 KT CORRECTIONAL SECURITY OFFICER, ALLEN S 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 09/24/2012 KT CORRECTIONAL SECURITY OFFICER, ALLEN S 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 09/24/2012 KT CORRECTIONAL SECURITY OFFICER, ALLEN S 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 10/22/2012 389.9 HEARING LOSS UNSPEC 10/22/2012 389.9 HEARING LOSS UNSPEC 10/22/2012 389.9 HEARING LOSS UNSPEC 10/22/2012 389.9 HEARING LOSS UNSPEC 10/22/2012 389.9 HEARING LOSS UNSPEC 10/22/2012 KT CORRECTIONAL SECURITY OFFICER, ALLEN S 389.9 HEARING LOSS UNSPEC 10/22/2012 EDU WILLOUGHBY DO K 389.9 HEARING LOSS UNSPEC 10/22/2012 AMRIT CORRECTIONAL SECURITY OFFICER, MAYRA A 389.9 HEARING LOSS UNSPEC 10/22/2012 JORDAN [place] APRN 389.9 HEARING LOSS UNSPEC 10/22/2012 KT MILESN, ALLEN S 389.9 HEARING LOSS UNSPEC 10/22/2012 ALY BANKS APRN R 389.9 HEARING LOSS UNSPEC 10/22/2012 KT MILESN, ALLEN S 389.9 HEARING LOSS UNSPEC 10/22/2012 KT MILESN, ALLEN S 389.9 HEARING LOSS UNSPEC 10/22/2012 KT MILESN, ALLEN S 389.9 HEARING LOSS UNSPEC 10/22/2012 KT CORRECTIONAL SECURITY OFFICER, ALLEN S 389.9 HEARING LOSS UNSPEC 10/22/2012 KT MILESN, ALLEN S 389.9 HEARING LOSS UNSPEC 10/22/2012 KT MILESN, ALLEN S 389.9 HEARING LOSS UNSPEC 10/22/2012 KT MILESN, ALLEN S 389.9 HEARING LOSS UNSPEC 10/22/2012 KT MILESN, ALLEN S 389.9 HEARING LOSS UNSPEC 10/22/2012 KT MILESN, ALLEN S 389.9 HEARING LOSS UNSPEC 11/28/2012 381.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 11/28/2012 695.3 ROSACEA 11/28/2012 381.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 11/28/2012 695.3 ROSACEA 11/28/2012 381.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 11/28/2012 695.3 ROSACEA 11/28/2012 381.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 11/28/2012 695.3 ROSACEA 11/28/2012 BILLY MERAZ APRNNDA S 381.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 11/28/2012 BILLY MERAZ APRNNDA S 695.3 ROSACEA 11/28/2012 [place] DO, EDU K 381.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 11/28/2012 WILL[place] DO EDU K 695.3 ROSACEA 11/28/2012 MAYRA MARCUS APRN A 381.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 11/28/2012 MAYRA MARCUS APRN A 695.3 ROSACEA 11/28/2012 JORDAN PARIS APRN 381.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 11/28/2012 [place] MILESN, JORDAN JOYNER 695.3 ROSACEA 11/28/2012 KT CORRECTIONAL SECURITY OFFICER, ALLEN S 381.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 11/28/2012 KT CORRECTIONAL SECURITY OFFICER, ALLEN S 695.3 ROSACEA 11/28/2012 JOCELYN CORRECTIONAL SECURITY OFFICER, ALY R 381.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 11/28/2012 JOCELYN CORRECTIONAL SECURITY OFFICER, ALY R 695.3 ROSACEA 11/28/2012 KT CORRECTIONAL SECURITY OFFICER, ALLEN S 381.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 11/28/2012 KT CORRECTIONAL SECURITY OFFICER, ALLEN S 695.3 ROSACEA 11/28/2012 KT CORRECTIONAL SECURITY OFFICER, ALLEN S 381.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 11/28/2012 KT CORRECTIONAL SECURITY OFFICER, ALLEN S 695.3 ROSACEA 11/28/2012 KT CORRECTIONAL SECURITY OFFICER, ALLEN S 381.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 11/28/2012 KT CORRECTIONAL SECURITY OFFICER, ALLEN S 695.3 ROSACEA 11/28/2012 KT CORRECTIONAL SECURITY OFFICER, ALLEN S 381.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 11/28/2012 KT CORRECTIONAL SECURITY OFFICER, ALLEN S 695.3 ROSACEA 11/28/2012 KT CORRECTIONAL SECURITY OFFICER, ALLEN S 381.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 11/28/2012 KT CORRECTIONAL SECURITY OFFICER, ALLEN S 695.3 ROSACEA 11/28/2012 KT CORRECTIONAL SECURITY OFFICER, ALLEN S 381.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 11/28/2012 KT CORRECTIONAL SECURITY OFFICER, ALLEN S 695.3 ROSACEA 11/28/2012 KT CORRECTIONAL SECURITY OFFICER, ALLEN S 381.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 11/28/2012 KT CORRECTIONAL SECURITY OFFICER, ALLEN S 695.3 ROSACEA 11/28/2012 KT CORRECTIONAL SECURITY OFFICER, ALLEN S 381.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 11/28/2012 KT CORRECTIONAL SECURITY OFFICER, ALLEN S 695.3 ROSACEA 11/28/2012 KT CORRECTIONAL SECURITY OFFICER, ALLEN S 381.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 11/28/2012 ALLEN MERAZ APRN S 695.3 [place] 02/04/2013 719.43 PAIN- WRIST 02/04/2013 V07.4 HORMONE REPLACEMENT THERAPY (POSTMENOPAUSAL) 02/04/2013 719.43 PAIN- WRIST 02/04/2013 V07.4 HORMONE REPLACEMENT THERAPY (POSTMENOPAUSAL) 02/04/2013 719.43 PAIN- WRIST 02/04/2013 V07.4 HORMONE REPLACEMENT THERAPY (POSTMENOPAUSAL) 02/04/2013 ALLEN MERAZ APRN S 719.43 PAIN- WRIST 02/04/2013 ALLEN MERAZ APRN S V07.4 HORMONE REPLACEMENT THERAPY (POSTMENOPAUSAL) 02/04/2013 [place] DO EDU K 719.43 PAIN- WRIST 02/04/2013 [place] DO, EDU K V07.4 HORMONE REPLACEMENT THERAPY (POSTMENOPAUSAL) 02/04/2013 MAYRA MARCUS APRN A 719.43 PAIN- WRIST 02/04/2013 MAYRA MARCUS APRN A V07.4 HORMONE REPLACEMENT THERAPY (POSTMENOPAUSAL) 02/04/2013 JORDAN PARIS APRN 719.43 PAIN- WRIST 02/04/2013 JORDAN PARIS APRN V07.4 HORMONE REPLACEMENT THERAPY (POSTMENOPAUSAL) 02/04/2013 ALLEN MERAZ APRN S 719.43 PAIN- WRIST 02/04/2013 ALLEN MERAZ APRN S V07.4 HORMONE REPLACEMENT THERAPY (POSTMENOPAUSAL) 02/04/2013 ALY BANKS APRN R 719.43 PAIN- WRIST 02/04/2013 MAGI BANKS APRNINA R V07.4 HORMONE REPLACEMENT THERAPY (POSTMENOPAUSAL) 02/04/2013 ALLEN MERAZ APRN S 719.43 PAIN- WRIST 02/04/2013 ALLEN MERAZ APRN S V07.4 HORMONE REPLACEMENT THERAPY (POSTMENOPAUSAL) 02/04/2013 KEYUR MERAZ APRNA S 719.43 PAIN- WRIST 02/04/2013 ALLEN MERAZ APRN S V07.4 HORMONE REPLACEMENT THERAPY (POSTMENOPAUSAL) 02/04/2013 KEYUR MERAZ APRNA S 719.43 PAIN- WRIST 02/04/2013 ALLEN MERAZ APRN S V07.4 HORMONE REPLACEMENT THERAPY (POSTMENOPAUSAL) 02/04/2013 KT CORRECTIONAL SECURITY OFFICER, ALLEN S 719.43 PAIN- WRIST 02/04/2013 KT CORRECTIONAL SECURITY OFFICER, ALLEN S V07.4 HORMONE REPLACEMENT THERAPY (POSTMENOPAUSAL) 02/04/2013 KT CORRECTIONAL SECURITY OFFICER, ALLEN S 719.43 PAIN- WRIST 02/04/2013 KT CORRECTIONAL SECURITY OFFICER, ALLEN S V07.4 HORMONE REPLACEMENT THERAPY (POSTMENOPAUSAL) 02/04/2013 KT CORRECTIONAL SECURITY OFFICER, ALLEN S 719.43 PAIN- WRIST 02/04/2013 KT CORRECTIONAL SECURITY OFFICER, ALLEN S V07.4 HORMONE REPLACEMENT THERAPY (POSTMENOPAUSAL) 02/04/2013 KT CORRECTIONAL SECURITY OFFICER, ALLEN S 719.43 PAIN- WRIST 02/04/2013 KT CORRECTIONAL SECURITY OFFICER, ALLEN S V07.4 HORMONE REPLACEMENT THERAPY (POSTMENOPAUSAL) 02/04/2013 KT CORRECTIONAL SECURITY OFFICER, ALLEN S 719.43 PAIN- WRIST 02/04/2013 KT CORRECTIONAL SECURITY OFFICER, ALLEN S V07.4 HORMONE REPLACEMENT THERAPY (POSTMENOPAUSAL) 02/04/2013 KT CORRECTIONAL SECURITY OFFICER, ALLEN S 719.43 PAIN- WRIST 02/04/2013 KT CORRECTIONAL SECURITY OFFICER, ALLEN S V07.4 HORMONE REPLACEMENT THERAPY (POSTMENOPAUSAL) 02/18/2013 813.42 OTHER CLOSED FRACTURES OF DISTAL END OF RADIUS (ALONE) 02/18/2013 813.42 OTHER CLOSED FRACTURES OF DISTAL END OF RADIUS (ALONE) 02/18/2013 KT ENGLE ALLEN S 813.42 OTHER CLOSED FRACTURES OF DISTAL END OF RADIUS (ALONE) 02/18/2013 EDU [place]OUGHBY DO 813.42 OTHER CLOSED FRACTURES OF DISTAL END OF RADIUS (ALONE) 02/18/2013 MAYRA MARCUS APRN 813.42 OTHER CLOSED FRACTURES OF DISTAL END OF RADIUS (ALONE) 02/18/2013 JORDAN PARIS APRN 813.42 OTHER CLOSED FRACTURES OF DISTAL END OF RADIUS (ALONE) 02/18/2013 BILLY MERAZ APRNNDA S 813.42 OTHER CLOSED FRACTURES OF DISTAL END OF RADIUS (ALONE) 02/18/2013 ALY BANKS APRN 813.42 OTHER CLOSED FRACTURES OF DISTAL END OF RADIUS (ALONE) 02/18/2013 KT CORRECTIONAL SECURITY OFFICER, ALLEN S 813.42 OTHER CLOSED FRACTURES OF DISTAL END OF RADIUS (ALONE) 02/18/2013 KT CORRECTIONAL SECURITY OFFICER, ALLEN S 813.42 OTHER CLOSED FRACTURES OF DISTAL END OF RADIUS (ALONE) 02/18/2013 KT CORRECTIONAL SECURITY OFFICER, ALLEN S 813.42 OTHER CLOSED FRACTURES OF DISTAL END OF RADIUS (ALONE) 02/18/2013 KT CORRECTIONAL SECURITY OFFICER, ALLEN S 813.42 OTHER CLOSED FRACTURES OF DISTAL END OF RADIUS (ALONE) 02/18/2013 KT CORRECTIONAL SECURITY OFFICER, ALLEN S 813.42 OTHER CLOSED FRACTURES OF DISTAL END OF RADIUS (ALONE) 02/18/2013 KT CORRECTIONAL SECURITY OFFICER, ALLEN S 813.42 OTHER CLOSED FRACTURES OF DISTAL END OF RADIUS (ALONE) 02/18/2013 KT CORRECTIONAL SECURITY OFFICER, ALLEN S 813.42 OTHER CLOSED FRACTURES OF DISTAL END OF RADIUS (ALONE) 02/18/2013 KT CORRECTIONAL SECURITY OFFICER, ALLEN S 813.42 OTHER CLOSED FRACTURES OF DISTAL END OF RADIUS (ALONE) 02/18/2013 KT CORRECTIONAL SECURITY OFFICER, ALLEN S 813.42 OTHER CLOSED FRACTURES OF DISTAL END OF RADIUS (ALONE) 03/06/2013 V58.69 MEDICATION HIGH RISK 03/06/2013 KT CORRECTIONAL SECURITY OFFICER, ALLEN S V58.69 MEDICATION HIGH RISK 03/06/2013 EDU WILLOUGHBY DO V58.69 MEDICATION HIGH RISK 03/06/2013 AMRIT ENGLE, MAYRA A V58.69 MEDICATION HIGH RISK 03/06/2013 [place] ENGLE JORDAN AR V58.69 MEDICATION HIGH RISK 03/06/2013 KT CORRECTIONAL SECURITY OFFICER, ALLEN S V58.69 MEDICATION HIGH RISK 03/06/2013 ALY BANKS APRN R V58.69 MEDICATION HIGH RISK 03/06/2013 KT CORRECTIONAL SECURITY OFFICER, ALLEN S V58.69 MEDICATION HIGH RISK 03/06/2013 KT CORRECTIONAL SECURITY OFFICER, ALLEN S V58.69 MEDICATION HIGH RISK 03/06/2013 KT CORRECTIONAL SECURITY OFFICER, ALLEN S V58.69 MEDICATION HIGH RISK 03/06/2013 KT CORRECTIONAL SECURITY OFFICER, ALLEN S V58.69 MEDICATION HIGH RISK 03/06/2013 KT CORRECTIONAL SECURITY OFFICER, ALLEN S V58.69 MEDICATION HIGH RISK 03/06/2013 BILLY MERAZ APRNNDA S V58.69 MEDICATION HIGH RISK 03/06/2013 BILLY MERAZ APRNNDA S V58.69 MEDICATION HIGH RISK 03/06/2013 BILLY MERAZ APRNNDA S V58.69 MEDICATION HIGH RISK 03/06/2013 BILLY MERAZ APRNNDA S V58.69 MEDICATION HIGH RISK 06/19/2013 BILLY MERAZ APRNNDA S V04.81 FLU SHOT 06/19/2013 CASE RIVERA EDU K V04.81 FLU SHOT 06/19/2013 MAYRA MARCUS APRN A V04.81 FLU SHOT 06/19/2013 JORDAN PARIS APRN V04.81 FLU SHOT 06/19/2013 BILLY MERAZ APRNNDA S V04.81 FLU SHOT 06/19/2013 ALY BANKS APRN V04.81 FLU SHOT 06/19/2013 BILLY MERAZ APRNNDA S V04.81 FLU SHOT 06/19/2013 BILLY MERAZ APRNNDA S V04.81 FLU SHOT 06/19/2013 BILLY MERAZ APRNNDA S V04.81 FLU SHOT 06/19/2013 BILLY MERAZ APRNNDA S V04.81 FLU SHOT 06/19/2013 BILLY MERAZ APRNNDA S V04.81 FLU SHOT 06/19/2013 BILLY MERAZ APRNNDA S V04.81 FLU SHOT 06/19/2013 BILLY MERAZ APRNNDA S V04.81 FLU SHOT 06/19/2013 BILLY MERAZ APRNNDA S V04.81 FLU SHOT 06/19/2013 BILLY MERAZ APRNNDA S V04.81 FLU SHOT 08/30/2013 MAYRA MARCUS APRN A 627.1 POSTMENOPAUSAL BLEEDING 08/30/2013 MAYRA MARCUS APRN A V16.0 FAMILY HISTORY OF MALIGNANT NEOPLASM OF GASTROINTESTINAL TRACT 08/30/2013 MAYRA MARCUS APRN A V76.47 VAGINAL PAP SMEAR SCREENING 08/30/2013 MAYRA MARCUS APRN A V76.51 COLON CANCER SCREENING 08/30/2013 WELL[place] ENGLE JORDAN JOYNER 627.1 POSTMENOPAUSAL BLEEDING 08/30/2013 [place] CORRECTIONAL SECURITY OFFICER, JORDAN JOYNER V16.0 FAMILY HISTORY OF MALIGNANT NEOPLASM OF GASTROINTESTINAL TRACT 08/30/2013 [place] CORRECTIONAL SECURITY OFFICER, JORDAN JOYNER V76.47 VAGINAL PAP SMEAR SCREENING 08/30/2013 [place] CORRECTIONAL SECURITY OFFICER, JORDAN JOYNER V76.51 COLON CANCER SCREENING 08/30/2013 KT CORRECTIONAL SECURITY OFFICER, ALLEN S 627.1 POSTMENOPAUSAL BLEEDING 08/30/2013 KT CORRECTIONAL SECURITY OFFICER, ALLEN S V16.0 FAMILY HISTORY OF MALIGNANT NEOPLASM OF GASTROINTESTINAL TRACT 08/30/2013 KT CORRECTIONAL SECURITY OFFICER, ALLEN S V76.47 VAGINAL PAP SMEAR SCREENING 08/30/2013 KT CORRECTIONAL SECURITY OFFICER, ALLEN S V76.51 COLON CANCER SCREENING 08/30/2013 JOCELYN CORRECTIONAL SECURITY OFFICER, ALY R 627.1 POSTMENOPAUSAL BLEEDING 08/30/2013 JOCELYN CORRECTIONAL SECURITY OFFICER, ALY R V16.0 FAMILY HISTORY OF MALIGNANT NEOPLASM OF GASTROINTESTINAL TRACT 08/30/2013 JOCELYN CORRECTIONAL SECURITY OFFICER, ALY R V76.47 VAGINAL PAP SMEAR SCREENING 08/30/2013 JOCELYN CORRECTIONAL SECURITY OFFICER, ALY R V76.51 COLON CANCER SCREENING 08/30/2013 KT CORRECTIONAL SECURITY OFFICER, ALLEN S 627.1 POSTMENOPAUSAL BLEEDING 08/30/2013 KT CORRECTIONAL SECURITY OFFICER, ALLEN S V16.0 FAMILY HISTORY OF MALIGNANT NEOPLASM OF GASTROINTESTINAL TRACT 08/30/2013 KT CORRECTIONAL SECURITY OFFICER, ALLEN S V76.47 VAGINAL PAP SMEAR SCREENING 08/30/2013 KT CORRECTIONAL SECURITY OFFICER, ALLEN S V76.51 COLON CANCER SCREENING 08/30/2013 KT CORRECTIONAL SECURITY OFFICER, ALLEN S 627.1 POSTMENOPAUSAL BLEEDING 08/30/2013 KT CORRECTIONAL SECURITY OFFICER, ALLEN S V16.0 FAMILY HISTORY OF MALIGNANT NEOPLASM OF GASTROINTESTINAL TRACT 08/30/2013 KT CORRECTIONAL SECURITY OFFICER, ALLEN S V76.47 VAGINAL PAP SMEAR SCREENING 08/30/2013 KT CORRECTIONAL SECURITY OFFICER, ALLEN S V76.51 COLON CANCER SCREENING 08/30/2013 KT CORRECTIONAL SECURITY OFFICER, ALLEN S 627.1 POSTMENOPAUSAL BLEEDING 08/30/2013 KT CORRECTIONAL SECURITY OFFICER, ALLEN S V16.0 FAMILY HISTORY OF MALIGNANT NEOPLASM OF GASTROINTESTINAL TRACT 08/30/2013 KT CORRECTIONAL SECURITY OFFICER, ALLEN S V76.47 VAGINAL PAP SMEAR SCREENING 08/30/2013 KT CORRECTIONAL SECURITY OFFICER, ALLEN S V76.51 COLON CANCER SCREENING 08/30/2013 KT CORRECTIONAL SECURITY OFFICER, ALLEN S 627.1 POSTMENOPAUSAL BLEEDING 08/30/2013 KT CORRECTIONAL SECURITY OFFICER, ALLEN S V16.0 FAMILY HISTORY OF MALIGNANT NEOPLASM OF GASTROINTESTINAL TRACT 08/30/2013 KT CORRECTIONAL SECURITY OFFICER, ALLEN S V76.47 VAGINAL PAP SMEAR SCREENING 08/30/2013 KT CORRECTIONAL SECURITY OFFICER, ALLEN S V76.51 COLON CANCER SCREENING 08/30/2013 KT CORRECTIONAL SECURITY OFFICER, ALLEN S 627.1 POSTMENOPAUSAL BLEEDING 08/30/2013 KT CORRECTIONAL SECURITY OFFICER, ALLEN S V16.0 FAMILY HISTORY OF MALIGNANT NEOPLASM OF GASTROINTESTINAL TRACT 08/30/2013 KT CORRECTIONAL SECURITY OFFICER, ALLEN S V76.47 VAGINAL PAP SMEAR SCREENING 08/30/2013 KT CORRECTIONAL SECURITY OFFICER, ALLEN S V76.51 COLON CANCER SCREENING 08/30/2013 KT CORRECTIONAL SECURITY OFFICER, ALLEN S 627.1 POSTMENOPAUSAL BLEEDING 08/30/2013 KT CORRECTIONAL SECURITY OFFICER, ALLEN S V16.0 FAMILY HISTORY OF MALIGNANT NEOPLASM OF GASTROINTESTINAL TRACT 08/30/2013 KT CORRECTIONAL SECURITY OFFICER, ALLEN S V76.47 VAGINAL PAP SMEAR SCREENING 08/30/2013 KT CORRECTIONAL SECURITY OFFICER, ALLEN S V76.51 COLON CANCER SCREENING 08/30/2013 KT CORRECTIONAL SECURITY OFFICER, ALLEN S 627.1 POSTMENOPAUSAL BLEEDING 08/30/2013 KT CORRECTIONAL SECURITY OFFICER, ALLEN S V16.0 FAMILY HISTORY OF MALIGNANT NEOPLASM OF GASTROINTESTINAL TRACT 08/30/2013 KT CORRECTIONAL SECURITY OFFICER, ALLEN S V76.47 VAGINAL PAP SMEAR SCREENING 08/30/2013 KT CORRECTIONAL SECURITY OFFICER, ALLEN S V76.51 COLON CANCER SCREENING 08/30/2013 KT CORRECTIONAL SECURITY OFFICER, ALLEN S 627.1 POSTMENOPAUSAL BLEEDING 08/30/2013 KT CORRECTIONAL SECURITY OFFICER, ALLEN S V16.0 FAMILY HISTORY OF MALIGNANT NEOPLASM OF GASTROINTESTINAL TRACT 08/30/2013 KT CORRECTIONAL SECURITY OFFICER, ALLEN S V76.47 VAGINAL PAP SMEAR SCREENING 08/30/2013 KT CORRECTIONAL SECURITY OFFICER, ALLEN S V76.51 COLON CANCER SCREENING 08/30/2013 KT CORRECTIONAL SECURITY OFFICER, ALLEN S 627.1 POSTMENOPAUSAL BLEEDING 08/30/2013 KT CORRECTIONAL SECURITY OFFICER, ALLEN S V16.0 FAMILY HISTORY OF MALIGNANT NEOPLASM OF GASTROINTESTINAL TRACT 08/30/2013 KT CORRECTIONAL SECURITY OFFICER, ALLEN S V76.47 VAGINAL PAP SMEAR SCREENING 08/30/2013 KT CORRECTIONAL SECURITY OFFICER, ALLEN S V76.51 COLON CANCER SCREENING 11/06/2013 KT CORRECTIONAL SECURITY OFFICER, ALLEN S 314.00 ADD 11/06/2013 JOCELYN CORRECTIONAL SECURITY OFFICER, ALY R 314.00 ADD 11/06/2013 KT CORRECTIONAL SECURITY OFFICER, ALLEN S 314.00 ADD 11/06/2013 KT CORRECTIONAL SECURITY OFFICER, ALLEN S 314.00 ADD 11/06/2013 KT CORRECTIONAL SECURITY OFFICER, ALLEN S 314.00 ADD 11/06/2013 KT CORRECTIONAL SECURITY OFFICER, ALLEN S 314.00 ADD 11/06/2013 KT CORRECTIONAL SECURITY OFFICER, ALLEN S 314.00 ADD 11/06/2013 KT CORRECTIONAL SECURITY OFFICER, ALLEN S 314.00 ADD 11/06/2013 KT CORRECTIONAL SECURITY OFFICER, ALLEN S 314.00 ADD 11/06/2013 KT CORRECTIONAL SECURITY OFFICER, ALLEN S 314.00 ADD 11/06/2013 KT CORRECTIONAL SECURITY OFFICER, ALLEN S 314.00 ADD 12/04/2013 JOCELYN CORRECTIONAL SECURITY OFFICER, ALY R 787.91 DIARRHEA 12/04/2013 KT CORRECTIONAL SECURITY OFFICER, ALLEN S 787.91 DIARRHEA 12/04/2013 KT CORRECTIONAL SECURITY OFFICER, ALLEN S 787.91 DIARRHEA 12/04/2013 KT CORRECTIONAL SECURITY OFFICER, ALLEN S 787.91 DIARRHEA 12/04/2013 KT CORRECTIONAL SECURITY OFFICER, ALLEN S 787.91 DIARRHEA 12/04/2013 KT CORRECTIONAL SECURITY OFFICER, ALLEN S 787.91 DIARRHEA 12/04/2013 KT CORRECTIONAL SECURITY OFFICER, ALLEN S 787.91 DIARRHEA 12/04/2013 KT CORRECTIONAL SECURITY OFFICER, ALLEN S 787.91 DIARRHEA 12/04/2013 KT CORRECTIONAL SECURITY OFFICER, ALLEN S 787.91 DIARRHEA 12/04/2013 KT CORRECTIONAL SECURITY OFFICER, ALLEN S 787.91 DIARRHEA 12/30/2013 KT CORRECTIONAL SECURITY OFFICER, ALLEN S 461.0 ACUTE MAXILLARY SINUSITIS 12/30/2013 KT CORRECTIONAL SECURITY OFFICER, ALLEN S 461.0 ACUTE MAXILLARY SINUSITIS 12/30/2013 KT CORRECTIONAL SECURITY OFFICER, ALLEN S 461.0 ACUTE MAXILLARY SINUSITIS 12/30/2013 KT CORRECTIONAL SECURITY OFFICER, ALLEN S 461.0 ACUTE MAXILLARY SINUSITIS 12/30/2013 KT CORRECTIONAL SECURITY OFFICER, ALLEN S 461.0 ACUTE MAXILLARY SINUSITIS 12/30/2013 KT CORRECTIONAL SECURITY OFFICER, ALLEN S 461.0 ACUTE MAXILLARY SINUSITIS 12/30/2013 KT CORRECTIONAL SECURITY OFFICER, ALLEN S 461.0 ACUTE MAXILLARY SINUSITIS 12/30/2013 KT CORRECTIONAL SECURITY OFFICER, ALLEN S 461.0 ACUTE MAXILLARY SINUSITIS 12/30/2013 KT CORRECTIONAL SECURITY OFFICER, ALLEN S 461.0 ACUTE MAXILLARY SINUSITIS 03/03/2014 KT CORRECTIONAL SECURITY OFFICER, ALLEN S 465.9 UPPER RESPIRATORY INFECTION 03/03/2014 KT CORRECTIONAL SECURITY OFFICER, ALLEN S 465.9 UPPER RESPIRATORY INFECTION 03/03/2014 KT CORRECTIONAL SECURITY OFFICER, ALLEN S 465.9 UPPER RESPIRATORY INFECTION 03/03/2014 KT CORRECTIONAL SECURITY OFFICER, ALLEN S 465.9 UPPER RESPIRATORY INFECTION 03/03/2014 KT CORRECTIONAL SECURITY OFFICER, ALLEN S 465.9 UPPER RESPIRATORY INFECTION 03/03/2014 KT CORRECTIONAL SECURITY OFFICER, ALLEN S 465.9 UPPER RESPIRATORY INFECTION 03/03/2014 KT CORRECTIONAL SECURITY OFFICER, ALLEN S 465.9 UPPER RESPIRATORY INFECTION 03/03/2014 KT CORRECTIONAL SECURITY OFFICER, ALLEN S 465.9 UPPER RESPIRATORY INFECTION 05/16/2014 KT CORRECTIONAL SECURITY OFFICER, ALLEN S 493.90 ASTHMA UNSPECIFIED 05/16/2014 KT CORRECTIONAL SECURITY OFFICER, ALLEN S 719.47 PAIN- ANKLE 05/16/2014 KT CORRECTIONAL SECURITY OFFICER, ALLEN S 824.8 UNSPECIFIED FRACTURE OF ANKLE CLOSED 05/16/2014 KT CORRECTIONAL SECURITY OFFICER, ALLEN S 493.90 ASTHMA UNSPECIFIED 05/16/2014 KT CORRECTIONAL SECURITY OFFICER, ALLEN S 719.47 PAIN- ANKLE 05/16/2014 KT CORRECTIONAL SECURITY OFFICER, ALLEN S 824.8 UNSPECIFIED FRACTURE OF ANKLE CLOSED 05/16/2014 KT CORRECTIONAL SECURITY OFFICER, ALLEN S 493.90 ASTHMA UNSPECIFIED 05/16/2014 KT CORRECTIONAL SECURITY OFFICER, ALLEN S 719.47 PAIN- ANKLE 05/16/2014 KT CORRECTIONAL SECURITY OFFICER, ALLEN S 824.8 UNSPECIFIED FRACTURE OF ANKLE CLOSED 05/16/2014 KT CORRECTIONAL SECURITY OFFICER, ALLEN S 493.90 ASTHMA UNSPECIFIED 05/16/2014 KT CORRECTIONAL SECURITY OFFICER, ALLEN S 719.47 PAIN- ANKLE 05/16/2014 KT CORRECTIONAL SECURITY OFFICER, ALLEN S 824.8 UNSPECIFIED FRACTURE OF ANKLE CLOSED 05/16/2014 KT CORRECTIONAL SECURITY OFFICER, ALLEN S 493.90 ASTHMA UNSPECIFIED 05/16/2014 KT CORRECTIONAL SECURITY OFFICER, ALLEN S 719.47 PAIN- ANKLE 05/16/2014 TK CORRECTIONAL SECURITY OFFICER, ALLEN S 824.8 UNSPECIFIED FRACTURE OF ANKLE CLOSED 05/16/2014 KT CORRECTIONAL SECURITY OFFICER, ALLEN S 493.90 ASTHMA UNSPECIFIED 05/16/2014 KT CORRECTIONAL SECURITY OFFICER, ALLEN S 719.47 PAIN- ANKLE 05/16/2014 KT CORRECTIONAL SECURITY OFFICER, ALLEN S 824.8 UNSPECIFIED FRACTURE OF ANKLE CLOSED 05/16/2014 KT CORRECTIONAL SECURITY OFFICER, ALLEN S 493.90 ASTHMA UNSPECIFIED 05/16/2014 KT CORRECTIONAL SECURITY OFFICER, ALLEN S 719.47 PAIN- ANKLE 05/16/2014 KT CORRECTIONAL SECURITY OFFICER, ALLEN S 824.8 UNSPECIFIED FRACTURE OF ANKLE CLOSED 07/14/2014 KT ENGLE, ALLEN S 300.4 DYSTHYMIC DISORDER 07/14/2014 BILLY MERAZ APRNNDA S 300.4 DYSTHYMIC DISORDER 07/14/2014 KT ENGLE, ALLEN S 300.4 DYSTHYMIC DISORDER 07/14/2014 KT ENGLE ALLEN S 300.4 DYSTHYMIC DISORDER 11/03/2014 BILLY MERAZ APRNNDA S 054.9 HERPES SIMPLEX WITHOUT COMPLICATION 11/03/2014 KT ENGLE ALLEN S 054.9 HERPES SIMPLEX WITHOUT COMPLICATION 11/23/2014 KT ENGLE, ALLEN S 724.5 BACKACHE UNSPECIFIED Procedures Code [place] [address] PSYCH PHARM MGMT 07/15/2012 J2930 SOLUMEDROL INJ 04/15/2013 13834 THERAPUTIC INJ SQ/IM 04/15/2013 44379 THERAPUTIC INJ SQ/IM 07/17/2013 J0696 ROCEPHIN INJ 1 g 07/17/2013 J2001 LIDOCAINE INJECTION 07/17/2013 18995 SLEEP STUDY 07/17/2013 97081 PAP SMEAR 08/30/2013 GENERAL S JOLEEN LEOMNS 08/30/2013 Q0091 PAP SMEAR OBTAIN SMEAR 08/30/2013 44703 HEMOCCULT 08/30/2013 43388 XRAY ANKLE L COMP MIN, 3 VIEWS 05/16/2014 OrthopedAkira Bowers 05/16/2014 73002 XRAY ANKLE L, 2 VIEW 06/15/2014 39362 ROUTINE VENIPUNCTURE 08/19/2014 22935 CBC 08/19/2014 [id number] GFR CALC (RESULT ONLY) 08/19/2014 87698 CMP 08/19/2014 87684 LIPID PANEL 08/19/2014 36635 TSH 08/19/2014 Results Test Result Range CBC - 10/08/17 08:41 WHITE BLOOD CELL COUNT 5.3 Thousand/uL 3.8-10.8 RED BLOOD CELL COUNT 5.12 Million/uL 3.80-5.10 HEMOGLOBIN 14.6 g/dL 11.7-15.5 HEMATOCRIT 43.9 % 35.0-45.0 MCV 85.7 fL 80.0-100.0 MCH 28.5 pg 27.0-33.0 MCHC 33.3 g/dL 32.0-36.0 RDW 12.6 % 11.0-15.0 PLATELET COUNT 243 Thousand/uL 140-400 MPV 10.2 fL 7.5-12.5 ABSOLUTE NEUTROPHILS 2841 cells/uL 4667-2283 ABSOLUTE LYMPHOCYTES 1882 cells/uL 850-3900 ABSOLUTE MONOCYTES 419 cells/uL 200-950 ABSOLUTE EOSINOPHILS 111 cells/uL 15-500 ABSOLUTE BASOPHILS 48 cells/uL 0-200 NEUTROPHILS 53.6 % NRG LYMPHOCYTES 35.5 % NRG MONOCYTES 7.9 % NRG EOSINOPHILS 2.1 % NRG BASOPHILS 0.9 % NRG Encounters ACCT No. Visit Date/Time Discharge Status Pt. Type Provider Facility Loc./Unit Complaint [id number] 11/23/2014 12:21:00 11/23/2014 23:59:59 CLS Outpatient TK CORRECTIONAL SECURITY OFFICERALLEN S [id number] 11/03/2014 17:41:00 11/03/2014 23:59:59 CLS Outpatient KT CORRECTIONAL SECURITY OFFICERKEYURA S [id number] 08/19/2014 11:05:00 08/19/2014 23:59:59 CLS Outpatient KT CORRECTIONAL SECURITY OFFICERKEYURA S [id number] 07/14/2014 17:54:00 07/14/2014 23:59:59 CLS Outpatient KT CORRECTIONAL SECURITY OFFICERKEYURA S [id number] 06/16/2014 17:35:00 06/16/2014 23:59:59 CLS Outpatient KT CORRECTIONAL SECURITY OFFICERKEYURA S [id number] 06/15/2014 12:16:00 06/15/2014 23:59:59 CLS Outpatient KT CORRECTIONAL SECURITY OFFICERBILLYALLEN S [id number] 05/16/2014 08:49:00 05/16/2014 23:59:59 CLS Outpatient KT CORRECTIONAL SECURITY OFFICERKEYURA S [id number] 03/03/2014 17:37:00 03/03/2014 23:59:59 CLS Outpatient KT CORRECTIONAL SECURITY OFFICERKEYURA S [id number] 12/30/2013 17:23:00 12/30/2013 23:59:59 CLS Outpatient KT CORRECTIONAL SECURITY OFFICERKEYURA S [id number] 12/04/2013 09:37:00 12/04/2013 23:59:59 CLS Outpatient JOCELYN ONIEL ALY Nuñez [id number] 11/06/2013 11:03:00 11/06/2013 23:59:59 CLS Outpatient KT CORRECTIONAL SECURITY OFFICERKEYUR RosarioA S [id number] 10/13/2013 13:01:00 10/13/2013 23:59:59 CLS Outpatient JORDAN PARIS APRN [id number] 08/30/2013 17:44:00 08/30/2013 23:59:59 CLS Outpatient MAYRA MARCUS APRN Rolan [id number] 07/17/2013 11:10:00 07/17/2013 23:59:59 CLS Outpatient EDU WILLOUGHBY DO [id number] 04/15/2013 18:36:00 04/15/2013 23:59:59 CLS Outpatient ALLEN MERAZ APRN [id number] 10/22/2012 17:31:00 10/22/2012 23:59:59 CLS Outpatient [id number] 10/03/2012 10:57:00 10/03/2012 23:59:59 CLS Outpatient MURIEL POST DO [id number] 09/03/2012 15:54:00 09/03/2012 23:59:59 [place] [id number] 07/11/2012 08:50:00 07/11/2012 23:59:59 CLS Outpatient [id number] 07/11/2012 08:50:00 07/11/2012 23:59:59 CLS Outpatient [id number] 03/06/2013 09:51:00 Document Registration [id number] 02/18/2013 13:18:00 Document Registration [id number] 02/04/2013 17:25:00 Document Registration [id number] 12/26/2012 09:34:00 Document Registration [id number] 11/17/2013 07:22:00 11/17/2013 23:59:59 CLS Outpatient [id number] 10/08/2013 05:12:00 10/08/2013 06:52:00 DIS Emergency [id number] 09/27/2013 20:05:00 09/28/2013 05:50:00 DIS Outpatient [id number] 04/05/2013 17:05:00 04/05/2013 23:59:59 CLS Outpatient [id number] 03/27/2013 09:31:00 03/27/2013 23:59:59 CLS Outpatient [id number] 01/14/2013 17:54:00 01/14/2013 23:59:59 CLS Outpatient [id number] 08/20/2018 17:30:00 08/20/2018 23:59:59 CLS Outpatient ALLEN MERAZ APRN [facility] [id number] 10/08/2017 08:40:00 Document Registration
[2018-09-27] MEDS ORDERED: METH27TA4 PO (19:44)
[2018-09-27] MEDS ORDERED: HYDROcodone/APAP 5 MG/325 MG (LORTAB) TAB PO ONE (20:45)
[2018-09-27] MEDS ORDERED: TETANUS,DIPTH,PERTUSS P/F (BOOSTRIX) 0.5 ML VIAL IM ONE (20:45)
--- NOTE | 2018-09-27 21:08 | ED Integumentary General ---
General Chief Complaint: Laceration Stated Complaint: L HAND FINGER LAC Nursing Triage Note: PT REPORTS SHE CUT HER LEFT 5TH FINGER WITH LEGO AT HOME. Source: patient Exam Limitations: no limitations History of Present Illness Date Seen by Provider: Sep 27, 2018 Time Seen by Provider: 20:30 Initial Comments 57 year old female who present to the emergency room with laceration to left fifth finger after she pinched it between two lego's just prior to arrival. She has a 1cm superficial laceration to the palmar surface of the finger. Timing/Duration: just prior to arrival Associated Symptoms: denies symptoms Allergies and Home Medications Allergies Coded Allergies: latex (Unverified Allergy, Mild, 10/28/07) monosodium glutamate (Unverified Allergy, Mild, 10/28/07) Uncoded Allergies: SULFA (Allergy, Mild, RASH, 03/14/10) Home Medications Fluticasone Propionate 16 Gm [place], 2 SPRAYS NSEACH DAILY, (Reported) Methylphenidate HCl 27 Mg Tab.er.24, 27 MG PO DAILY, (Reported) Patient Home Medication List Home Medication List Reviewed: Yes Review of Systems Review of Systems Constitutional: no symptoms reported, see HPI Skin: see HPI, other All Other Systems Reviewed Negative Unless Noted: Yes Past Hxbupcc-Vyjgdw-Fdzrqd Hx Past Med/Social Hx: Reviewed Nursing Past Med/Soc Hx Patient Social History Alcohol Use: Denies Use Recreational Drug Use: No Smoking Status: Never a Smoker Recent Foreign Travel: No Contact w/Someone Who Travel: No Recent Infectious Disease Expo: No Recent Hopitalizations: No Immunizations Up To Date Date of Influenza Vaccine: Jun 30, 2013 Seasonal Allergies Seasonal Allergies: Yes Past Medical History Surgeries: Yes 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 Respiratory: Yes Asthma Cardiac: No Neurological: No Reproductive Disorders: No 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 Sexually Transmitted Disease: No HIV/AIDS: No Gastrointestinal: Yes Gastroesophageal Reflux Musculoskeletal: No Endocrine: No Cancer: No Psychosocial: Yes Anxiety, Depression Integumentary: No Blood Disorders: No Adverse Reaction/Blood Tranf: No Family Medical History Reviewed Nursing Family Hx Physical Exam Vital Signs Vital Signs - First Documented 09/27/18 19:40 Temp 96.5 Pulse 94 Resp 16 B/P (MAP) 183/75 (111) Pulse Ox 96 Capillary Refill : Less Than 3 Seconds General Appearance: WD/WN, no apparent distress Cardiovascular: normal peripheral pulses, regular rate, rhythm, no edema, no gallop, no JVD, no murmur Respiratory: chest non-tender, lungs clear, normal breath sounds, no respiratory distress, no accessory muscle use Extremities: normal capillary refill Skin: normal color, warm/dry Skin Problem Location: upper extremities (left fifth finger) Skin Problem Character: linear Procedures/Interventions Wound Location: Upper Extremities (left 5th finger cespedes surface ) Other Wound Location see images Wound Length (cm): 1 Wound's Depth, Shape: superficial, linear Irrigated w/ Saline (ccs): 100 Other Closure Supply: Wound Adhesive Progress Wound was cleaned and irrigated with normal saline. Finger tourniquet was applied to control bleeding. Wound was approximated and closed with skin adhesive. Finger tourniquet was removed. Progress/Results/Core Measures Results/Orders My Orders Orders - ZENY HAMPTON Dipht,Pertnabeel(Acell),Tet Adult (Boostrix (09/27/18 20:45) Hydrocodone/Apap 5/325 Tablet (Lortab 5 (09/27/18 20:45) Medications Given in ED Vital Signs/I&O 09/27/18 09/27/18 19:40 21:10 Temp 96.5 96.5 Pulse 94 92 Resp 16 16 B/P (MAP) 183/75 (111) 145/70 (95) Pulse Ox 96 96 Blood Pressure Mean: 111 Departure Impression Primary Impression: Laceration Disposition: 01 HOME, SELF-CARE Condition: Stable/Unchanged Departure-Patient Inst. Decision time for Depature: 21:08 Referrals: [facility] (PCP) Primary Care Physician Patient Instructions: Laceration Repair With Glue (DC) Add. Discharge Instructions: Let the glue fall off on its own. Watch for signs of infection such as increased redness, swelling, drainage, pain. You may use ibuprofen and Tylenol as directed by the bottle for pain relief. Follow-up with your primary care as needed return back to the emergency room for worsening symptoms or concerns as needed. All discharge instructions reviewed with patient and/or family. Voiced understanding. ZENY HAMPTON Sep 27, 2018 21:08
[2018-09-27 21:10] VITALS: BP 145/70
== END 2018-09-27 21:11 | disposition home or self-care (01) ==
LOC: EDUNIT# 19:17 → ER 19:18
DX: S61.217A Laceration without foreign body of left little finger without damage to nail, initial encounter (principal); J45.909 Unspecified asthma, uncomplicated; K21.9 Gastro-esophageal reflux disease without esophagitis; F41.9 Anxiety disorder, unspecified; F32.9 Major depressive disorder, single episode, unspecified; Z23 Encounter for immunization; Z91.040 Latex allergy status; Z88.2 Allergy status to sulfonamides; Z88.8 Allergy status to other drugs, medicaments and biological substances; Z90.710 Acquired absence of both cervix and uterus; Z79.51 Long term (current) use of inhaled steroids; W26.9XXA Contact with unspecified sharp object(s), initial encounter; Y92.009 Unspecified place in unspecified non-institutional (private) residence as the place of occurrence of the external cause
CPT/HCPCS: 90715

== ENCOUNTER 2019-01-18 16:25 | Emergency (ER) | payer SELFPAY ==
[~2019-01-18] VITALS: Ht 165.1 cm; Wt 90.7 kg
[~2019-01-18 16:25] MED LIST changes: +METH27TA4 PO
--- OUTSIDE RECORDS SUMMARY | 2019-01-18 16:32 | XMS REPORT ---
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 [place] [address] 10 Apr, 2010 IMMUNIZATIONS No Known Immunizations SOCIAL HISTORY Never Assessed [place]AS[place] FOR [place] [place] VITAL SIGNS MEDICATIONS Unknown [...] History hypertension Medical History cervical dysplasia 12/2006 [place] [facility] History MRSA of skin 2008 Surgical History hysterectomy, total with bilateral salpingo-oophorectomy (BSO) 10/2007 Surgical History Left ankle fracture 04/2014 Hospitalization History bronchitis
--- OUTSIDE RECORDS SUMMARY | 2019-01-18 16:32 | XMS REPORT ---
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 HISTORY Never Assessed REASON FOR VISIT EMR-[facility] PLAN OF CARE VITAL SIGNS MEDICATIONS Unknown [...] History hypertension Medical History cervical dysplasia 12/2006 [facility] History MRSA of skin 2008 Surgical History hysterectomy, total with bilateral salpingo-oophorectomy (BSO) 10/2007 Surgical History Left ankle fracture 04/2014 Hospitalization History bronchitis
--- OUTSIDE RECORDS SUMMARY | 2019-01-18 16:33 | XMS REPORT ---
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 Immunizations SOCIAL HISTORY Never Assessed REASON FOR VISIT EMR-[facility] PLAN OF CARE VITAL SIGNS MEDICATIONS Unknown [...] History hypertension Medical History cervical dysplasia 12/2006 [place] [facility] History MRSA of skin 2008 Surgical History hysterectomy, total with bilateral salpingo-oophorectomy (BSO) 10/2007 Surgical History Left ankle fracture 04/2014 Hospitalization History bronchitis
--- OUTSIDE RECORDS SUMMARY | 2019-01-18 16:34 | XMS REPORT ---
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 SOCIAL HISTORY Never Assessed REASON FOR VISIT EMR-[facility] [place] [facility] PLAN OF CARE VITAL SIGNS MEDICATIONS [...] History hypertension Medical History cervical dysplasia 12/2006 [facility] History MRSA of skin 2008 Surgical History hysterectomy, total with bilateral salpingo-oophorectomy (BSO) 10/2007 Surgical History Left ankle fracture 04/2014 Hospitalization History bronchitis
--- OUTSIDE RECORDS SUMMARY | 2019-01-18 16:34 | XMS REPORT ---
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 HISTORY Never Assessed REASON FOR VISIT EMR-[facility] PLAN OF CARE VITAL SIGNS MEDICATIONS Unknown [...] History hypertension Medical History cervical dysplasia 12/2006 [place] [facility] History MRSA of skin 2008 Surgical History hysterectomy, total with bilateral salpingo-oophorectomy (BSO) 10/2007 Surgical History Left ankle fracture 04/2014 Hospitalization History bronchitis
--- OUTSIDE RECORDS SUMMARY | 2019-01-18 16:35 | XMS REPORT ---
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 IMMUNIZATIONS No Known Immunizations [...] History hypertension Medical History cervical dysplasia 12/2006 [place] [facility] History MRSA of skin 2008 Surgical History hysterectomy, total with bilateral salpingo-oophorectomy (BSO) 10/2007 Surgical History Left ankle fracture 04/2014 Hospitalization History bronchitis
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
--- OUTSIDE RECORDS SUMMARY | 2019-01-18 16:36 | XMS REPORT ---
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 [id number] [place] [address] 10 Apr, 2010 IMMUNIZATIONS No Known Immunizations SOCIAL HISTORY Never Assessed REASON FOR VISIT EMR-[facility] [place] PLAN OF CARE [...] History hypertension Medical History cervical dysplasia 12/2006 [facility] History MRSA of skin 2008 Surgical History hysterectomy, total with bilateral salpingo-oophorectomy (BSO) 10/2007 Surgical History Left ankle fracture 04/2014 Hospitalization History bronchitis
[2019-01-18] MEDS ORDERED: CEPH-507 PO (16:41)
--- NOTE | 2019-01-18 16:41 | ED Integumentary General ---
General Chief Complaint: Bite-Animal/Human/Insect Stated Complaint: SWOLLEN INSECT BITE R RIB AREA Nursing Triage Note: PT STATES SHE NOTICED A LARGE AREA THAT SHE BELIEVES IS A SPIDER BITE THIS AM. PT STATES IT IS RED AND SWOLLEN, HARD AND PAINFUL. PT STATES BENADRYL WITHOUT RELIEF. LARGE RED AREA ON RIGHT CHEST/SIDE. Source: patient Exam Limitations: no limitations History of Present Illness Date Seen by Provider: January 18, 2019 Time Seen by Provider: 16:39 Initial Comments 58-year-old female who presents to the emergency room with complaints of an infected insect bite on her right rib cage. She noticed it this morning and it has progressively gotten worse. There is a large area of erythema surrounding a central puncture wound. She believes that it is a spider bite. Timing/Duration: this morning Associated Symptoms: change in skin texture Allergies and Home Medications Allergies Coded Allergies: latex (Unverified Allergy, Mild, 10/28/07) monosodium glutamate (Unverified Allergy, Mild, 10/28/07) Uncoded Allergies: SULFA (Allergy, Mild, RASH, 03/14/10) Home Medications Cephalexin 500 Mg Capsule, 500 MG PO TID Prescribed by: ZENY HAMPTON on 01/18/19 1641 Fluticasone Propionate 16 Gm [place], 2 SPRAYS NSEACH DAILY, (Reported) Methylphenidate HCl 27 Mg Tab.er.24, 27 MG PO DAILY, (Reported) Patient Home Medication List Home Medication List Reviewed: Yes Review of Systems Review of Systems Constitutional: see HPI; No chills, No fever Skin: see HPI, other (right ribcage insect bite.) All Other Systems Reviewed Negative Unless Noted: Yes Past Kdwlfen-Gbyiio-Ozlyrj Hx Past Med/Social Hx: Reviewed Nursing Past Med/Soc Hx Patient Social History Alcohol Use: Denies Use Recreational Drug Use: No Recent Foreign Travel: No Contact w/Someone Who Travel: No Recent Infectious Disease Expo: No Recent Hopitalizations: No Physical Abuse: No Sexual Abuse: No Mistreated: No Fear: No Immunizations Up To Date Date of Influenza Vaccine: Jun 30, 2013 Seasonal Allergies Seasonal Allergies: Yes Past Medical History Surgeries: Yes 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 Respiratory: Yes Asthma Cardiac: No Neurological: No Reproductive Disorders: No 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 Sexually Transmitted Disease: No HIV/AIDS: No Gastrointestinal: Yes Gastroesophageal Reflux Musculoskeletal: No Endocrine: No Cancer: No Psychosocial: Yes Anxiety, Depression Integumentary: No Blood Disorders: No Adverse Reaction/Blood Tranf: No Family Medical History Reviewed Nursing Family Hx Physical Exam Vital Signs Vital Signs - First Documented 01/18/19 16:30 Temp 97.6 Pulse 110 Resp 18 B/P (MAP) 215/115 (148) Pulse Ox 95 Capillary Refill : Less Than 3 Seconds General Appearance: WD/WN, no apparent distress Cardiovascular: normal peripheral pulses, regular rate, rhythm, no edema, no gallop, no JVD, no murmur Respiratory: chest non-tender, lungs clear, normal breath sounds, no respiratory distress, no accessory muscle use Extremities: normal capillary refill Neurologic/Psychiatric: alert, normal mood/affect, oriented x 3 Skin: normal color, warm/dry Skin Problem Location: torso (right ribcage) Skin Problem Character: erythema (with central area of enduration) Progress/Results/Core Measures Results/Orders My Orders Orders - ZENY HAMPTON Ceftriaxone For Im Use (Rocephin For Im (01/18/19 16:45) Lidocaine 1% Inj 20 Ml (Xylocaine 1% Inj (01/18/19 16:45) Im Injection Antibiotic Ed (01/18/19 ) Vital Signs/I&O 01/18/19 01/18/19 16:30 17:03 Temp 97.6 97.6 Pulse 110 110 Resp 18 18 B/P (MAP) 215/115 (148) 215/115 (148) Pulse Ox 95 95 Blood Pressure Mean: 148 Departure Impression Primary Impression: Insect bite Disposition: 01 HOME, SELF-CARE Condition: Stable/Unchanged Departure-Patient Inst. Decision time for Depature: 16:40 Referrals: [facility] (PCP/Family) Primary Care Physician Patient Instructions: Insect Bites and Stings (DC) Add. Discharge Instructions: Take medication as directed. Follow-up with your primary care provider within 1 week for recheck. Return back to the emergency room for worsening symptoms or concerns as needed. All discharge instructions reviewed with patient and/or family. Voiced understanding. Scripts Cephalexin (Keflex) 500 Mg Capsule 500 MG PO TID for 7 Days, #21 CAP Prov: ZENY HAMPTON 01/18/19 ZENY HAMPTON January 18, 2019 16:41
[2019-01-18] MEDS ORDERED: LIDOCAINE 1% INJ 20 ML 20 ML VIAL INJ ONE (16:45)
[2019-01-18] MEDS ORDERED: cefTRIAXone 1,000 MG/2.86 ml vial (IM ONLY) IM SCH (16:45)
--- OUTSIDE RECORDS SUMMARY | 2019-01-18 16:52 | XMS REPORT | Continuity of Care Document ---
Author Organization Unknown Address Unknown Allergies Active Description Code Type Severity Reaction Onset Reported/Identified Relationship to Patient Clinical Status Yes codeine [id number] Drug Allergy Mild N/A 10/28/2007 Yes latex [id number] Drug Allergy Mild N/A 10/28/2007 Yes monosodium glutamate [id number] Drug Allergy Mild N/A 10/28/2007 Yes codeine Drug Allergy N/A N/A 02/26/2010 Yes codeine Drug Allergy 02/26/2010 Yes sulfa drug Drug Allergy 02/26/2010 Yes SULFA SULFA Mild RASH 03/14/2010 Yes MSG Food Allergy N/A N/A 04/22/2010 [...] Of Back, Lumbar 02/19/2010 MURIEL POST DO 311 DEPRESSIVE DISORDER NOS 02/19/2010 MURIEL POST [...] And Strains Of Back, Lumbar 02/19/2010 KT PROGRAM MEDICAL DIRECTOR, ALLEN S 311 DEPRESSIVE DISORDER NOS 02/19/2010 KT PROGRAM MEDICAL DIRECTOR, ALLEN S 493.90 Asthma Unspecified 02/19/2010 KT PROGRAM MEDICAL DIRECTOR, ALLEN S 530.81 Gerd 02/19/2010 KT PROGRAM MEDICAL DIRECTOR, ALLEN S 717.3 Other And Unspecified Derangement Of Medial Meniscus 02/19/2010 KT PROGRAM MEDICAL DIRECTOR, ALLEN S 847.2 Sprains And Strains Of Back, Lumbar 02/19/2010 EDU WILLOUGHBY DO 311 DEPRESSIVE DISORDER NOS 02/19/2010 ESTELLA WILLOUGHBY DOA K 493.90 Asthma Unspecified 02/19/2010 ESTELLA WILLOUGHBY DOA K 530.81 Gerd 02/19/2010 EDU WILLOUGHBY DO K 717.3 Other And Unspecified Derangement Of Medial Meniscus 02/19/2010 ESTELLA WILLOUGHBY DOA K 847.2 Sprains And Strains Of Back, Lumbar 02/19/2010 AMRIT PROGRAM MEDICAL DIRECTOR, MAYRA A 311 DEPRESSIVE DISORDER NOS 02/19/2010 AMRIT PROGRAM MEDICAL DIRECTOR, MAYRA A 493.90 Asthma Unspecified 02/19/2010 AMRIT PROGRAM MEDICAL DIRECTOR, MAYRA A 530.81 Gerd 02/19/2010 AMRIT PROGRAM MEDICAL DIRECTOR, MAYRA A 717.3 Other And Unspecified Derangement Of Medial Meniscus 02/19/2010 MARIT PROGRAM MEDICAL DIRECTOR, MAYRA A 847.2 Sprains And Strains Of Back, Lumbar 02/19/2010 WELLINGTON MILESNJORDAN 311 DEPRESSIVE DISORDER NOS 02/19/2010 WELLINGTON MILESMarlene JORDAN JOYNER 493.90 Asthma Unspecified 02/19/2010 PARIS PROGRAM MEDICAL DIRECTORJORDAN 530.81 Gerd 02/19/2010 WELLINGTON MILESNJORDAN 717.3 Other And Unspecified Derangement Of Medial Meniscus 02/19/2010 WELLINGTON MILESNJORDAN 847.2 Sprains And Strains Of Back, Lumbar 02/19/2010 KT ENGLE ALLEN S 311 DEPRESSIVE DISORDER NOS 02/19/2010 KT PROGRAM MEDICAL DIRECTOR, ALLEN S 493.90 Asthma Unspecified 02/19/2010 KT PROGRAM MEDICAL DIRECTOR, ALLEN S 530.81 Gerd 02/19/2010 KT PROGRAM MEDICAL DIRECTOR, ALLEN S 717.3 Other And Unspecified Derangement Of Medial Meniscus 02/19/2010 KT PROGRAM MEDICAL DIRECTOR, ALLEN S 847.2 Sprains And Strains Of Back, Lumbar 02/19/2010 311 DEPRESSIVE DISORDER NOS 02/19/2010 493.90 Asthma Unspecified 02/19/2010 530.81 Gerd 02/19/2010 717.3 Other And Unspecified Derangement Of Medial Meniscus 02/19/2010 847.2 Sprains And Strains Of Back, Lumbar 02/19/2010 MAGI BANKS APRNINA R 311 DEPRESSIVE DISORDER NOS 02/19/2010 JOCELYN PROGRAM MEDICAL DIRECTOR, ALY R 493.90 Asthma Unspecified 02/19/2010 JOCELYN PROGRAM MEDICAL DIRECTOR, ALY R 530.81 Gerd 02/19/2010 JOCELYN PROGRAM MEDICAL DIRECTOR, ALY R 717.3 Other And Unspecified Derangement Of Medial Meniscus 02/19/2010 JOCELYN PROGRAM MEDICAL DIRECTOR, ALY R 847.2 Sprains And Strains Of Back, Lumbar 02/19/2010 KT PROGRAM MEDICAL DIRECTOR, ALLEN S 311 DEPRESSIVE DISORDER NOS 02/19/2010 KT PROGRAM MEDICAL DIRECTOR, ALLEN S 493.90 Asthma Unspecified 02/19/2010 KT PROGRAM MEDICAL DIRECTOR, ALLEN S 530.81 Gerd 02/19/2010 KT PROGRAM MEDICAL DIRECTOR, ALLEN S 717.3 Other And Unspecified Derangement Of Medial Meniscus 02/19/2010 KT PROGRAM MEDICAL DIRECTOR, ALLEN S 847.2 Sprains And Strains Of Back, Lumbar 02/19/2010 KT PROGRAM MEDICAL DIRECTOR, ALLEN S 311 DEPRESSIVE DISORDER NOS 02/19/2010 KT PROGRAM MEDICAL DIRECTOR, ALLEN S 493.90 Asthma Unspecified 02/19/2010 KT PROGRAM MEDICAL DIRECTOR, ALLEN S 530.81 Gerd 02/19/2010 KT PROGRAM MEDICAL DIRECTOR, ALLEN S 717.3 Other And Unspecified Derangement Of Medial Meniscus 02/19/2010 KT PROGRAM MEDICAL DIRECTOR, ALLEN S 847.2 Sprains And Strains Of Back, Lumbar 02/19/2010 KT PROGRAM MEDICAL DIRECTOR, ALLEN S 311 DEPRESSIVE DISORDER NOS 02/19/2010 KT PROGRAM MEDICAL DIRECTOR, ALLEN S 493.90 Asthma Unspecified 02/19/2010 KT PROGRAM MEDICAL DIRECTOR, ALLEN S 530.81 Gerd 02/19/2010 KT PROGRAM MEDICAL DIRECTOR, ALLEN S 717.3 Other And Unspecified Derangement Of Medial Meniscus 02/19/2010 KT PROGRAM MEDICAL DIRECTOR, ALLEN S 847.2 Sprains And Strains Of Back, Lumbar 02/19/2010 KT PROGRAM MEDICAL DIRECTOR, ALLEN S 311 DEPRESSIVE DISORDER NOS 02/19/2010 KT PROGRAM MEDICAL DIRECTOR, ALLEN S 493.90 Asthma Unspecified 02/19/2010 KT PROGRAM MEDICAL DIRECTOR, ALLEN S 530.81 Gerd 02/19/2010 KT PROGRAM MEDICAL DIRECTOR, ALLEN S 717.3 Other And Unspecified Derangement Of Medial Meniscus 02/19/2010 KT PROGRAM MEDICAL DIRECTOR, ALLEN S 847.2 Sprains And Strains Of Back, Lumbar 02/19/2010 KT PROGRAM MEDICAL DIRECTOR, ALLEN S 311 DEPRESSIVE DISORDER NOS 02/19/2010 KT PROGRAM MEDICAL DIRECTOR, ALLEN S 493.90 Asthma Unspecified 02/19/2010 KT PROGRAM MEDICAL DIRECTOR, ALLEN S 530.81 Gerd 02/19/2010 KT PROGRAM MEDICAL DIRECTOR, ALLEN S 717.3 Other And Unspecified Derangement Of Medial Meniscus 02/19/2010 KT PROGRAM MEDICAL DIRECTOR, ALLEN S 847.2 Sprains And Strains Of Back, Lumbar 02/19/2010 KT PROGRAM MEDICAL DIRECTOR, ALLEN S 311 DEPRESSIVE DISORDER NOS 02/19/2010 KT PROGRAM MEDICAL DIRECTOR, ALLEN S 493.90 Asthma Unspecified 02/19/2010 KT PROGRAM MEDICAL DIRECTOR, ALLEN S 530.81 Gerd 02/19/2010 KT PROGRAM MEDICAL DIRECTOR, ALLEN S 717.3 Other And Unspecified Derangement Of Medial Meniscus 02/19/2010 KT PROGRAM MEDICAL DIRECTOR, ALLEN S 847.2 Sprains And Strains Of Back, Lumbar 02/19/2010 KT PROGRAM MEDICAL DIRECTOR, ALLEN S 311 DEPRESSIVE DISORDER NOS 02/19/2010 KT PROGRAM MEDICAL DIRECTOR, ALLEN S 493.90 Asthma Unspecified 02/19/2010 KT PROGRAM MEDICAL DIRECTOR, ALLEN S 530.81 Gerd 02/19/2010 KT PROGRAM MEDICAL DIRECTOR, ALLEN S 717.3 Other And Unspecified Derangement Of Medial Meniscus 02/19/2010 KT PROGRAM MEDICAL DIRECTOR, ALLEN S 847.2 Sprains And Strains Of Back, Lumbar 02/19/2010 KT PROGRAM MEDICAL DIRECTOR, ALLEN S 311 DEPRESSIVE DISORDER NOS 02/19/2010 KT PROGRAM MEDICAL DIRECTOR, ALLEN S 493.90 Asthma Unspecified 02/19/2010 KT PROGRAM MEDICAL DIRECTOR, ALLEN S 530.81 Gerd 02/19/2010 KT PROGRAM MEDICAL DIRECTOR, ALLEN S 717.3 Other And Unspecified Derangement Of Medial Meniscus 02/19/2010 KT PROGRAM MEDICAL DIRECTOR, ALLEN S 847.2 Sprains And Strains Of Back, Lumbar 02/19/2010 KT PROGRAM MEDICAL DIRECTOR, ALLEN S 311 DEPRESSIVE DISORDER NOS 02/19/2010 ALLEN MERAZ APRN S 493.90 Asthma Unspecified 02/19/2010 ALLEN MERAZ APRN S 530.81 Gerd 02/19/2010 ALLEN MERAZ APRN S 717.3 Other And Unspecified Derangement Of Medial Meniscus 02/19/2010 ALLEN MERAZ APRN S 847.2 Sprains And Strains Of Back, Lumbar 02/26/2010 787.01 Nausea With Vomiting 02/26/2010 787.91 Diarrhea 02/26/2010 CASE DO EDU K 787.01 Nausea With Vomiting 02/26/2010 WILLOUGHBY DO EDU K 787.91 Diarrhea 02/26/2010 WERMURIEL MARTINS DO F 787.01 Nausea With Vomiting 02/26/2010 MURIEL POST DO F 787.91 Diarrhea 02/26/2010 787.01 Nausea With Vomiting 02/26/2010 787.91 Diarrhea 02/26/2010 787.01 Nausea With Vomiting 02/26/2010 787.91 Diarrhea 02/26/2010 787.01 Nausea With Vomiting 02/26/2010 787.91 Diarrhea 02/26/2010 787.01 Nausea With Vomiting 02/26/2010 787.91 Diarrhea 02/26/2010 787.01 Nausea With Vomiting 02/26/2010 787.91 Diarrhea 02/26/2010 ALLEN MERAZ APRN S 787.01 Nausea With Vomiting 02/26/2010 ALLEN MERAZ APRN S 787.91 Diarrhea 02/26/2010 ESTELLA WILLOUGHBY DOA K 787.01 Nausea With Vomiting 02/26/2010 CASE RIVERA EDU K 787.91 Diarrhea 02/26/2010 AMRITMarlene ENGLE MAYRA A 787.01 Nausea With Vomiting 02/26/2010 AMRIT ENGLE MAYRA A 787.91 Diarrhea 02/26/2010 [place] ENGLE JORDAN AR 787.01 Nausea With Vomiting 02/26/2010 EWLLINGTON ENGLE JORDAN AR 787.91 Diarrhea 02/26/2010 ALLEN MERAZ APRN S 787.01 Nausea With Vomiting 02/26/2010 ALLEN MERAZ APRN S 787.91 Diarrhea 02/26/2010 787.01 Nausea With Vomiting 02/26/2010 787.91 Diarrhea 02/26/2010 JOCELYN PROGRAM MEDICAL DIRECTOR, ALY R 787.01 Nausea With Vomiting 02/26/2010 JOCELYN PROGRAM MEDICAL DIRECTOR, ALY R 787.91 Diarrhea 02/26/2010 KT PROGRAM MEDICAL DIRECTOR, ALLEN S 787.01 Nausea With Vomiting 02/26/2010 KT PROGRAM MEDICAL DIRECTOR, ALLEN S 787.91 Diarrhea 02/26/2010 KT PROGRAM MEDICAL DIRECTOR, ALLEN S 787.01 Nausea With Vomiting 02/26/2010 KT PROGRAM MEDICAL DIRECTOR, ALLEN S 787.91 Diarrhea 02/26/2010 KT PROGRAM MEDICAL DIRECTOR, ALLEN S 787.01 Nausea With Vomiting 02/26/2010 KT PROGRAM MEDICAL DIRECTOR, ALLEN S 787.91 Diarrhea 02/26/2010 KT PROGRAM MEDICAL DIRECTOR, ALLEN S 787.01 Nausea With Vomiting 02/26/2010 KT PROGRAM MEDICAL DIRECTOR, ALLEN S 787.91 Diarrhea 02/26/2010 KT PROGRAM MEDICAL DIRECTOR, ALLEN S 787.01 Nausea With Vomiting 02/26/2010 KT PROGRAM MEDICAL DIRECTOR, ALLEN S 787.91 Diarrhea 02/26/2010 KT PROGRAM MEDICAL DIRECTOR, ALLEN S 787.01 Nausea With Vomiting 02/26/2010 KT PROGRAM MEDICAL DIRECTOR, ALLEN S 787.91 Diarrhea 02/26/2010 KT PROGRAM MEDICAL DIRECTOR, ALLEN S 787.01 Nausea With Vomiting 02/26/2010 KT PROGRAM MEDICAL DIRECTOR, ALLEN S 787.91 Diarrhea 02/26/2010 KT PROGRAM MEDICAL DIRECTOR, ALLEN S 787.01 Nausea With Vomiting 02/26/2010 KT PROGRAM MEDICAL DIRECTOR, ALLEN S 787.91 Diarrhea 02/26/2010 KT PROGRAM MEDICAL DIRECTOR, ALLEN S 787.01 Nausea With Vomiting 02/26/2010 KT PROGRAM MEDICAL DIRECTOR, ALLEN S 787.91 Diarrhea 03/01/2010 692.6 Contact Dermatitis And Other Eczema, Due To Plants [except Food] 03/01/2010 EDU WILLOUGHBY DO K 692.6 Contact Dermatitis And Other Eczema, Due To Plants [except Food] 03/01/2010 WERMURIEL MARTINS DO 692.6 Contact Dermatitis And Other Eczema, [...] Due To Plants [except Food] 03/01/2010 KT PROGRAM MEDICAL DIRECTOR, ALLEN S 692.6 Contact Dermatitis And Other Eczema, Due To Plants [except Food] 03/01/2010 WILLOUGHBY DO, EDU K 692.6 Contact Dermatitis And Other Eczema, Due To Plants [except Food] 03/01/2010 AMRIT PROGRAM MEDICAL DIRECTOR, MAYRA A 692.6 Contact Dermatitis And Other Eczema, Due To Plants [except Food] 03/01/2010 PARIS PROGRAM MEDICAL DIRECTOR, JORDAN AR 692.6 Contact Dermatitis And Other Eczema, Due To Plants [except Food] 03/01/2010 KT PROGRAM MEDICAL DIRECTOR, ALLEN S 692.6 Contact Dermatitis And Other Eczema, Due To Plants [except Food] 03/01/2010 692.6 Contact Dermatitis And Other Eczema, Due To Plants [except Food] 03/01/2010 JOCELYN PROGRAM MEDICAL DIRECTORALY R 692.6 Contact Dermatitis And Other Eczema, Due To Plants [except Food] 03/01/2010 KT PROGRAM MEDICAL DIRECTOR, ALLEN S 692.6 Contact Dermatitis And Other Eczema, Due To Plants [except Food] 03/01/2010 KT PROGRAM MEDICAL DIRECTOR, ALLEN S 692.6 Contact Dermatitis And Other Eczema, Due To Plants [except Food] 03/01/2010 KT PROGRAM MEDICAL DIRECTOR, ALLEN S 692.6 Contact Dermatitis And Other Eczema, Due To Plants [except Food] 03/01/2010 KT PROGRAM MEDICAL DIRECTOR, ALLEN S 692.6 Contact Dermatitis And Other Eczema, Due To Plants [except Food] 03/01/2010 KT PROGRAM MEDICAL DIRECTOR, ALLEN S 692.6 Contact Dermatitis And Other Eczema, Due To Plants [except Food] 03/01/2010 KT PROGRAM MEDICAL DIRECTOR, ALLEN S 692.6 Contact Dermatitis And Other Eczema, Due To Plants [except Food] 03/01/2010 KT PROGRAM MEDICAL DIRECTOR, ALLEN S 692.6 Contact Dermatitis And Other Eczema, Due To Plants [except Food] 03/01/2010 KT PROGRAM MEDICAL DIRECTOR, ALLEN S 692.6 Contact Dermatitis And Other Eczema, Due To Plants [except Food] 03/01/2010 KT PROGRAM MEDICAL DIRECTOR, ALLEN S 692.6 Contact Dermatitis And Other Eczema, Due To Plants [except Food] 04/12/2010 NODX No Diagnosis 04/12/2010 WILLOUGHBY DOEDU K NODX No Diagnosis 04/12/2010 MURIEL POST DO F NODX No Diagnosis 04/12/2010 NODX No Diagnosis 04/12/2010 NODX No Diagnosis 04/12/2010 NODX No Diagnosis 04/12/2010 NODX No Diagnosis 04/12/2010 NODX No Diagnosis 04/12/2010 KT PROGRAM MEDICAL DIRECTOR, ALLEN S NODX No Diagnosis 04/12/2010 WILLOUGHBY DOEDU K NODX No Diagnosis 04/12/2010 AMRIT PROGRAM MEDICAL DIRECTOR, MAYRA A NODX No Diagnosis 04/12/2010 PARIS PROGRAM MEDICAL DIRECTOR, JORDAN JOYNER NODX No Diagnosis 04/12/2010 KT PROGRAM MEDICAL DIRECTOR, ALLEN S NODX No Diagnosis 04/12/2010 NODX No Diagnosis 04/12/2010 JOCELYN PROGRAM MEDICAL DIRECTOR, ALY R NODX No Diagnosis 04/12/2010 KT PROGRAM MEDICAL DIRECTOR, ALLEN S NODX No Diagnosis 04/12/2010 KT PROGRAM MEDICAL DIRECTOR, ALLEN S NODX No Diagnosis 04/12/2010 KT PROGRAM MEDICAL DIRECTOR, ALLEN S NODX No Diagnosis 04/12/2010 KT PROGRAM MEDICAL DIRECTOR, ALLEN S NODX No Diagnosis 04/12/2010 KT PROGRAM MEDICAL DIRECTOR, ALLEN S NODX No Diagnosis 04/12/2010 KT PROGRAM MEDICAL DIRECTOR, ALLEN S NODX No Diagnosis 04/12/2010 KT PROGRAM MEDICAL DIRECTOR, ALLEN S NODX No Diagnosis 04/12/2010 KT PROGRAM MEDICAL DIRECTOR, ALLEN S NODX No Diagnosis 04/12/2010 KT PROGRAM MEDICAL DIRECTOR, ALLEN S NODX No Diagnosis 05/01/2010 493.92 Asthma (acute) Exacerbation 05/01/2010 786.2 Cough 05/01/2010 WILLOUGHBY DO EDU K 493.92 Asthma (acute) Exacerbation 05/01/2010 WILLOUGHBY DO, EDU K 786.2 Cough 05/01/2010 SINCERE DO MURIEL F 493.92 Asthma (acute) Exacerbation 05/01/2010 SINCERE RIVERA MURIEL F 786.2 Cough 05/01/2010 493.92 Asthma (acute) Exacerbation 05/01/2010 786.2 Cough 05/01/2010 493.92 Asthma (acute) Exacerbation 05/01/2010 786.2 Cough 05/01/2010 493.92 Asthma (acute) Exacerbation 05/01/2010 786.2 Cough 05/01/2010 493.92 Asthma (acute) Exacerbation 05/01/2010 786.2 Cough 05/01/2010 493.92 Asthma (acute) Exacerbation 05/01/2010 786.2 Cough 05/01/2010 KT PROGRAM MEDICAL DIRECTOR, ALLEN S 493.92 Asthma (acute) Exacerbation 05/01/2010 KT PROGRAM MEDICAL DIRECTOR, ALLEN S 786.2 Cough 05/01/2010 WILLOUGHBY ESTELLA RIVERAA K 493.92 Asthma (acute) Exacerbation 05/01/2010 WILLOUGHBY DOESTELLAA K 786.2 Cough 05/01/2010 AMRIT PROGRAM MEDICAL DIRECTOR, MAYRA A 493.92 Asthma (acute) Exacerbation 05/01/2010 AMRIT PROGRAM MEDICAL DIRECTOR, MAYRA A 786.2 Cough 05/01/2010 [place] ENGLE JORDAN AR 493.92 Asthma (acute) Exacerbation 05/01/2010 [place] ENGLE JORDAN JOYNER 786.2 Cough 05/01/2010 KT PROGRAM MEDICAL DIRECTOR, ALLEN S 493.92 Asthma (acute) Exacerbation 05/01/2010 KT PROGRAM MEDICAL DIRECTOR, ALLEN S 786.2 Cough 05/01/2010 493.92 Asthma (acute) Exacerbation 05/01/2010 786.2 Cough 05/01/2010 JOCELYN PROGRAM MEDICAL DIRECTOR, ALY R 493.92 Asthma (acute) Exacerbation 05/01/2010 JOCELYN PROGRAM MEDICAL DIRECTOR, ALY R 786.2 Cough 05/01/2010 KT PROGRAM MEDICAL DIRECTOR, ALLEN S 493.92 Asthma (acute) Exacerbation 05/01/2010 KT PROGRAM MEDICAL DIRECTOR, ALLEN S 786.2 Cough 05/01/2010 KT PROGRAM MEDICAL DIRECTOR, ALLEN S 493.92 Asthma (acute) Exacerbation 05/01/2010 KT PROGRAM MEDICAL DIRECTOR, ALLEN S 786.2 Cough 05/01/2010 KT PROGRAM MEDICAL DIRECTOR, ALLEN S 493.92 Asthma (acute) Exacerbation 05/01/2010 KT PROGRAM MEDICAL DIRECTOR, ALLEN S 786.2 Cough 05/01/2010 KT PROGRAM MEDICAL DIRECTOR, ALLEN S 493.92 Asthma (acute) Exacerbation 05/01/2010 KT PROGRAM MEDICAL DIRECTOR, ALLEN S 786.2 Cough 05/01/2010 KT PROGRAM MEDICAL DIRECTOR, ALLEN S 493.92 Asthma (acute) Exacerbation 05/01/2010 KT PROGRAM MEDICAL DIRECTOR, ALLEN S 786.2 Cough 05/01/2010 KT PROGRAM MEDICAL DIRECTOR, ALLEN S 493.92 Asthma (acute) Exacerbation 05/01/2010 KT PROGRAM MEDICAL DIRECTOR, ALLEN S 786.2 Cough 05/01/2010 KT PROGRAM MEDICAL DIRECTOR, ALLEN S 493.92 Asthma (acute) Exacerbation 05/01/2010 KT PROGRAM MEDICAL DIRECTOR, ALLEN S 786.2 Cough 05/01/2010 KT PROGRAM MEDICAL DIRECTOR, ALLEN S 493.92 Asthma (acute) Exacerbation 05/01/2010 KT PROGRAM MEDICAL DIRECTOR, ALLEN S 786.2 Cough 05/01/2010 KT PROGRAM MEDICAL DIRECTOR, ALLEN S 493.92 Asthma (acute) Exacerbation 05/01/2010 KT PROGRAM MEDICAL DIRECTOR, ALLEN S 786.2 Cough 05/04/2010 465.9 Upper [...] Respiratory Infection 05/04/2010 786.2 Cough 05/04/2010 KT PROGRAM MEDICAL DIRECTOR, ALLEN S 465.9 Upper Respiratory Infection 05/04/2010 KT PROGRAM MEDICAL DIRECTOR, ALLEN S 786.2 Cough 05/04/2010 WILLOUGHBY DO, EDU K 465.9 Upper Respiratory Infection 05/04/2010 WILLOUGHBY DO, EDU K 786.2 Cough 05/04/2010 AMRIT PROGRAM MEDICAL DIRECTOR, MAYRA A 465.9 Upper Respiratory Infection 05/04/2010 AMRIT PROGRAM MEDICAL DIRECTOR, MAYRA A 786.2 Cough 05/04/2010 PARIS PROGRAM MEDICAL DIRECTOR, JORDAN JOYNER 465.9 Upper Respiratory Infection 05/04/2010 PARIS PROGRAM MEDICAL DIRECTOR, JORDAN JOYNER 786.2 Cough 05/04/2010 KT PROGRAM MEDICAL DIRECTOR, ALLEN S 465.9 Upper Respiratory Infection 05/04/2010 KT PROGRAM MEDICAL DIRECTOR, ALLEN S 786.2 Cough 05/04/2010 465.9 Upper Respiratory Infection 05/04/2010 786.2 Cough 05/04/2010 JOCELYN PROGRAM MEDICAL DIRECTOR, ALY R 465.9 Upper Respiratory Infection 05/04/2010 JOCELYN PROGRAM MEDICAL DIRECTOR, ALY R 786.2 Cough 05/04/2010 KT PROGRAM MEDICAL DIRECTOR, ALLEN S 465.9 Upper Respiratory Infection 05/04/2010 KT PROGRAM MEDICAL DIRECTOR, ALLEN S 786.2 Cough 05/04/2010 KT PROGRAM MEDICAL DIRECTOR, ALLEN S 465.9 Upper Respiratory Infection 05/04/2010 KT PROGRAM MEDICAL DIRECTOR, ALLEN S 786.2 Cough 05/04/2010 KT PROGRAM MEDICAL DIRECTOR, ALLEN S 465.9 Upper Respiratory Infection 05/04/2010 KT PROGRAM MEDICAL DIRECTOR, ALLEN S 786.2 Cough 05/04/2010 KT PROGRAM MEDICAL DIRECTOR, ALLEN S 465.9 Upper Respiratory Infection 05/04/2010 TK PROGRAM MEDICAL DIRECTOR, ALLEN S 786.2 Cough 05/04/2010 KT PROGRAM MEDICAL DIRECTOR, ALLEN S 465.9 Upper Respiratory Infection 05/04/2010 KT PROGRAM MEDICAL DIRECTOR, ALLEN S 786.2 Cough 05/04/2010 KT PROGRAM MEDICAL DIRECTOR, ALLEN S 465.9 Upper Respiratory Infection 05/04/2010 KT PROGRAM MEDICAL DIRECTOR, ALLEN S 786.2 Cough 05/04/2010 KT PROGRAM MEDICAL DIRECTOR, ALLEN S 465.9 Upper Respiratory Infection 05/04/2010 KT PROGRAM MEDICAL DIRECTOR, ALLEN S 786.2 Cough 05/04/2010 KT PROGRAM MEDICAL DIRECTOR, ALLEN S 465.9 Upper Respiratory Infection 05/04/2010 KT PROGRAM MEDICAL DIRECTOR, ALLEN S 786.2 Cough 05/04/2010 KT PROGRAM MEDICAL DIRECTOR, ALLEN S 465.9 Upper Respiratory Infection 05/04/2010 KT PROGRAM MEDICAL DIRECTOR, ALLEN S 786.2 Cough 05/12/2010 789.00 Abdominal Pain Unspecified Site 05/12/2010 CASE DOEDU K 789.00 Abdominal Pain Unspecified Site 05/12/2010 MURIEL POST DO 789.00 Abdominal Pain Unspecified Site 05/12/2010 789.00 Abdominal Pain Unspecified Site 05/12/2010 789.00 Abdominal Pain Unspecified Site 05/12/2010 789.00 Abdominal Pain Unspecified Site 05/12/2010 789.00 Abdominal Pain Unspecified Site 05/12/2010 789.00 Abdominal Pain Unspecified Site 05/12/2010 KT PROGRAM MEDICAL DIRECTOR, ALLEN S 789.00 Abdominal Pain Unspecified Site 05/12/2010 WILLOUGHBY DOESTELLAA K 789.00 Abdominal Pain Unspecified Site 05/12/2010 MAYRA MARCUS APRN 789.00 Abdominal Pain Unspecified Site 05/12/2010 JORDAN PARIS APRN 789.00 Abdominal Pain Unspecified Site 05/12/2010 KT PROGRAM MEDICAL DIRECTOR, ALLEN S 789.00 Abdominal Pain Unspecified Site 05/12/2010 789.00 Abdominal Pain Unspecified Site 05/12/2010 ALY BANKS APRN R 789.00 Abdominal Pain Unspecified Site 05/12/2010 KT PROGRAM MEDICAL DIRECTOR, ALLEN S 789.00 Abdominal Pain Unspecified Site 05/12/2010 KT PROGRAM MEDICAL DIRECTOR, ALLEN S 789.00 Abdominal Pain Unspecified Site 05/12/2010 KT PROGRAM MEDICAL DIRECTOR, ALLEN S 789.00 Abdominal Pain Unspecified Site 05/12/2010 KT PROGRAM MEDICAL DIRECTOR, ALLEN S 789.00 Abdominal Pain Unspecified Site 05/12/2010 KT PROGRAM MEDICAL DIRECTOR, ALLEN S 789.00 Abdominal Pain Unspecified Site 05/12/2010 KT PROGRAM MEDICAL DIRECTOR, ALLEN S 789.00 Abdominal Pain Unspecified Site 05/12/2010 KT PROGRAM MEDICAL DIRECTOR, ALLEN S 789.00 Abdominal Pain Unspecified Site 05/12/2010 KT PROGRAM MEDICAL DIRECTOR, ALLEN S 789.00 Abdominal Pain Unspecified Site 05/12/2010 KT PROGRAM MEDICAL DIRECTOR, ALLEN S 789.00 Abdominal Pain Unspecified Site 06/14/2010 714.0 Arthritis, Rheumatoid 06/14/2010 WILLOUGHBY DO, EDU K 714.0 Arthritis, Rheumatoid 06/14/2010 SINCERE DO MURIEL F 714.0 Arthritis, Rheumatoid 06/14/2010 714.0 Arthritis, Rheumatoid 06/14/2010 714.0 Arthritis, Rheumatoid 06/14/2010 714.0 Arthritis, Rheumatoid 06/14/2010 714.0 Arthritis, Rheumatoid 06/14/2010 714.0 Arthritis, Rheumatoid 06/14/2010 KT PROGRAM MEDICAL DIRECTOR, ALLEN S 714.0 Arthritis, Rheumatoid 06/14/2010 WILLOUGHBY DO, EDU K 714.0 Arthritis, Rheumatoid 06/14/2010 AMRIT PROGRAM MEDICAL DIRECTOR, MAYRA A 714.0 Arthritis, Rheumatoid 06/14/2010 [place] PROGRAM MEDICAL DIRECTOR, JORDAN JOYNER 714.0 Arthritis, Rheumatoid 06/14/2010 KT PROGRAM MEDICAL DIRECTOR, ALLEN S 714.0 Arthritis, Rheumatoid 06/14/2010 714.0 Arthritis, Rheumatoid 06/14/2010 JOCELYN PROGRAM MEDICAL DIRECTOR, ALY R 714.0 Arthritis, Rheumatoid 06/14/2010 KT PROGRAM MEDICAL DIRECTOR, ALLEN S 714.0 Arthritis, Rheumatoid 06/14/2010 KT PROGRAM MEDICAL DIRECTOR, ALLEN S 714.0 Arthritis, Rheumatoid 06/14/2010 KT PROGRAM MEDICAL DIRECTOR, ALLEN S 714.0 Arthritis, Rheumatoid 06/14/2010 KT PROGRAM MEDICAL DIRECTOR, ALLEN S 714.0 Arthritis, Rheumatoid 06/14/2010 KT PROGRAM MEDICAL DIRECTOR, ALLEN S 714.0 Arthritis, Rheumatoid 06/14/2010 KT PROGRAM MEDICAL DIRECTOR, ALLEN S 714.0 Arthritis, Rheumatoid 06/14/2010 KT PROGRAM MEDICAL DIRECTOR, ALLEN S 714.0 Arthritis, Rheumatoid 06/14/2010 BILLY MERAZ APRNNDA S 714.0 Arthritis, Rheumatoid 06/14/2010 KT ENGLE, ALLEN S 714.0 Arthritis, Rheumatoid 07/06/2010 491.0 Simple Chronic Bronchitis 07/06/2010 724.2 Lumbago 07/06/2010 WILLOUGHBY DOESTELLAA K 491.0 Simple Chronic Bronchitis 07/06/2010 WILLOUGHBY DO EDU K 724.2 Lumbago 07/06/2010 WERDER DOMAGDAEN F 491.0 Simple Chronic Bronchitis 07/06/2010 WERDER DO, MURIEL F 724.2 Lumbago 07/06/2010 491.0 Simple Chronic Bronchitis 07/06/2010 724.2 Lumbago 07/06/2010 491.0 Simple Chronic Bronchitis 07/06/2010 724.2 Lumbago 07/06/2010 491.0 Simple Chronic Bronchitis 07/06/2010 724.2 Lumbago 07/06/2010 491.0 Simple Chronic Bronchitis 07/06/2010 724.2 Lumbago 07/06/2010 491.0 Simple Chronic Bronchitis 07/06/2010 724.2 Lumbago 07/06/2010 KEYUR MERAZ APRNA S 491.0 Simple Chronic Bronchitis 07/06/2010 KEYUR MERAZ APRNA S 724.2 Lumbago 07/06/2010 WILLOUGHBY DOESTELLAA K 491.0 Simple Chronic Bronchitis 07/06/2010 WILLOUGHBY DO EDU K 724.2 Lumbago 07/06/2010 ROMEL MARCUS APRNIDI A 491.0 Simple Chronic Bronchitis 07/06/2010 AMRIT ENGLE MAYRA A 724.2 Lumbago 07/06/2010 JORDAN PARIS APRN 491.0 Simple Chronic Bronchitis 07/06/2010 JORDAN PARIS APRN 724.2 Lumbago 07/06/2010 BILLY MERAZ APRNNDA S 491.0 Simple Chronic Bronchitis 07/06/2010 KEYUR MERAZ APRNA S 724.2 Lumbago 07/06/2010 491.0 Simple Chronic Bronchitis 07/06/2010 724.2 Lumbago 07/06/2010 JOCELYN PROGRAM MEDICAL DIRECTOR, ALY R 491.0 Simple Chronic Bronchitis 07/06/2010 JOCELYN PROGRAM MEDICAL DIRECTOR, ALY R 724.2 Lumbago 07/06/2010 KT PROGRAM MEDICAL DIRECTOR, ALLEN S 491.0 Simple Chronic Bronchitis 07/06/2010 KT PROGRAM MEDICAL DIRECTOR, ALLEN S 724.2 Lumbago 07/06/2010 KT PROGRAM MEDICAL DIRECTOR, ALLEN S 491.0 Simple Chronic Bronchitis 07/06/2010 KT PROGRAM MEDICAL DIRECTOR, ALLEN S 724.2 Lumbago 07/06/2010 KT PROGRAM MEDICAL DIRECTOR, ALLEN S 491.0 Simple Chronic Bronchitis 07/06/2010 KT PROGRAM MEDICAL DIRECTOR, ALLEN S 724.2 Lumbago 07/06/2010 KT PROGRAM MEDICAL DIRECTOR, ALLEN S 491.0 Simple Chronic Bronchitis 07/06/2010 KT PROGRAM MEDICAL DIRECTOR, ALLEN S 724.2 Lumbago 07/06/2010 KT PROGRAM MEDICAL DIRECTOR, ALLEN S 491.0 Simple Chronic Bronchitis 07/06/2010 KT PROGRAM MEDICAL DIRECTOR, ALLEN S 724.2 Lumbago 07/06/2010 KT PROGRAM MEDICAL DIRECTOR, ALLEN S 491.0 Simple Chronic Bronchitis 07/06/2010 KT PROGRAM MEDICAL DIRECTOR, ALLEN S 724.2 Lumbago 07/06/2010 KT PROGRAM MEDICAL DIRECTOR, ALLEN S 491.0 Simple Chronic Bronchitis 07/06/2010 KT PROGRAM MEDICAL DIRECTOR, ALLEN S 724.2 Lumbago 07/06/2010 KT PROGRAM MEDICAL DIRECTOR, ALLEN S 491.0 Simple Chronic Bronchitis 07/06/2010 KT PROGRAM MEDICAL DIRECTOR, ALLEN S 724.2 Lumbago 07/06/2010 KT PROGRAM MEDICAL DIRECTOR, ALLEN S 491.0 Simple Chronic Bronchitis 07/06/2010 KT PROGRAM MEDICAL DIRECTOR, ALLEN S 724.2 Lumbago 08/01/2010 300.00 Anxiety Unspec 08/01/2010 EDU [place] DO 300.00 Anxiety Unspec 08/01/2010 MURIEL POST DO 300.00 Anxiety Unspec 08/01/2010 300.00 Anxiety Unspec 08/01/2010 300.00 Anxiety Unspec 08/01/2010 300.00 Anxiety Unspec 08/01/2010 300.00 Anxiety Unspec 08/01/2010 300.00 Anxiety Unspec 08/01/2010 KT PROGRAM MEDICAL DIRECTOR, ALLEN S 300.00 Anxiety Unspec 08/01/2010 WILLOUGHBY DO, EDU K 300.00 Anxiety Unspec 08/01/2010 AMRIT PROGRAM MEDICAL DIRECTOR, MAYRA A 300.00 Anxiety Unspec 08/01/2010 [place] PROGRAM MEDICAL DIRECTORJORDAN 300.00 Anxiety Unspec 08/01/2010 KT PROGRAM MEDICAL DIRECTOR, ALLEN S 300.00 Anxiety Unspec 08/01/2010 300.00 Anxiety Unspec 08/01/2010 JOCELYN PROGRAM MEDICAL DIRECTOR, ALY R 300.00 Anxiety Unspec 08/01/2010 KT PROGRAM MEDICAL DIRECTOR, ALLEN S 300.00 Anxiety Unspec 08/01/2010 KT PROGRAM MEDICAL DIRECTOR, ALLEN S 300.00 Anxiety Unspec 08/01/2010 KT PROGRAM MEDICAL DIRECTOR, ALLEN S 300.00 Anxiety Unspec 08/01/2010 KT PROGRAM MEDICAL DIRECTOR, ALLEN S 300.00 Anxiety Unspec 08/01/2010 KT PROGRAM MEDICAL DIRECTOR, ALLEN S 300.00 Anxiety Unspec 08/01/2010 KT PROGRAM MEDICAL DIRECTOR, ALLEN S 300.00 Anxiety Unspec 08/01/2010 KT PROGRAM MEDICAL DIRECTOR, ALLEN S 300.00 Anxiety Unspec 08/01/2010 KT PROGRAM MEDICAL DIRECTOR, ALLEN S 300.00 Anxiety Unspec 08/01/2010 KT PROGRAM MEDICAL DIRECTOR, ALLEN S 300.00 Anxiety Unspec 09/24/2010 719.46 Pain In Joint Involving Lower Leg 09/24/2010 780.79 Fatigue 09/24/2010 784.7 Epistaxis 09/24/2010 796.2 Elevated Blood Pressure Reading Without Diagnosis Of Hypertension 09/24/2010 V18.0 Fam Hx Diabetes Mellitus 09/24/2010 WILLOUGHBY DO, EDU K 719.46 Pain In Joint Involving Lower Leg 09/24/2010 WILLOUGHBY DO, EDU K 780.79 Fatigue 09/24/2010 WILLOUGHBY DO, EDU K 784.7 Epistaxis 09/24/2010 WILLOUGHBY DO, EDU K 796.2 Elevated Blood Pressure Reading Without Diagnosis Of Hypertension 09/24/2010 WILLOUGHBY DO, EDU K V18.0 Fam Hx Diabetes Mellitus 09/24/2010 MURIEL POST DO 719.46 Pain In Joint Involving Lower Leg 09/24/2010 MURIEL POST DO 780.79 Fatigue 09/24/2010 MURIEL POST DO F 784.7 Epistaxis 09/24/2010 MURIEL POST DO 796.2 [...] 09/24/2010 V18.0 Fam Hx Diabetes Mellitus 09/24/2010 KT MILESNBILLYALLEN S 719.46 Pain In Joint Involving Lower Leg 09/24/2010 KT MILESNBILLYALLEN S 780.79 Fatigue 09/24/2010 BILLY MERAZ APRNNDA S 784.7 Epistaxis 09/24/2010 BILLY MERAZ APRNNDA S 796.2 Elevated Blood Pressure Reading Without Diagnosis Of Hypertension 09/24/2010 KT ENGLE, ALLEN S V18.0 Fam Hx Diabetes Mellitus 09/24/2010 WILLOUGHBY DO EDU K 719.46 Pain In Joint Involving Lower Leg 09/24/2010 WILLOUGHBY DO, EDU K 780.79 Fatigue 09/24/2010 WILLOUGHBY DO, EDU K 784.7 Epistaxis 09/24/2010 WILLOUGHBY DO, EDU K 796.2 Elevated Blood Pressure Reading Without Diagnosis Of Hypertension 09/24/2010 WILLOUGHBY DO EDU K V18.0 Fam Hx Diabetes Mellitus 09/24/2010 AMRIT ENGLE, MAYRA A 719.46 Pain In Joint Involving Lower Leg 09/24/2010 AMRIT PROGRAM MEDICAL DIRECTOR, MAYRA A 780.79 Fatigue 09/24/2010 AMRIT MILESN, MAYRA A 784.7 Epistaxis 09/24/2010 AMRIT ENGLE, MAYRA A 796.2 Elevated Blood Pressure Reading Without Diagnosis Of Hypertension 09/24/2010 AMRIT MILESMarlene MAYRA A V18.0 Fam Hx Diabetes Mellitus 09/24/2010 JORDAN PARIS APRN 719.46 Pain In Joint Involving Lower Leg 09/24/2010 JORDAN PARIS APRN 780.79 Fatigue 09/24/2010 JORDAN PARIS APRN 784.7 Epistaxis 09/24/2010 JORDAN PARIS APRN 796.2 Elevated Blood Pressure Reading Without Diagnosis Of Hypertension 09/24/2010 JORDAN PARIS APRN V18.0 Fam Hx Diabetes Mellitus 09/24/2010 BILLY MERAZ APRNNDA S 719.46 Pain In Joint Involving Lower Leg 09/24/2010 KT ENGLE ALLEN S 780.79 Fatigue 09/24/2010 KT ENGLE, ALLEN [...] 09/24/2010 V18.0 Fam Hx Diabetes Mellitus 09/24/2010 JOCELYN PROGRAM MEDICAL DIRECTOR, ALY R 719.46 Pain In Joint Involving Lower Leg 09/24/2010 JOCELYN PROGRAM MEDICAL DIRECTOR, ALY R 780.79 Fatigue 09/24/2010 JOCELYN PROGRAM MEDICAL DIRECTOR, ALY R 784.7 Epistaxis 09/24/2010 JOCELYN PROGRAM MEDICAL DIRECTOR, ALY R 796.2 Elevated Blood Pressure Reading Without Diagnosis Of Hypertension 09/24/2010 JOCELYN PROGRAM MEDICAL DIRECTOR, ALY R V18.0 Fam Hx Diabetes Mellitus 09/24/2010 KT PROGRAM MEDICAL DIRECTOR, ALLEN S 719.46 Pain In Joint Involving Lower Leg 09/24/2010 KT ENGLE ALLEN S 780.79 Fatigue 09/24/2010 BILLY MERAZ APRNNDA S 784.7 Epistaxis 09/24/2010 KT ENGLE ALLEN S 796.2 Elevated Blood Pressure Reading Without Diagnosis Of Hypertension 09/24/2010 BILLY MERAZ APRNNDA S V18.0 Fam Hx Diabetes Mellitus 09/24/2010 KT ENGLE ALLEN S 719.46 Pain In Joint Involving Lower Leg 09/24/2010 KT ENGLE ALLEN S 780.79 Fatigue 09/24/2010 BILLY MERAZ APRNNDA S 784.7 Epistaxis 09/24/2010 KT ENGLE ALLEN S 796.2 Elevated Blood Pressure Reading Without Diagnosis Of Hypertension 09/24/2010 KT ENGLE ALLEN S V18.0 Fam Hx Diabetes Mellitus 09/24/2010 KT ENGLE ALLEN S 719.46 Pain In Joint Involving Lower Leg 09/24/2010 KT ENGLE, ALLEN S 780.79 Fatigue 09/24/2010 KT ENGLE, ALLEN S 784.7 Epistaxis 09/24/2010 KT ENGLE, ALLEN S 796.2 Elevated Blood Pressure Reading Without Diagnosis Of Hypertension 09/24/2010 KT MILESN, ALLEN S V18.0 Fam Hx Diabetes Mellitus 09/24/2010 KT ENGLE ALLEN S 719.46 Pain In Joint Involving Lower Leg 09/24/2010 KT ENGLE ALLEN S 780.79 Fatigue 09/24/2010 KT PROGRAM MEDICAL DIRECTOR, ALLEN S 784.7 Epistaxis 09/24/2010 KT PROGRAM MEDICAL DIRECTOR, ALLEN S 796.2 Elevated Blood Pressure Reading Without Diagnosis Of Hypertension 09/24/2010 KT PROGRAM MEDICAL DIRECTOR, ALLEN S V18.0 Fam Hx Diabetes Mellitus 09/24/2010 KT PROGRAM MEDICAL DIRECTOR, ALLEN S 719.46 Pain In Joint Involving Lower Leg 09/24/2010 KT PROGRAM MEDICAL DIRECTOR, ALLEN S 780.79 Fatigue 09/24/2010 KT PROGRAM MEDICAL DIRECTOR, ALLEN S 784.7 Epistaxis 09/24/2010 KT PROGRAM MEDICAL DIRECTOR, ALLEN S 796.2 Elevated Blood Pressure Reading Without Diagnosis Of Hypertension 09/24/2010 KT PROGRAM MEDICAL DIRECTOR, ALLEN S V18.0 Fam Hx Diabetes Mellitus 09/24/2010 KT PROGRAM MEDICAL DIRECTOR, ALLEN S 719.46 Pain In Joint Involving Lower Leg 09/24/2010 KT PROGRAM MEDICAL DIRECTOR, ALLEN S 780.79 Fatigue 09/24/2010 KT PROGRAM MEDICAL DIRECTOR, ALLEN S 784.7 Epistaxis 09/24/2010 KT PROGRAM MEDICAL DIRECTOR, ALLEN S 796.2 Elevated Blood Pressure Reading Without Diagnosis Of Hypertension 09/24/2010 KT PROGRAM MEDICAL DIRECTOR, ALLEN S V18.0 Fam Hx Diabetes Mellitus 09/24/2010 KT PROGRAM MEDICAL DIRECTOR, ALLEN S 719.46 Pain In Joint Involving Lower Leg 09/24/2010 KT PROGRAM MEDICAL DIRECTOR, ALLEN S 780.79 Fatigue 09/24/2010 KT PROGRAM MEDICAL DIRECTOR, ALLEN S 784.7 Epistaxis 09/24/2010 KT PROGRAM MEDICAL DIRECTOR, ALLEN S 796.2 Elevated Blood Pressure Reading Without Diagnosis Of Hypertension 09/24/2010 KT PROGRAM MEDICAL DIRECTOR, ALLEN S V18.0 Fam Hx Diabetes Mellitus 09/24/2010 KT PROGRAM MEDICAL DIRECTOR, ALLEN S 719.46 Pain In Joint Involving Lower Leg 09/24/2010 KT PROGRAM MEDICAL DIRECTOR, ALLEN S 780.79 Fatigue 09/24/2010 KT PROGRAM MEDICAL DIRECTOR, ALLEN S 784.7 Epistaxis 09/24/2010 KT PROGRAM MEDICAL DIRECTOR, ALLNE S 796.2 Elevated Blood Pressure Reading Without Diagnosis Of Hypertension 09/24/2010 KT PROGRAM MEDICAL DIRECTOR, ALLEN S V18.0 Fam Hx Diabetes Mellitus 09/24/2010 KT PROGRAM MEDICAL DIRECTOR, ALLEN S 719.46 Pain In Joint Involving Lower Leg 09/24/2010 KT PROGRAM MEDICAL DIRECTOR, ALLEN S 780.79 Fatigue 09/24/2010 KT PROGRAM MEDICAL DIRECTOR, ALLEN S 784.7 Epistaxis 09/24/2010 KT PROGRAM MEDICAL DIRECTOR, ALLEN S 796.2 Elevated Blood Pressure Reading Without Diagnosis Of Hypertension 09/24/2010 KT PROGRAM MEDICAL DIRECTOR, ALLEN S V18.0 Fam Hx Diabetes Mellitus 09/29/2010 786.07 Wheezing 09/29/2010 EDU WILLOUGHBY DO 786.07 Wheezing 09/29/2010 MURIEL POST DO 786.07 Wheezing 09/29/2010 786.07 Wheezing 09/29/2010 786.07 Wheezing 09/29/2010 786.07 Wheezing 09/29/2010 786.07 Wheezing 09/29/2010 786.07 Wheezing 09/29/2010 KT PROGRAM MEDICAL DIRECTOR, ALLEN S 786.07 Wheezing 09/29/2010 EDU WILLOUGHBY DO 786.07 Wheezing 09/29/2010 MAYRA MARCUS APRN A 786.07 Wheezing 09/29/2010 JORDAN PARIS APRN 786.07 Wheezing 09/29/2010 KT PROGRAM MEDICAL DIRECTOR, ALLEN S 786.07 Wheezing 09/29/2010 786.07 Wheezing 09/29/2010 ALY BANKS APRN 786.07 Wheezing 09/29/2010 KT PROGRAM MEDICAL DIRECTOR, ALLEN S 786.07 Wheezing 09/29/2010 KT PROGRAM MEDICAL DIRECTOR, ALLEN S 786.07 Wheezing 09/29/2010 KT PROGRAM MEDICAL DIRECTOR, ALLEN S 786.07 Wheezing 09/29/2010 KT PROGRAM MEDICAL DIRECTOR, ALLEN S 786.07 Wheezing 09/29/2010 KT PROGRAM MEDICAL DIRECTOR, ALLEN S 786.07 Wheezing 09/29/2010 KT PROGRAM MEDICAL DIRECTOR, ALLEN S 786.07 Wheezing 09/29/2010 KT PROGRAM MEDICAL DIRECTOR, ALLEN S 786.07 Wheezing 09/29/2010 KT PROGRAM MEDICAL DIRECTOR, ALLEN S 786.07 Wheezing 09/29/2010 KT PROGRAM MEDICAL DIRECTOR, ALLEN S 786.07 Wheezing 10/08/2010 466.0 Bronchitis, Acute 10/08/2010 EDU WILLOUGHBY DO 466.0 Bronchitis, Acute 10/08/2010 MURIEL POST DO 466.0 Bronchitis, Acute 10/08/2010 466.0 Bronchitis, Acute 10/08/2010 466.0 Bronchitis, Acute 10/08/2010 466.0 Bronchitis, Acute 10/08/2010 466.0 Bronchitis, Acute 10/08/2010 466.0 Bronchitis, Acute 10/08/2010 KT PROGRAM MEDICAL DIRECTOR, ALLEN S 466.0 Bronchitis, Acute 10/08/2010 EDU WILLOUGHBY DO 466.0 Bronchitis, Acute 10/08/2010 AMRIT PROGRAM MEDICAL DIRECTOR, MAYRA A 466.0 Bronchitis, Acute 10/08/2010 PARIS PROGRAM MEDICAL DIRECTOR, JORDAN JOYNER 466.0 Bronchitis, Acute 10/08/2010 KT PROGRAM MEDICAL DIRECTOR, ALLEN S 466.0 Bronchitis, Acute 10/08/2010 466.0 Bronchitis, Acute 10/08/2010 JOCELYN PROGRAM MEDICAL DIRECTOR, ALY R 466.0 Bronchitis, Acute 10/08/2010 KT PROGRAM MEDICAL DIRECTOR, ALLEN S 466.0 Bronchitis, Acute 10/08/2010 KT PROGRAM MEDICAL DIRECTOR, ALLEN S 466.0 Bronchitis, Acute 10/08/2010 KT PROGRAM MEDICAL DIRECTOR, ALLEN S 466.0 Bronchitis, Acute 10/08/2010 KT PROGRAM MEDICAL DIRECTOR, ALLEN S 466.0 Bronchitis, Acute 10/08/2010 KT PROGRAM MEDICAL DIRECTOR, ALLEN S 466.0 Bronchitis, Acute 10/08/2010 KT PROGRAM MEDICAL DIRECTOR, ALLEN S 466.0 Bronchitis, Acute 10/08/2010 KT PROGRAM MEDICAL DIRECTOR, ALLEN S 466.0 Bronchitis, Acute 10/08/2010 KT PROGRAM MEDICAL DIRECTOR, ALLEN S 466.0 Bronchitis, Acute 10/08/2010 KT PROGRAM MEDICAL DIRECTOR, ALLEN S 466.0 Bronchitis, Acute 10/18/2010 836.0 [...] Or Meniscus Of Knee Current 10/18/2010 KT PROGRAM MEDICAL DIRECTOR, ALLEN S 836.0 Tear Of Medial Cartilage Or Meniscus Of Knee Current 10/18/2010 EDU WILLOUGHBY DO 836.0 Tear Of Medial Cartilage Or Meniscus Of Knee Current 10/18/2010 AMRIT PROGRAM MEDICAL DIRECTOR, MAYRA A 836.0 Tear Of Medial Cartilage Or Meniscus Of Knee Current 10/18/2010 WELLINGTON MILESNJORDAN 836.0 Tear Of Medial Cartilage Or Meniscus Of Knee Current 10/18/2010 KT PROGRAM MEDICAL DIRECTOR, ALLEN S 836.0 Tear Of Medial Cartilage Or Meniscus Of Knee Current 10/18/2010 836.0 Tear Of Medial Cartilage Or Meniscus Of Knee Current 10/18/2010 JOCELYN PROGRAM MEDICAL DIRECTORMAGIALY R 836.0 Tear Of Medial Cartilage Or Meniscus Of Knee Current 10/18/2010 KT PROGRAM MEDICAL DIRECTOR, ALLEN S 836.0 Tear Of Medial Cartilage Or Meniscus Of Knee Current 10/18/2010 KT PROGRAM MEDICAL DIRECTOR, ALLEN S 836.0 Tear Of Medial Cartilage Or Meniscus Of Knee Current 10/18/2010 KT PROGRAM MEDICAL DIRECTOR, ALLEN S 836.0 Tear Of Medial Cartilage Or Meniscus Of Knee Current 10/18/2010 KT PROGRAM MEDICAL DIRECTOR, ALLEN S 836.0 Tear Of Medial Cartilage Or Meniscus Of Knee Current 10/18/2010 KT PROGRAM MEDICAL DIRECTOR, ALLEN S 836.0 Tear Of Medial Cartilage Or Meniscus Of Knee Current 10/18/2010 KT PROGRAM MEDICAL DIRECTOR, ALLEN S 836.0 Tear Of Medial Cartilage Or Meniscus Of Knee Current 10/18/2010 KT PROGRAM MEDICAL DIRECTOR, ALLEN S 836.0 Tear Of Medial Cartilage Or Meniscus Of Knee Current 10/18/2010 KT PROGRAM MEDICAL DIRECTOR, ALLEN S 836.0 Tear Of Medial Cartilage Or Meniscus Of Knee Current 10/18/2010 ALLEN MERAZ APRN S 836.0 Tear Of Medial Cartilage Or Meniscus Of Knee Current 11/12/2010 401.9 HYPERTENSION, UNSPECIFIED ESSENTIAL 11/12/2010 627.9 Menopausal And Postmenopausal Disorder Unspecified 11/12/2010 EDU WILLOUGHBY DO K 401.9 HYPERTENSION, UNSPECIFIED ESSENTIAL 11/12/2010 EDU WILLOUGHBY DO K 627.9 Menopausal And Postmenopausal Disorder Unspecified 11/12/2010 EVERETTESHELTON MURIEL F 401.9 HYPERTENSION, UNSPECIFIED ESSENTIAL 11/12/2010 EVERETTESHELTON MURIEL F 627.9 Menopausal And Postmenopausal Disorder Unspecified 11/12/2010 [...] 627.9 Menopausal And Postmenopausal Disorder Unspecified 11/12/2010 KEYUR MERAZ APRNA S 401.9 HYPERTENSION, UNSPECIFIED ESSENTIAL 11/12/2010 BILLY MERAZ APRNNDA S 627.9 Menopausal And Postmenopausal Disorder Unspecified 11/12/2010 EDU WILLOUGHBY DO K 401.9 HYPERTENSION, UNSPECIFIED ESSENTIAL 11/12/2010 EDU WILLOUGHBY DO K 627.9 Menopausal And Postmenopausal Disorder Unspecified 11/12/2010 AMRITMarlene ENGLE MAYRA A 401.9 HYPERTENSION, UNSPECIFIED ESSENTIAL 11/12/2010 AMRIT ENGLE, MYARA A 627.9 Menopausal And Postmenopausal Disorder Unspecified 11/12/2010 JORDAN PARIS APRN 401.9 HYPERTENSION, UNSPECIFIED ESSENTIAL 11/12/2010 JORDAN PARIS APRN 627.9 Menopausal And Postmenopausal Disorder Unspecified 11/12/2010 BILLY MERAZ APRNNDA S 401.9 HYPERTENSION, UNSPECIFIED ESSENTIAL 11/12/2010 BILLY MERAZ APRNNDA S 627.9 Menopausal And Postmenopausal Disorder Unspecified 11/12/2010 401.9 HYPERTENSION, UNSPECIFIED ESSENTIAL 11/12/2010 627.9 Menopausal And Postmenopausal Disorder Unspecified 11/12/2010 JOCELYN PROGRAM MEDICAL DIRECTOR, ALY R 401.9 HYPERTENSION, UNSPECIFIED ESSENTIAL 11/12/2010 JOCELYN PROGRAM MEDICAL DIRECTOR, ALY R 627.9 Menopausal And Postmenopausal Disorder Unspecified 11/12/2010 KT PROGRAM MEDICAL DIRECTOR, ALLEN S 401.9 HYPERTENSION, UNSPECIFIED ESSENTIAL 11/12/2010 KT PROGRAM MEDICAL DIRECTOR, ALLEN S 627.9 Menopausal And Postmenopausal Disorder Unspecified 11/12/2010 KT PROGRAM MEDICAL DIRECTOR, ALLEN S 401.9 HYPERTENSION, UNSPECIFIED ESSENTIAL 11/12/2010 KT PROGRAM MEDICAL DIRECTOR, ALLEN S 627.9 Menopausal And Postmenopausal Disorder Unspecified 11/12/2010 KT PROGRAM MEDICAL DIRECTOR, ALLEN S 401.9 HYPERTENSION, UNSPECIFIED ESSENTIAL 11/12/2010 KT PROGRAM MEDICAL DIRECTOR, ALLEN S 627.9 Menopausal And Postmenopausal Disorder Unspecified 11/12/2010 KT PROGRAM MEDICAL DIRECTOR, ALLEN S 401.9 HYPERTENSION, UNSPECIFIED ESSENTIAL 11/12/2010 KT PROGRAM MEDICAL DIRECTOR, ALLEN S 627.9 Menopausal And Postmenopausal Disorder Unspecified 11/12/2010 KT PROGRAM MEDICAL DIRECTOR, ALLEN S 401.9 HYPERTENSION, UNSPECIFIED ESSENTIAL 11/12/2010 KT PROGRAM MEDICAL DIRECTOR, ALLEN S 627.9 Menopausal And Postmenopausal Disorder Unspecified 11/12/2010 KT PROGRAM MEDICAL DIRECTOR, ALLEN S 401.9 HYPERTENSION, UNSPECIFIED ESSENTIAL 11/12/2010 KT PROGRAM MEDICAL DIRECTOR, ALLEN S 627.9 Menopausal And Postmenopausal Disorder Unspecified 11/12/2010 KT PROGRAM MEDICAL DIRECTOR, ALLEN S 401.9 HYPERTENSION, UNSPECIFIED ESSENTIAL 11/12/2010 KT PROGRAM MEDICAL DIRECTOR, ALLEN S 627.9 Menopausal And Postmenopausal Disorder Unspecified 11/12/2010 KT PROGRAM MEDICAL DIRECTOR, ALLEN S 401.9 HYPERTENSION, UNSPECIFIED ESSENTIAL 11/12/2010 KT PROGRAM MEDICAL DIRECTOR, ALLEN S 627.9 Menopausal And Postmenopausal Disorder Unspecified 11/12/2010 KT PROGRAM MEDICAL DIRECTOR, ALLEN S 401.9 HYPERTENSION, UNSPECIFIED ESSENTIAL 11/12/2010 KT PROGRAM MEDICAL DIRECTOR, ALLEN S 627.9 Menopausal And Postmenopausal Disorder Unspecified 12/20/2010 461.9 Sinusitis Acute 12/20/2010 EDU WILLOUGHBY DO 461.9 Sinusitis Acute 12/20/2010 MURIEL POST DO 461.9 Sinusitis Acute 12/20/2010 461.9 Sinusitis Acute 12/20/2010 461.9 Sinusitis Acute 12/20/2010 461.9 Sinusitis Acute 12/20/2010 461.9 Sinusitis Acute 12/20/2010 461.9 Sinusitis Acute 12/20/2010 KT PROGRAM MEDICAL DIRECTOR, ALLEN S 461.9 Sinusitis Acute 12/20/2010 EDU WILLOUGHBY DO K 461.9 Sinusitis Acute 12/20/2010 MAYRA MARCUS APRN 461.9 Sinusitis Acute 12/20/2010 [place] ENGLE JORDAN JOYNER 461.9 Sinusitis Acute 12/20/2010 KT PROGRAM MEDICAL DIRECTOR, ALLEN S 461.9 Sinusitis Acute 12/20/2010 461.9 Sinusitis Acute 12/20/2010 MAGI BANKS APRNINA R 461.9 Sinusitis Acute 12/20/2010 KT PROGRAM MEDICAL DIRECTOR, ALLEN S 461.9 Sinusitis Acute 12/20/2010 KT PROGRAM MEDICAL DIRECTOR, ALLEN S 461.9 Sinusitis Acute 12/20/2010 KT PROGRAM MEDICAL DIRECTOR, ALLEN S 461.9 Sinusitis Acute 12/20/2010 KT PROGRAM MEDICAL DIRECTOR, ALLEN S 461.9 Sinusitis Acute 12/20/2010 KT PROGRAM MEDICAL DIRECTOR, ALLEN S 461.9 Sinusitis Acute 12/20/2010 KT PROGRAM MEDICAL DIRECTOR, ALLEN S 461.9 Sinusitis Acute 12/20/2010 KT PROGRAM MEDICAL DIRECTOR, ALLEN S 461.9 Sinusitis Acute 12/20/2010 KT PROGRAM MEDICAL DIRECTOR, ALLEN S 461.9 Sinusitis Acute 12/20/2010 KT PROGRAM MEDICAL DIRECTOR, ALLEN S 461.9 Sinusitis Acute 12/29/2010 112.1 Candidiasis Vaginal 12/29/2010 719.41 Pain In Joint Involving Shoulder Region 12/29/2010 799.02 Hypoxemia 12/29/2010 EDU WILLOUGHBY DO 112.1 Candidiasis Vaginal 12/29/2010 EDU WILLOUGHBY DO 719.41 Pain In Joint Involving Shoulder Region 12/29/2010 EDU WILLOUGHBY DO 799.02 Hypoxemia 12/29/2010 MURIEL POST DO 112.1 Candidiasis Vaginal 12/29/2010 WERMURIEL MARTINS DO 719.41 Pain In Joint Involving Shoulder [...] 12/29/2010 799.02 Hypoxemia 12/29/2010 ALLEN MERAZ APRN S 112.1 Candidiasis Vaginal 12/29/2010 ALLEN MERAZ APRN S 719.41 Pain In Joint Involving Shoulder Region 12/29/2010 ALLEN MERAZ APRN S 799.02 Hypoxemia 12/29/2010 EDU WILLOUGHBY DO 112.1 Candidiasis Vaginal 12/29/2010 EDU WILLOUGHBY DO 719.41 Pain In Joint Involving Shoulder Region 12/29/2010 EDU WILLOUGHBY DO K 799.02 Hypoxemia 12/29/2010 MAYRA MARCUS APRN A 112.1 Candidiasis Vaginal 12/29/2010 MAYRA MARCUS APRN A 719.41 Pain In Joint Involving Shoulder Region 12/29/2010 MAYRA MARCUS APRN A 799.02 Hypoxemia 12/29/2010 JORDAN PARIS APRN 112.1 Candidiasis Vaginal 12/29/2010 JORDAN PARIS APRN 719.41 Pain In Joint Involving Shoulder Region 12/29/2010 JORDAN PARIS APRN 799.02 Hypoxemia 12/29/2010 BILLY MERAZ APRNNDA S 112.1 Candidiasis Vaginal 12/29/2010 KEYUR MERAZ APRNA S 719.41 Pain In Joint Involving Shoulder Region 12/29/2010 BILLY MERAZ APRNNDA S 799.02 Hypoxemia 12/29/2010 112.1 Candidiasis Vaginal 12/29/2010 719.41 Pain In Joint Involving Shoulder Region 12/29/2010 799.02 Hypoxemia 12/29/2010 MAGI BANKS APRNINA R 112.1 Candidiasis Vaginal 12/29/2010 MAGI BANKS APRNINA R 719.41 Pain In Joint Involving Shoulder Region 12/29/2010 ALY BANKS APRN R 799.02 Hypoxemia 12/29/2010 KEYUR MERAZ APRNA S 112.1 Candidiasis Vaginal 12/29/2010 BILLY MERAZ APRNNDA S 719.41 Pain In Joint Involving Shoulder Region 12/29/2010 KEYUR MERAZ APRNA S 799.02 Hypoxemia 12/29/2010 KEYUR MERAZ APRNA S 112.1 Candidiasis Vaginal 12/29/2010 KEYUR MERAZ [...] BILLY MERAZ APRNNDA S 799.02 Hypoxemia 12/29/2010 KT PROGRAM MEDICAL DIRECTOR, ALLEN S 112.1 Candidiasis Vaginal 12/29/2010 KT PROGRAM MEDICAL DIRECTOR, ALLEN S 719.41 Pain In Joint Involving Shoulder Region 12/29/2010 KT ENGLE, ALLEN S 799.02 Hypoxemia 12/29/2010 KT PROGRAM MEDICAL DIRECTOR, ALLEN S 112.1 Candidiasis Vaginal 12/29/2010 KT PROGRAM MEDICAL DIRECTOR, ALLEN S 719.41 Pain In Joint Involving Shoulder Region 12/29/2010 KT ENGLE, ALLEN S 799.02 Hypoxemia 12/29/2010 KT PROGRAM MEDICAL DIRECTOR, ALLEN S 112.1 Candidiasis Vaginal 12/29/2010 KT PROGRAM MEDICAL DIRECTOR, ALLEN S 719.41 Pain In Joint Involving Shoulder Region 12/29/2010 TK ENGLE, ALLEN S 799.02 Hypoxemia 12/29/2010 KT PROGRAM MEDICAL DIRECTORBILLY RosarioNDA S 112.1 Candidiasis Vaginal 12/29/2010 KT PROGRAM MEDICAL DIRECTOR, ALLEN S 719.41 Pain In Joint Involving Shoulder Region 12/29/2010 BILLY MERAZ APRNNDA S 799.02 Hypoxemia 03/02/2011 333.94 RESTLESS LEGS [...] SYNDROME (RLS) 03/02/2011 719.40 Arthraigia Unspec 03/02/2011 BILLY MERAZ APRNNDA S 333.94 RESTLESS LEGS SYNDROME (RLS) 03/02/2011 BILLY MERAZ APRNNDA S 719.40 Arthraigia Unspec 03/02/2011 CASE RIVERA, EDU K 333.94 RESTLESS LEGS SYNDROME (RLS) 03/02/2011 WILLOUGHBY DO, EDU K 719.40 Arthraigia Unspec 03/02/2011 AMRIT ENGLE, MAYRA A 333.94 RESTLESS LEGS SYNDROME (RLS) 03/02/2011 AMRIT ENGLE, MAYRA A 719.40 Arthraigia Unspec 03/02/2011 [place] ENGLE JORDAN AR 333.94 RESTLESS LEGS SYNDROME (RLS) 03/02/2011 [place] ENGLE JORDAN AR 719.40 Arthraigia Unspec 03/02/2011 KEYUR MERAZ APRNA S 333.94 RESTLESS LEGS SYNDROME (RLS) 03/02/2011 BILLY MERAZ APRNNDA S 719.40 Arthraigia Unspec 03/02/2011 333.94 RESTLESS LEGS SYNDROME (RLS) 03/02/2011 719.40 Arthraigia Unspec 03/02/2011 JOCELYN ENGLE ALY R 333.94 RESTLESS LEGS SYNDROME (RLS) 03/02/2011 JOCELYN ENGLE ALY R 719.40 Arthraigia Unspec 03/02/2011 BILLY MERAZ APRNNDA S 333.94 RESTLESS LEGS SYNDROME (RLS) 03/02/2011 BILLY MERAZ APRNNDA S 719.40 Arthraigia Unspec 03/02/2011 KT ENGLE ALLEN S 333.94 RESTLESS LEGS SYNDROME (RLS) 03/02/2011 KT ENGLE ALLEN S 719.40 Arthraigia Unspec 03/02/2011 KT ENGLE, ALLEN S 333.94 RESTLESS LEGS SYNDROME (RLS) 03/02/2011 KT ENGLE ALLEN S 719.40 Arthraigia Unspec 03/02/2011 KT ENGLE ALLEN S 333.94 RESTLESS LEGS SYNDROME (RLS) 03/02/2011 KT ENGLE ALLEN S 719.40 Arthraigia Unspec 03/02/2011 KT PROGRAM MEDICAL DIRECTOR, ALLEN S 333.94 RESTLESS LEGS SYNDROME (RLS) 03/02/2011 KT PROGRAM MEDICAL DIRECTOR, ALLEN S 719.40 Arthraigia Unspec 03/02/2011 KT PROGRAM MEDICAL DIRECTOR, ALLEN S 333.94 RESTLESS LEGS SYNDROME (RLS) 03/02/2011 KT PROGRAM MEDICAL DIRECTOR, ALLEN S 719.40 Arthraigia Unspec 03/02/2011 KT PROGRAM MEDICAL DIRECTOR, ALLEN S 333.94 RESTLESS LEGS SYNDROME (RLS) 03/02/2011 KT PROGRAM MEDICAL DIRECTOR, ALLEN S 719.40 Arthraigia Unspec 03/02/2011 KT PROGRAM MEDICAL DIRECTOR, ALLEN S 333.94 RESTLESS LEGS SYNDROME (RLS) 03/02/2011 KT PROGRAM MEDICAL DIRECTOR, ALLEN S 719.40 Arthraigia Unspec 03/02/2011 KT PROGRAM MEDICAL DIRECTOR, ALLEN S 333.94 RESTLESS LEGS SYNDROME (RLS) 03/02/2011 KT ENGLE, ALLEN S 719.40 Arthraigia Unspec 05/09/2011 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 05/09/2011 EDU WILLOUGHBY DO 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 05/09/2011 MURIEL POST DO 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 05/09/2011 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 05/09/2011 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 05/09/2011 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 05/09/2011 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 05/09/2011 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 05/09/2011 KT ENGLE ALLEN S 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 05/09/2011 EDU WILLOUGHBY DO 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 05/09/2011 MAYRA MARCUS APRN 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 05/09/2011 JORDAN PARIS APRN 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 05/09/2011 BILLY MERAZ APRNNDA S 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 05/09/2011 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 05/09/2011 JOCELYN PROGRAM MEDICAL DIRECTOR, ALY R 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 05/09/2011 KT PROGRAM MEDICAL DIRECTOR, ALLEN S 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 05/09/2011 KT PROGRAM MEDICAL DIRECTOR, ALLEN S 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 05/09/2011 KT PROGRAM MEDICAL DIRECTOR, ALLEN S 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 05/09/2011 KT PROGRAM MEDICAL DIRECTOR, ALLEN S 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 05/09/2011 KT PROGRAM MEDICAL DIRECTOR, ALLEN S 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 05/09/2011 KT PROGRAM MEDICAL DIRECTOR, ALLEN S 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 05/09/2011 KT PROGRAM MEDICAL DIRECTOR, ALLEN S 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 05/09/2011 KT PROGRAM MEDICAL DIRECTOR, ALLEN S 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 05/09/2011 KT PROGRAM MEDICAL DIRECTOR, ALLEN S 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 [...] 05/24/2011 307.47 SI DYSSOMNIA NOS 05/24/2011 KT PROGRAM MEDICAL DIRECTOR, ALLEN S 300.00 An Anxiety Unspec 05/24/2011 KT PROGRAM MEDICAL DIRECTOR, ALLEN S 307.47 SI DYSSOMNIA NOS 05/24/2011 [place] DOEDU K 300.00 An Anxiety Unspec 05/24/2011 [place] DO, EDU K 307.47 SI DYSSOMNIA NOS 05/24/2011 [place] PROGRAM MEDICAL DIRECTOR, MAYRA A 300.00 An Anxiety Unspec 05/24/2011 [place] PROGRAM MEDICAL DIRECTOR, MAYRA A 307.47 SI DYSSOMNIA NOS 05/24/2011 [place] PROGRAM MEDICAL DIRECTORJORDAN 300.00 An Anxiety Unspec 05/24/2011 [place] PROGRAM MEDICAL DIRECTORJORDAN 307.47 SI DYSSOMNIA NOS 05/24/2011 KT PROGRAM MEDICAL DIRECTOR, ALLEN S 300.00 An Anxiety Unspec 05/24/2011 KT PROGRAM MEDICAL DIRECTOR, ALLEN S 307.47 SI DYSSOMNIA NOS 05/24/2011 300.00 An Anxiety Unspec 05/24/2011 307.47 SI DYSSOMNIA NOS 05/24/2011 JOCELYN PROGRAM MEDICAL DIRECTOR, ALY R 300.00 An Anxiety Unspec 05/24/2011 JOCELYN PROGRAM MEDICAL DIRECTOR, ALY R 307.47 SI DYSSOMNIA NOS 05/24/2011 KT PROGRAM MEDICAL DIRECTOR, ALLEN S 300.00 An Anxiety Unspec 05/24/2011 KT PROGRAM MEDICAL DIRECTOR, ALLEN S 307.47 SI DYSSOMNIA NOS 05/24/2011 KT PROGRAM MEDICAL DIRECTOR, ALLEN S 300.00 An Anxiety Unspec 05/24/2011 KT PROGRAM MEDICAL DIRECTOR, ALLEN S 307.47 SI DYSSOMNIA NOS 05/24/2011 KT PROGRAM MEDICAL DIRECTOR, ALLEN S 300.00 An Anxiety Unspec 05/24/2011 KT PROGRAM MEDICAL DIRECTOR, ALLEN S 307.47 SI DYSSOMNIA NOS 05/24/2011 KT PROGRAM MEDICAL DIRECTOR, ALLEN S 300.00 An Anxiety Unspec 05/24/2011 TK PROGRAM MEDICAL DIRECTOR, ALLEN S 307.47 SI DYSSOMNIA NOS 05/24/2011 KT PROGRAM MEDICAL DIRECTOR, ALLEN S 300.00 An Anxiety Unspec 05/24/2011 KT PROGRAM MEDICAL DIRECTOR, ALLEN S 307.47 SI DYSSOMNIA NOS 05/24/2011 KT PROGRAM MEDICAL DIRECTOR, ALLEN S 300.00 An Anxiety Unspec 05/24/2011 KT PROGRAM MEDICAL DIRECTOR, ALLEN S 307.47 SI DYSSOMNIA NOS 05/24/2011 KT PROGRAM MEDICAL DIRECTOR, ALLEN S 300.00 An Anxiety Unspec 05/24/2011 KT PROGRAM MEDICAL DIRECTOR, ALLEN S 307.47 SI DYSSOMNIA NOS 05/24/2011 KT PROGRAM MEDICAL DIRECTOR, ALLEN S 300.00 An Anxiety Unspec 05/24/2011 KT PROGRAM MEDICAL DIRECTOR, ALLEN S 307.47 SI DYSSOMNIA NOS 05/24/2011 KT PROGRAM MEDICAL DIRECTOR, ALLEN S 300.00 An Anxiety Unspec 05/24/2011 KT PROGRAM MEDICAL DIRECTOR, ALLEN S 307.47 SI DYSSOMNIA NOS 06/11/2011 465.9 Acute Upper Respiratory Infections Of Unspecified Site 06/11/2011 466.0 ACUTE BRONCHITIS 06/11/2011 EDU WILLOUGHBY DO K 465.9 Acute Upper Respiratory Infections Of Unspecified Site 06/11/2011 EDU WILLOUGHBY DO 466.0 ACUTE BRONCHITIS 06/11/2011 MURIEL POST DO [...] Site 06/11/2011 466.0 ACUTE BRONCHITIS 06/11/2011 KT PROGRAM MEDICAL DIRECTOR, ALLEN S 465.9 Acute Upper Respiratory Infections Of Unspecified Site 06/11/2011 KT PROGRAM MEDICAL DIRECTOR, ALLEN S 466.0 ACUTE BRONCHITIS 06/11/2011 EDU WILLOUGHBY DO K 465.9 Acute Upper Respiratory Infections Of Unspecified Site 06/11/2011 EDU WILLOUGHBY DO K 466.0 ACUTE BRONCHITIS 06/11/2011 AMRIT PROGRAM MEDICAL DIRECTOR, MAYRA A 465.9 Acute Upper Respiratory Infections Of Unspecified Site 06/11/2011 AMRIT PROGRAM MEDICAL DIRECTOR, MAYRA A 466.0 ACUTE BRONCHITIS 06/11/2011 [place] PROGRAM MEDICAL DIRECTOR, JORDAN JOYNER 465.9 Acute Upper Respiratory Infections Of Unspecified Site 06/11/2011 [place] PROGRAM MEDICAL DIRECTOR, JORDAN JOYNER 466.0 ACUTE BRONCHITIS 06/11/2011 KT PROGRAM MEDICAL DIRECTOR, ALLEN S 465.9 Acute Upper Respiratory Infections Of Unspecified Site 06/11/2011 KT PROGRAM MEDICAL DIRECTOR, ALLEN S 466.0 ACUTE BRONCHITIS 06/11/2011 465.9 Acute Upper Respiratory Infections Of Unspecified Site 06/11/2011 466.0 ACUTE BRONCHITIS 06/11/2011 JOCELYN PROGRAM MEDICAL DIRECTOR, ALY R 465.9 Acute Upper Respiratory Infections Of Unspecified Site 06/11/2011 JOCELYN PROGRAM MEDICAL DIRECTOR, ALY R 466.0 ACUTE BRONCHITIS 06/11/2011 KT PROGRAM MEDICAL DIRECTOR, ALLEN S 465.9 Acute Upper Respiratory Infections Of Unspecified Site 06/11/2011 KT PROGRAM MEDICAL DIRECTOR, ALLEN S 466.0 ACUTE BRONCHITIS 06/11/2011 KT PROGRAM MEDICAL DIRECTOR, ALLEN S 465.9 Acute Upper Respiratory Infections Of Unspecified Site 06/11/2011 KT PROGRAM MEDICAL DIRECTOR, ALLEN S 466.0 ACUTE BRONCHITIS 06/11/2011 KT PROGRAM MEDICAL DIRECTOR, ALLEN S 465.9 Acute Upper Respiratory Infections Of Unspecified Site 06/11/2011 KT PROGRAM MEDICAL DIRECTOR, ALLEN S 466.0 ACUTE BRONCHITIS 06/11/2011 KT PROGRAM MEDICAL DIRECTOR, ALLEN S 465.9 Acute Upper Respiratory Infections Of Unspecified Site 06/11/2011 KT PROGRAM MEDICAL DIRECTOR, ALLEN S 466.0 ACUTE BRONCHITIS 06/11/2011 KT PROGRAM MEDICAL DIRECTOR, ALLEN S 465.9 Acute Upper Respiratory Infections Of Unspecified Site 06/11/2011 KT PROGRAM MEDICAL DIRECTOR, ALLEN S 466.0 ACUTE BRONCHITIS 06/11/2011 KT PROGRAM MEDICAL DIRECTOR, ALLEN S 465.9 Acute Upper Respiratory Infections Of Unspecified Site 06/11/2011 KT PROGRAM MEDICAL DIRECTOR, ALLEN S 466.0 ACUTE BRONCHITIS 06/11/2011 KT PROGRAM MEDICAL DIRECTOR, ALLEN S 465.9 Acute Upper Respiratory Infections Of Unspecified Site 06/11/2011 KT PROGRAM MEDICAL DIRECTOR, ALLEN S 466.0 ACUTE BRONCHITIS 06/11/2011 KT PROGRAM MEDICAL DIRECTOR, ALLEN S 465.9 Acute Upper Respiratory Infections Of Unspecified Site 06/11/2011 KT PROGRAM MEDICAL DIRECTOR, ALLEN S 466.0 ACUTE BRONCHITIS 06/11/2011 KT PROGRAM MEDICAL DIRECTOR, ALLEN S 465.9 Acute Upper Respiratory Infections Of Unspecified Site 06/11/2011 BILLY MERAZ APRNNDA S 466.0 ACUTE BRONCHITIS 07/03/2011 300.00 AN ANXIETY UNSPEC 07/03/2011 EDU WILLOUGHBY DO K 300.00 AN ANXIETY UNSPEC 07/03/2011 MURIEL POST DO 300.00 AN ANXIETY UNSPEC 07/03/2011 300.00 AN ANXIETY UNSPEC 07/03/2011 300.00 AN ANXIETY UNSPEC 07/03/2011 300.00 AN ANXIETY UNSPEC 07/03/2011 300.00 AN ANXIETY UNSPEC 07/03/2011 300.00 AN ANXIETY UNSPEC 07/03/2011 KEYUR MERAZ APRNA S 300.00 AN ANXIETY UNSPEC 07/03/2011 EDU WILLOUGHBY DO K 300.00 AN ANXIETY UNSPEC 07/03/2011 MAYRA MARCUS APRN A 300.00 AN ANXIETY UNSPEC 07/03/2011 [place] APRN, JORDAN JOYNER 300.00 AN ANXIETY UNSPEC 07/03/2011 KEYUR MERAZ APRNA S 300.00 AN ANXIETY UNSPEC 07/03/2011 300.00 AN ANXIETY UNSPEC 07/03/2011 ALY BANKS APRN R 300.00 AN ANXIETY UNSPEC 07/03/2011 KEYUR MERAZ APRNA S 300.00 AN ANXIETY UNSPEC 07/03/2011 BILLY [...] S 300.00 AN ANXIETY UNSPEC 07/03/2011 KT PROGRAM MEDICAL DIRECTOR, ALLEN S 300.00 AN ANXIETY UNSPEC 10/04/2011 466.0 Bronchitis, Acute 10/04/2011 EDU WILLOUGHBY DO 466.0 Bronchitis, Acute 10/04/2011 MURIEL POST DO 466.0 Bronchitis, Acute 10/04/2011 466.0 Bronchitis, Acute 10/04/2011 466.0 Bronchitis, Acute 10/04/2011 466.0 Bronchitis, Acute 10/04/2011 466.0 Bronchitis, Acute 10/04/2011 466.0 Bronchitis, Acute 10/04/2011 KT PROGRAM MEDICAL DIRECTOR, ALLEN S 466.0 Bronchitis, Acute 10/04/2011 EDU WILLOUGHBY DO 466.0 Bronchitis, Acute 10/04/2011 AMRIT PROGRAM MEDICAL DIRECTOR, MAYRA A 466.0 Bronchitis, Acute 10/04/2011 [place] PROGRAM MEDICAL DIRECTOR, JORDAN AR 466.0 Bronchitis, Acute 10/04/2011 KT PROGRAM MEDICAL DIRECTOR, ALLEN S 466.0 Bronchitis, Acute 10/04/2011 466.0 Bronchitis, Acute 10/04/2011 JOCELYN PROGRAM MEDICAL DIRECTOR, ALY R 466.0 Bronchitis, Acute 10/04/2011 KT PROGRAM MEDICAL DIRECTOR, ALLEN S 466.0 Bronchitis, Acute 10/04/2011 KT PROGRAM MEDICAL DIRECTOR, ALLEN S 466.0 Bronchitis, Acute 10/04/2011 KT PROGRAM MEDICAL DIRECTOR, ALLEN S 466.0 Bronchitis, Acute 10/04/2011 KT PROGRAM MEDICAL DIRECTOR, ALLEN S 466.0 Bronchitis, Acute 10/04/2011 KT PROGRAM MEDICAL DIRECTOR, ALLEN S 466.0 Bronchitis, Acute 10/04/2011 KT PROGRAM MEDICAL DIRECTOR, ALLEN S 466.0 Bronchitis, Acute 10/04/2011 KT PROGRAM MEDICAL DIRECTOR, ALLEN S 466.0 Bronchitis, Acute 10/04/2011 KT PROGRAM MEDICAL DIRECTOR, ALLEN S 466.0 Bronchitis, Acute 10/04/2011 KT PROGRAM MEDICAL DIRECTOR, ALLEN S 466.0 Bronchitis, Acute 10/08/2011 296.30 MO DEPRESSIVE RECURRENT UNSPECIFIED 10/08/2011 EDU WILLOUGHBY DO 296.30 MO DEPRESSIVE RECURRENT UNSPECIFIED 10/08/2011 MURIEL POST DO 296.30 MO DEPRESSIVE RECURRENT UNSPECIFIED 10/08/2011 296.30 MO DEPRESSIVE RECURRENT UNSPECIFIED 10/08/2011 296.30 MO DEPRESSIVE RECURRENT UNSPECIFIED 10/08/2011 296.30 MO DEPRESSIVE RECURRENT UNSPECIFIED 10/08/2011 296.30 MO DEPRESSIVE RECURRENT UNSPECIFIED 10/08/2011 296.30 MO DEPRESSIVE RECURRENT UNSPECIFIED 10/08/2011 KT EGNLE ALLEN S 296.30 MO DEPRESSIVE RECURRENT UNSPECIFIED 10/08/2011 EDU WILLOUGHBY DO 296.30 MO DEPRESSIVE RECURRENT UNSPECIFIED 10/08/2011 AMRITAVRIL ENGLE, MAYRA A 296.30 MO DEPRESSIVE RECURRENT UNSPECIFIED 10/08/2011 [place] ONIEL JORDAN JOYNER 296.30 MO DEPRESSIVE RECURRENT UNSPECIFIED 10/08/2011 KT ENGLE ALLEN S 296.30 MO DEPRESSIVE RECURRENT UNSPECIFIED 10/08/2011 296.30 MO DEPRESSIVE RECURRENT UNSPECIFIED 10/08/2011 ALY BANKS APRN R 296.30 MO DEPRESSIVE RECURRENT UNSPECIFIED 10/08/2011 KT ENGLE ALLEN S 296.30 MO DEPRESSIVE RECURRENT UNSPECIFIED 10/08/2011 KT ENGLE ALLEN S 296.30 MO DEPRESSIVE RECURRENT UNSPECIFIED 10/08/2011 KT PROGRAM MEDICAL DIRECTOR, ALLEN S 296.30 MO DEPRESSIVE RECURRENT UNSPECIFIED 10/08/2011 KT ENGLE ALLEN S 296.30 MO DEPRESSIVE RECURRENT UNSPECIFIED 10/08/2011 KT PROGRAM MEDICAL DIRECTOR, ALLEN S 296.30 MO DEPRESSIVE RECURRENT UNSPECIFIED 10/08/2011 KT PROGRAM MEDICAL DIRECTOR, ALLEN S 296.30 MO DEPRESSIVE RECURRENT UNSPECIFIED 10/08/2011 KT ENGLE, ALLEN S 296.30 MO DEPRESSIVE RECURRENT UNSPECIFIED 10/08/2011 KT ENGLE, ALLEN S 296.30 MO DEPRESSIVE RECURRENT UNSPECIFIED 10/08/2011 KT ENGLE, ALLEN S 296.30 MO DEPRESSIVE RECURRENT UNSPECIFIED [...] And 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 01/06/2012 ALLEN MERAZ APRN S 461.9 Sinusitis Acute 01/06/2012 ALLEN MERAZ APRN S 692.2 Contact Dermatitis And 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 01/06/2012 EDU WILLOUGHBY DO K 461.9 Sinusitis Acute 01/06/2012 EDU WILLOUGHBY DO K 692.2 Contact Dermatitis And 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 01/06/2012 ROMEL MARCUS APRNIDI A 461.9 Sinusitis Acute 01/06/2012 ROMEL MARCUS APRNIDI A 692.2 Contact Dermatitis And 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 01/06/2012 [place] ENGLE JORDAN JOYNER 461.9 Sinusitis Acute 01/06/2012 [place] ENGLEJORDAN 692.2 Contact Dermatitis And 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 01/06/2012 KEYUR MERAZ APRNA S 461.9 Sinusitis Acute 01/06/2012 KEYUR MERAZ APRNA S 692.2 Contact Dermatitis And 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 01/06/2012 461.9 Sinusitis Acute 01/06/2012 692.2 Contact Dermatitis And 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 01/06/2012 JOCELYN ENGLE ALY R 461.9 Sinusitis Acute 01/06/2012 JOCELYN ENGLE ALY R 692.2 Contact Dermatitis And 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 01/06/2012 KEYUR MERAZ APRNA S 461.9 Sinusitis Acute 01/06/2012 KT PROGRAM MEDICAL DIRECTOR, ALLEN S 692.2 Contact Dermatitis And 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 01/06/2012 KT PROGRAM MEDICAL DIRECTOR, ALLEN S 461.9 Sinusitis Acute 01/06/2012 KT PROGRAM MEDICAL DIRECTOR, ALLEN S 692.2 Contact Dermatitis And 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 01/06/2012 KT PROGRAM MEDICAL DIRECTOR, ALLEN S 461.9 Sinusitis Acute 01/06/2012 KT PROGRAM MEDICAL DIRECTOR ALLEN S 692.2 Contact Dermatitis And 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 01/06/2012 KT PROGRAM MEDICAL DIRECTOR, ALLEN S 461.9 Sinusitis Acute 01/06/2012 KT PROGRAM MEDICAL DIRECTOR, ALLEN S 692.2 Contact Dermatitis And 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 01/06/2012 KT PROGRAM MEDICAL DIRECTOR, ALLEN S 461.9 Sinusitis Acute 01/06/2012 KT PROGRAM MEDICAL DIRECTOR ALLEN S 692.2 Contact Dermatitis And 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 01/06/2012 KT PROGRAM MEDICAL DIRECTOR, ALLEN S 461.9 Sinusitis Acute 01/06/2012 KT PROGRAM MEDICAL DIRECTOR, ALLEN S 692.2 Contact Dermatitis And 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 01/06/2012 KT PROGRAM MEDICAL DIRECTOR, ALLEN S 461.9 Sinusitis Acute 01/06/2012 KT PROGRAM MEDICAL DIRECTOR, ALLEN S 692.2 Contact Dermatitis And 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 01/06/2012 KT PROGRAM MEDICAL DIRECTOR, ALLEN S 461.9 Sinusitis Acute 01/06/2012 KT PROGRAM MEDICAL DIRECTOR ALLEN S 692.2 Contact Dermatitis And 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 01/06/2012 KT PROGRAM MEDICAL DIRECTOR, ALLEN S 461.9 Sinusitis Acute 01/06/2012 KT PROGRAM MEDICAL DIRECTOR, ALLEN S 692.2 Contact Dermatitis And Other [...] OF SKIN AND SUBCUTANEOUS TISSUE 01/13/2012 KT PROGRAM MEDICAL DIRECTOR, ALLEN S 709.9 UNSPECIFIED DISORDER OF SKIN AND SUBCUTANEOUS TISSUE 01/13/2012 EDU WILLOUGHBY DO 709.9 UNSPECIFIED DISORDER OF SKIN AND SUBCUTANEOUS TISSUE 01/13/2012 AMRIT PROGRAM MEDICAL DIRECTORMAYRA A 709.9 UNSPECIFIED DISORDER OF SKIN AND SUBCUTANEOUS TISSUE 01/13/2012 [place] ENGLE JORDAN RHODESH 709.9 UNSPECIFIED DISORDER OF SKIN AND SUBCUTANEOUS TISSUE 01/13/2012 KT ENGLE ALLEN S 709.9 UNSPECIFIED DISORDER OF SKIN AND SUBCUTANEOUS TISSUE 01/13/2012 709.9 UNSPECIFIED DISORDER OF SKIN AND SUBCUTANEOUS TISSUE 01/13/2012 ALY BANKS APRN 709.9 UNSPECIFIED DISORDER OF SKIN AND SUBCUTANEOUS TISSUE 01/13/2012 KT PROGRAM MEDICAL DIRECTOR ALLEN S 709.9 UNSPECIFIED DISORDER OF SKIN AND SUBCUTANEOUS TISSUE 01/13/2012 KT PROGRAM MEDICAL DIRECTOR, ALLEN S 709.9 UNSPECIFIED DISORDER OF SKIN AND SUBCUTANEOUS TISSUE 01/13/2012 KT PROGRAM MEDICAL DIRECTOR, ALLEN S 709.9 UNSPECIFIED DISORDER OF SKIN AND SUBCUTANEOUS TISSUE 01/13/2012 KT PROGRAM MEDICAL DIRECTOR, ALLEN S 709.9 UNSPECIFIED DISORDER OF SKIN AND SUBCUTANEOUS TISSUE 01/13/2012 KT PROGRAM MEDICAL DIRECTOR, ALLEN S 709.9 UNSPECIFIED DISORDER OF SKIN AND SUBCUTANEOUS TISSUE 01/13/2012 KT PROGRAM MEDICAL DIRECTOR, ALLEN S 709.9 UNSPECIFIED DISORDER OF SKIN AND SUBCUTANEOUS TISSUE 01/13/2012 KT PROGRAM MEDICAL DIRECTOR, ALLEN S 709.9 UNSPECIFIED DISORDER OF SKIN AND SUBCUTANEOUS TISSUE 01/13/2012 KT PROGRAM MEDICAL DIRECTOR, ALLEN S 709.9 UNSPECIFIED DISORDER OF SKIN AND SUBCUTANEOUS TISSUE 01/13/2012 KT PROGRAM MEDICAL DIRECTOR, ALLEN S 709.9 UNSPECIFIED DISORDER OF SKIN [...] 296.32 MO DEPRESSIVE RECURRENT MODERATE 01/15/2012 KT ENGLE ALLEN S 296.32 MO DEPRESSIVE RECURRENT MODERATE 01/15/2012 EDU WILLOUGHBY DO 296.32 MO DEPRESSIVE RECURRENT MODERATE 01/15/2012 AMRIT ENGLE MAYRA A 296.32 MO DEPRESSIVE RECURRENT MODERATE 01/15/2012 [place] APRN, JORDAN JOYNER 296.32 MO DEPRESSIVE RECURRENT MODERATE 01/15/2012 KT ENGLE ALLEN S 296.32 MO DEPRESSIVE RECURRENT MODERATE 01/15/2012 296.32 MO DEPRESSIVE RECURRENT MODERATE 01/15/2012 MAGI BANKS APRNINA R 296.32 MO DEPRESSIVE RECURRENT MODERATE 01/15/2012 KT ENGLE ALLEN S 296.32 MO DEPRESSIVE RECURRENT MODERATE 01/15/2012 KT MILESN, ALLEN S 296.32 MO DEPRESSIVE RECURRENT MODERATE 01/15/2012 KT ENGLE, ALLEN S 296.32 MO DEPRESSIVE RECURRENT MODERATE 01/15/2012 KT ENGLE, ALLEN S 296.32 MO DEPRESSIVE RECURRENT MODERATE 01/15/2012 TK ENGLE, ALLEN S 296.32 MO DEPRESSIVE RECURRENT MODERATE 01/15/2012 KT ENGLE ALLEN S 296.32 MO DEPRESSIVE RECURRENT MODERATE 01/15/2012 KT ENGLE ALLEN S 296.32 MO DEPRESSIVE RECURRENT MODERATE [...] V76.2 CERVICAL CANCER SCREENING (PAP SMEAR) 03/26/2012 ALLEN MERAZ APRN S V76.19 OTHER SCREENING BREAST EXAMINATION 03/26/2012 ALLEN MERAZ APRN S V76.2 CERVICAL CANCER SCREENING (PAP SMEAR) 03/26/2012 EDU WILLOUGHBY DO V76.19 OTHER SCREENING BREAST EXAMINATION 03/26/2012 EDU WILLOUGHBY DO V76.2 CERVICAL CANCER SCREENING (PAP SMEAR) 03/26/2012 MAYRA MARCUS APRN A V76.19 OTHER SCREENING BREAST EXAMINATION 03/26/2012 MAYRA MARCUS APRN V76.2 CERVICAL CANCER SCREENING (PAP SMEAR) 03/26/2012 JORDAN [place] APRN V76.19 OTHER SCREENING BREAST EXAMINATION 03/26/2012 JORDAN [place] APRN V76.2 CERVICAL CANCER SCREENING (PAP SMEAR) 03/26/2012 ALLEN MERAZ APRN S V76.19 OTHER SCREENING BREAST EXAMINATION 03/26/2012 ALLEN MERAZ APRN S V76.2 CERVICAL CANCER SCREENING (PAP SMEAR) 03/26/2012 V76.19 OTHER SCREENING BREAST EXAMINATION 03/26/2012 V76.2 CERVICAL CANCER SCREENING (PAP SMEAR) 03/26/2012 ALY BANKS APRN R V76.19 OTHER SCREENING BREAST EXAMINATION 03/26/2012 ALY BANKS APRN R V76.2 CERVICAL CANCER SCREENING (PAP SMEAR) 03/26/2012 ALLEN MERAZ APRN S V76.19 OTHER SCREENING BREAST EXAMINATION 03/26/2012 KT PROGRAM MEDICAL DIRECTOR, ALLEN S V76.2 CERVICAL CANCER SCREENING (PAP SMEAR) 03/26/2012 KT PROGRAM MEDICAL DIRECTOR, ALLEN S V76.19 OTHER SCREENING BREAST EXAMINATION 03/26/2012 KT PROGRAM MEDICAL DIRECTOR, ALLEN S V76.2 CERVICAL CANCER SCREENING (PAP SMEAR) 03/26/2012 KT PROGRAM MEDICAL DIRECTOR ALLEN S V76.19 OTHER SCREENING BREAST EXAMINATION 03/26/2012 KT PROGRAM MEDICAL DIRECTOR, ALLEN S V76.2 CERVICAL CANCER SCREENING (PAP SMEAR) 03/26/2012 KT PROGRAM MEDICAL DIRECTOR ALLEN S V76.19 OTHER SCREENING BREAST EXAMINATION 03/26/2012 KT PROGRAM MEDICAL DIRECTOR ALLEN S V76.2 CERVICAL CANCER SCREENING (PAP SMEAR) 03/26/2012 KT PROGRAM MEDICAL DIRECTOR ALLEN S V76.19 OTHER SCREENING BREAST EXAMINATION 03/26/2012 KT PROGRAM MEDICAL DIRECTOR, ALLEN S V76.2 CERVICAL CANCER SCREENING (PAP SMEAR) 03/26/2012 KT PROGRAM MEDICAL DIRECTOR, ALLEN S V76.19 OTHER SCREENING BREAST EXAMINATION 03/26/2012 KT PROGRAM MEDICAL DIRECTOR, ALLEN S V76.2 CERVICAL CANCER SCREENING (PAP SMEAR) 03/26/2012 KT PROGRAM MEDICAL DIRECTOR, ALLEN S V76.19 OTHER SCREENING BREAST EXAMINATION 03/26/2012 KT PROGRAM MEDICAL DIRECTOR, ALLEN S V76.2 CERVICAL CANCER SCREENING (PAP SMEAR) 03/26/2012 KT PROGRAM MEDICAL DIRECTOR, ALLEN S V76.19 OTHER SCREENING BREAST EXAMINATION 03/26/2012 KT PROGRAM MEDICAL DIRECTOR, ALLEN S V76.2 CERVICAL CANCER SCREENING (PAP SMEAR) 03/26/2012 KT PROGRAM MEDICAL DIRECTOR, ALLEN S V76.19 OTHER SCREENING BREAST EXAMINATION 03/26/2012 KT PROGRAM MEDICAL DIRECTOR, ALLEN S V76.2 CERVICAL CANCER SCREENING (PAP [...] 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 04/30/2012 KT PROGRAM MEDICAL DIRECTOR, ALLEN S 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 04/30/2012 EDU WILLOUGHBY DO K 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 04/30/2012 AMRIT MILESN, MAYRA A 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 04/30/2012 [place] PROGRAM MEDICAL DIRECTOR JORDAN JOYNER 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 04/30/2012 KT PROGRAM MEDICAL DIRECTOR, ALLEN S 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 04/30/2012 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 04/30/2012 JOCELYN ENGLE, ALY R 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 04/30/2012 KT MILESN, ALLEN S 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 04/30/2012 KT PROGRAM MEDICAL DIRECTOR, ALLEN S 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 04/30/2012 KT PROGRAM MEDICAL DIRECTOR, ALLEN S 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 04/30/2012 KT MILESN, ALLEN S 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 04/30/2012 KT PROGRAM MEDICAL DIRECTOR, ALLEN S 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 04/30/2012 KT MILESN, ALLEN S 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 04/30/2012 KT MILESN, ALLEN S 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 04/30/2012 KT PROGRAM MEDICAL DIRECTOR, ALLEN S 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 04/30/2012 KT MILESN, ALLEN S 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 06/13/2012 461.9 ACUTE SINUSITIS UNSPECIFIED 06/13/2012 466.0 ACUTE BRONCHITIS 06/13/2012 EDU WILLOUGHBY DO 461.9 ACUTE SINUSITIS UNSPECIFIED 06/13/2012 EDU WILLOUGHBY DO 466.0 ACUTE BRONCHITIS 06/13/2012 WERDER DO, MURIEL F 461.9 ACUTE SINUSITIS UNSPECIFIED 06/13/2012 MURIEL POST DO F 466.0 ACUTE BRONCHITIS 06/13/2012 461.9 ACUTE SINUSITIS UNSPECIFIED 06/13/2012 466.0 ACUTE BRONCHITIS 06/13/2012 461.9 ACUTE SINUSITIS UNSPECIFIED 06/13/2012 466.0 ACUTE BRONCHITIS 06/13/2012 461.9 ACUTE SINUSITIS UNSPECIFIED 06/13/2012 466.0 ACUTE BRONCHITIS 06/13/2012 461.9 ACUTE SINUSITIS UNSPECIFIED 06/13/2012 466.0 ACUTE BRONCHITIS 06/13/2012 461.9 ACUTE SINUSITIS UNSPECIFIED 06/13/2012 466.0 ACUTE BRONCHITIS 06/13/2012 KT PROGRAM MEDICAL DIRECTOR, ALLEN S 461.9 ACUTE SINUSITIS UNSPECIFIED 06/13/2012 KT PROGRAM MEDICAL DIRECTOR, ALLEN S 466.0 ACUTE BRONCHITIS 06/13/2012 WILLOUGHBY DO EDU K 461.9 ACUTE SINUSITIS UNSPECIFIED 06/13/2012 WILLOUGHBY DO, EDU K 466.0 ACUTE BRONCHITIS 06/13/2012 AMRIT PROGRAM MEDICAL DIRECTOR, MAYRA A 461.9 ACUTE SINUSITIS UNSPECIFIED 06/13/2012 AMRIT PROGRAM MEDICAL DIRECTOR, MAYRA A 466.0 ACUTE BRONCHITIS 06/13/2012 [place] PROGRAM MEDICAL DIRECTOR, JORDAN JOYNER 461.9 ACUTE SINUSITIS UNSPECIFIED 06/13/2012 [place] PROGRAM MEDICAL DIRECTOR, JORDAN JOYNER 466.0 ACUTE BRONCHITIS 06/13/2012 KT PROGRAM MEDICAL DIRECTOR, ALLEN S 461.9 ACUTE SINUSITIS UNSPECIFIED 06/13/2012 KT PROGRAM MEDICAL DIRECTOR, ALLEN S 466.0 ACUTE BRONCHITIS 06/13/2012 461.9 ACUTE SINUSITIS UNSPECIFIED 06/13/2012 466.0 ACUTE BRONCHITIS 06/13/2012 JOCELYN PROGRAM MEDICAL DIRECTOR, ALY R 461.9 ACUTE SINUSITIS UNSPECIFIED 06/13/2012 JOCELYN PROGRAM MEDICAL DIRECTOR, ALY R 466.0 ACUTE BRONCHITIS 06/13/2012 KT PROGRAM MEDICAL DIRECTOR, ALLEN S 461.9 ACUTE SINUSITIS UNSPECIFIED 06/13/2012 KT PROGRAM MEDICAL DIRECTOR, ALLEN S 466.0 ACUTE BRONCHITIS 06/13/2012 KT PROGRAM MEDICAL DIRECTOR, ALLEN S 461.9 ACUTE SINUSITIS UNSPECIFIED 06/13/2012 KT PROGRAM MEDICAL DIRECTOR, ALLEN S 466.0 ACUTE BRONCHITIS 06/13/2012 KT PROGRAM MEDICAL DIRECTOR, ALLEN S 461.9 ACUTE SINUSITIS UNSPECIFIED 06/13/2012 KT PROGRAM MEDICAL DIRECTOR, ALLEN S 466.0 ACUTE BRONCHITIS 06/13/2012 KT PROGRAM MEDICAL DIRECTOR, ALLEN S 461.9 ACUTE SINUSITIS UNSPECIFIED 06/13/2012 KT PROGRAM MEDICAL DIRECTOR, ALLEN S 466.0 ACUTE BRONCHITIS 06/13/2012 KT PROGRAM MEDICAL DIRECTOR, ALLEN S 461.9 ACUTE SINUSITIS UNSPECIFIED 06/13/2012 KT PROGRAM MEDICAL DIRECTOR, ALLEN S 466.0 ACUTE BRONCHITIS 06/13/2012 KT PROGRAM MEDICAL DIRECTOR, ALLEN S 461.9 ACUTE SINUSITIS UNSPECIFIED 06/13/2012 KT PROGRAM MEDICAL DIRECTOR, ALLEN S 466.0 ACUTE BRONCHITIS 06/13/2012 KT PROGRAM MEDICAL DIRECTOR, ALLEN S 461.9 ACUTE SINUSITIS UNSPECIFIED 06/13/2012 KT PROGRAM MEDICAL DIRECTOR, ALLEN S 466.0 ACUTE BRONCHITIS 06/13/2012 KT PROGRAM MEDICAL DIRECTOR, ALLEN S 461.9 ACUTE SINUSITIS UNSPECIFIED 06/13/2012 KT PROGRAM MEDICAL DIRECTOR, ALLEN S 466.0 ACUTE BRONCHITIS 06/13/2012 KT PROGRAM MEDICAL DIRECTOR, ALLEN S 461.9 ACUTE SINUSITIS UNSPECIFIED 06/13/2012 KT PROGRAM MEDICAL DIRECTOR, ALLEN S 466.0 ACUTE BRONCHITIS 09/03/2012 EDU WILLOUGHBY DO 786.07 WHEEZING 09/03/2012 EDU WILLOUGHBY DO 786.2 COUGH 09/03/2012 MURIEL POST DO 786.07 WHEEZING 09/03/2012 MURIEL POST DO 786.2 COUGH 09/03/2012 786.07 WHEEZING 09/03/2012 786.2 COUGH 09/03/2012 786.07 WHEEZING 09/03/2012 786.2 COUGH 09/03/2012 786.07 WHEEZING 09/03/2012 786.2 COUGH 09/03/2012 786.07 WHEEZING 09/03/2012 786.2 COUGH 09/03/2012 786.07 WHEEZING 09/03/2012 786.2 COUGH 09/03/2012 KT PROGRAM MEDICAL DIRECTOR, ALLEN S 786.07 WHEEZING 09/03/2012 KT PROGRAM MEDICAL DIRECTOR, ALLEN S 786.2 COUGH 09/03/2012 WILLOUGHBY DO, EDU K 786.07 WHEEZING 09/03/2012 WILLOUGHBY DO, EDU K 786.2 COUGH 09/03/2012 AMRIT PROGRAM MEDICAL DIRECTOR, MAYRA A 786.07 WHEEZING 09/03/2012 AMRIT PROGRAM MEDICAL DIRECTOR, MAYRA A 786.2 COUGH 09/03/2012 [place] PROGRAM MEDICAL DIRECTOR, JORDAN JOYNER 786.07 WHEEZING 09/03/2012 [place] PROGRAM MEDICAL DIRECTOR, JORDAN JOYNER 786.2 COUGH 09/03/2012 KT PROGRAM MEDICAL DIRECTOR, ALLEN S 786.07 WHEEZING 09/03/2012 KT PROGRAM MEDICAL DIRECTOR, ALLEN S 786.2 COUGH 09/03/2012 JOCELY[place] PROGRAM MEDICAL DIRECTOR, ALY R 786.07 WHEEZING 09/03/2012 JOCELYN PROGRAM MEDICAL DIRECTOR, ALY R 786.2 COUGH 09/03/2012 KT PROGRAM MEDICAL DIRECTOR, ALLEN S 786.07 WHEEZING 09/03/2012 KT PROGRAM MEDICAL DIRECTOR, ALLEN S 786.2 COUGH 09/03/2012 KT PROGRAM MEDICAL DIRECTOR, ALLEN S 786.07 WHEEZING 09/03/2012 KT PROGRAM MEDICAL DIRECTOR, ALLEN S 786.2 COUGH 09/03/2012 KT PROGRAM MEDICAL DIRECTOR, ALLEN S 786.07 WHEEZING 09/03/2012 KT PROGRAM MEDICAL DIRECTOR, ALLEN S 786.2 COUGH 09/03/2012 KT PROGRAM MEDICAL DIRECTOR, ALLEN S 786.07 WHEEZING 09/03/2012 KT PROGRAM MEDICAL DIRECTOR, ALLEN S 786.2 COUGH 09/03/2012 KT PROGRAM MEDICAL DIRECTOR, ALLEN S 786.07 WHEEZING 09/03/2012 KT PROGRAM MEDICAL DIRECTOR, ALLEN S 786.2 COUGH 09/03/2012 KT PROGRAM MEDICAL DIRECTOR, ALLEN S 786.07 WHEEZING 09/03/2012 KT PROGRAM MEDICAL DIRECTOR, ALLEN S 786.2 COUGH 09/03/2012 KT PROGRAM MEDICAL DIRECTOR, ALLEN S 786.07 WHEEZING 09/03/2012 KT PROGRAM MEDICAL DIRECTOR, ALLEN S 786.2 COUGH 09/03/2012 KT PROGRAM MEDICAL DIRECTOR, ALLEN S 786.07 WHEEZING 09/03/2012 KT PROGRAM MEDICAL DIRECTOR, ALLEN S 786.2 COUGH 09/03/2012 KT PROGRAM MEDICAL DIRECTOR, ALLEN S 786.07 WHEEZING 09/03/2012 KT PROGRAM MEDICAL DIRECTOR, ALLEN S 786.2 COUGH 09/24/2012 MURIEL POST DO F 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 09/24/2012 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 09/24/2012 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 09/24/2012 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 09/24/2012 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 09/24/2012 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 09/24/2012 KT PROGRAM MEDICAL DIRECTOR, ALLEN S 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 09/24/2012 [place] EDU RIVERA 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 09/24/2012 AMRIT PROGRAM MEDICAL DIRECTOR, MAYRA A 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 09/24/2012 [place] PROGRAM MEDICAL DIRECTOR, JORDAN JOYNER 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 09/24/2012 KT PROGRAM MEDICAL DIRECTOR, ALLEN S 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 09/24/2012 JOCELYN PROGRAM MEDICAL DIRECTOR, ALY R 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 [id number] 02/18/2013 13:18:00 Document Registration [id number] 02/04/2013 17:25:00 Document Registration [id number] 12/26/2012 09:34:00 Document Registration
[2019-01-18 17:03] VITALS: BP 215/115
== END 2019-01-18 17:10 | disposition home or self-care (01) ==
LOC: EDUNIT# 16:25 → ER 16:27
DX: S20.361A Insect bite (nonvenomous) of right front wall of thorax, initial encounter (principal); J45.909 Unspecified asthma, uncomplicated; K21.9 Gastro-esophageal reflux disease without esophagitis; F41.9 Anxiety disorder, unspecified; F32.9 Major depressive disorder, single episode, unspecified; Z91.040 Latex allergy status; Z88.2 Allergy status to sulfonamides; Z88.8 Allergy status to other drugs, medicaments and biological substances; Z79.51 Long term (current) use of inhaled steroids; Z90.710 Acquired absence of both cervix and uterus; W57.XXXA Bitten or stung by nonvenomous insect and other nonvenomous arthropods, initial encounter
CPT/HCPCS: 96372; 99284

== ENCOUNTER → 2019-11-17 | Outpatient (CLI) | payer OTHER ==
[~2019-11-17] MED LIST changes: +CEPH-507 PO
--- NOTE | 2019-11-17 10:06 | Diagnostic Imaging Report ---
CLINICAL INDICATION: Patient with drainage causing wheezing/coughing. Patient has been on and off antibiotics since July. Patient is not getting better. EXAM: Axial CT scan of the maxillofacial structures without IV contrast . Coronal and sagittal reformations were performed. Auto Exposure Controls were utilized during the CT exam to meet ALARA standards for radiation dose reduction. COMPARISON: None. FINDINGS: PARANASAL SINUSES: FRONTAL: There is mild mucosal thickening, predominantly on the left, with occlusion of the left frontal recess region. ETHMOID: There is mild to moderate mucosal thickening. MAXILLARY: There are large amounts of mucosal thickening and secretions in the left maxillary sinus. There is a moderate amount of mucosal thickening in the right maxillary sinus. The left ostiomeatal unit region is obstructed. The right infundibular region is partially obstructed by mucosal thickening. SPHENOID: There is mild to moderate mucosal thickening and secretions. OTHER PARANASAL SINUS FINDINGS: There is mild alma bullosa of the vertical lamella of the bilateral middle nasal turbinates. NASAL SEPTUM: Minimally tortuous nasal septum is seen. VISUALIZED TEMPORAL BONE STRUCTURES: Unremarkable. BONY STRUCTURES: Unremarkable. EXTRACRANIAL SOFT TISSUE/ ORBITS: Unremarkable. IMPRESSION: 1. There is diffuse paranasal sinusitis with left maxillary sinus is affected most. 2. Minimally tortuous nasal septum. Dictated by: Dictated on workstation # [id number]
== END ==
LOC: RAD 09:20
PROVIDERS: ATTEND Nurse Practitioner Community Health
DX: J45.31 Mild persistent asthma with (acute) exacerbation (principal); J32.9 Chronic sinusitis, unspecified
CPT/HCPCS: 70486

== ENCOUNTER → 2020-01-07 | Outpatient (CLI) | payer OTHER ==
[~2020-01-07] MED LIST changes: +CATHETER FLUSH 10 ML SYR IV PRN; +HOLD METFORMIN - RECEIVED CONTRAST 20 ML VIAL IV SCH; +IOHEXOL 350 MG/ML 100 ML (OMNIPAQUE 350) VIAL IV ONE; +NS 100 ML (IVPB) BAG IV ONE
[2020-01-07 15:01] LABS: BUN/CREATININE RATIO 15; CREATININE SERUM 0.82 MG/DL (0.60-1.30); GFR ESTIMATED > 60
[2020-01-07 15:14] LABS: ABG BASE EXCESS 2.2 MMOL/L (-2.5-2.5); ABG OXYGEN SATURATION 95 % (94-100); ABG PCO2 41 MMHG (35-45); ABG PH 7.42 (7.37-7.43); ABG PO2 77 MMHG (79-93); ABG TCO2 27.7 MMOL/L (21.0-31.0)
[2020-01-07 15:15] LABS: ALLENS TEST YES-POS; INSPIRED O2 RA; PATIENT TEMP 36.5; VENTILATOR NO
--- NOTE | 2020-01-07 17:18 | Diagnostic Imaging Report ---
PROCEDURE: CT chest with contrast only. TECHNIQUE: Multiple contiguous axial images were obtained through the chest after administration of intravenous contrast. Auto Exposure Controls were utilized during the CT exam to meet ALARA standards for radiation dose reduction. INDICATION: Dyspnea. Recent bronchitis/pneumonia. COMPARISON: Chest x-ray from 02/15/2010. FINDINGS: The heart is normal in size. There is no pericardial effusion. No mediastinal adenopathy is seen. There are multiple axillary lymph nodes which do not appear enlarged. The aorta is normal in caliber. There is mild atherosclerosis. There are calcified lymph nodes in the left hilum, consistent with old granulomatous disease. There is no pleural effusion or pneumothorax. Calcified granulomas are seen in the left lung. No focal consolidation is seen. No masses or focal consolidation are seen. No central endobronchial lesions are seen. No acute osseous abnormality is seen. Imaged portions of the upper abdomen demonstrate no acute abnormality. IMPRESSION: 1. No acute pulmonary abnormality is seen. Dictated by: Dictated on workstation # [id number]
== END ==
LOC: RAD 14:20
PROVIDERS: ATTEND Nurse Practitioner Family
DX: G47.8 Other sleep disorders (principal); J20.9 Acute bronchitis, unspecified; J45.909 Unspecified asthma, uncomplicated
CPT/HCPCS: 36415; 36600; 71260; 82565; 82805; 84520; 94761

== ENCOUNTER → 2020-02-10 | Outpatient (CLI) | payer OTHER ==
[~2020-02-10] MED LIST changes: -CATHETER FLUSH 10 ML SYR IV PRN; -HOLD METFORMIN - RECEIVED CONTRAST 20 ML VIAL IV SCH; -IOHEXOL 350 MG/ML 100 ML (OMNIPAQUE 350) VIAL IV ONE; -NS 100 ML (IVPB) BAG IV ONE; +RT-ALBUTEROL SULF 2.5 MG/3 ML PRE-MIX VIAL INH ONE
== END ==
LOC: RT 12:45
PROVIDERS: ATTEND Nurse Practitioner Family
DX: J45.909 Unspecified asthma, uncomplicated (principal); J20.9 Acute bronchitis, unspecified; G47.8 Other sleep disorders
CPT/HCPCS: 94060; 94726; 94729

== ENCOUNTER 2020-09-15 20:04 | Emergency (ER) | payer OTHER ==
[~2020-09-15] VITALS: Ht 165.1 cm; Wt 108.9 kg
[~2020-09-15 20:04] MED LIST changes: -RT-ALBUTEROL SULF 2.5 MG/3 ML PRE-MIX VIAL INH ONE
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
[2020-09-15] MEDS ORDERED: RX-CYCLOBENZAPRINE 10 MG (FLEXERIL) TAB PPK#3 PO STA (21:37)
[2020-09-15] MEDS ORDERED: RX-NAPROXEN (NAPROSYN) 250 MG TAB PPK#4 PO STA (21:37)
[2020-09-15] MEDS ORDERED: CYCL10TA9 PO (21:37)
[2020-09-15] MEDS ORDERED: NAPR500T8 PO (21:37)
[2020-09-15 21:44] VITALS: BP 131/70
== END 2020-09-15 21:44 | disposition home or self-care (01) ==
LOC: EDUNIT# 20:04 → ER 20:07
DX: S16.1XXA Strain of muscle, fascia and tendon at neck level, initial encounter (principal); S39.012A Strain of muscle, fascia and tendon of lower back, initial encounter; M25.561 Pain in right knee; E66.9 Obesity, unspecified; F90.9 Attention-deficit hyperactivity disorder, unspecified type; Z68.36 Body mass index [BMI] 36.0-36.9, adult; Z91.040 Latex allergy status; Z88.2 Allergy status to sulfonamides; Z88.8 Allergy status to other drugs, medicaments and biological substances; V69.9XXA Occupant (driver) (passenger) of heavy transport vehicle injured in unspecified traffic accident, initial encounter
CPT/HCPCS: 70450; 72125; 72128; 72131; 73562

== ENCOUNTER → 2020-11-21 | Outpatient (CLI) | payer SELFPAY ==
[~2020-11-21] MED LIST changes: +CYCL10TA9 PO; +NAPR500T8 PO
[2020-11-21 20:26] LABS: BASOPHILS # (AUTO) 0.1 10^3/uL (0.0-0.1); BASOPHILS % (AUTO) 1 % (0-10); EOSINOPHILS # (AUTO) 0.2 10^3/uL (0.0-0.3); EOSINOPHILS % (AUTO) 2 % (0-10); HEMATOCRIT 43 % (35-52); HEMOGLOBIN 14.3 g/dL (11.5-16.0); LYMPHOCYTES # (AUTO) 2.7 10^3/uL (1.0-4.0); LYMPHOCYTES % (AUTO) 34 % (12-44); MEAN CORPUSCULAR HEMOGLOBIN 29 pg (25-34); MEAN CORPUSCULAR HGB CONC 34 g/dL (32-36); MEAN CORPUSCULAR VOLUME 86 fL (80-99); MEAN PLATELET VOLUME 9.7 fL (9.0-12.2); MONOCYTES # (AUTO) 0.7 10^3/uL (0.0-1.0); MONOCYTES % (AUTO) 9 % (0-12); NEUTROPHILS # (AUTO) 4.3 10^3/uL (1.8-7.8); NEUTROPHILS % (AUTO) 54 % (42-75); PLATELET COUNT 260 10^3/uL (130-400); WHITE BLOOD COUNT 7.9 10^3/uL (4.3-11.0)
== END ==
LOC: LAB 19:58
PROVIDERS: ATTEND Nurse Practitioner Family
DX: J30.9 Allergic rhinitis, unspecified (principal)
CPT/HCPCS: 36415; 82785; 85025; 86003

== ENCOUNTER 2021-06-27 11:57 | Outpatient (RCR) | payer OTHER ==
[2021-04-12] MEDS: OMALIZUMAB 150 MG (XOLAIR) VIAL FREE STOCK SQ SCH (13:21)
[2021-04-12 13:40] VITALS: BP 134/80
[2021-04-26 12:45] VITALS: BP 133/77
[2021-04-26] MEDS: OMALIZUMAB 150 MG (XOLAIR) VIAL FREE STOCK SQ SCH (13:00)
[2021-05-11] MEDS: OMALIZUMAB 150 MG (XOLAIR) VIAL FREE STOCK SQ SCH (12:42)
[2021-05-11 12:45] VITALS: BP 142/98
[2021-05-29 12:10] VITALS: BP 144/87
[2021-05-29] MEDS: OMALIZUMAB 150 MG (XOLAIR) VIAL FREE STOCK SQ SCH (12:33)
[~2021-06-27] VITALS: Ht 165 cm; Wt 100.0 kg
[~2021-06-27 11:57] MED LIST changes: +OMALIZUMAB SUB-Q 150 MG (XOLAIR) VIAL SQ SCH
[2021-06-27 12:00] VITALS: BP 137/76
[2021-06-27] MEDS: OMALIZUMAB 150 MG (XOLAIR) VIAL FREE STOCK SQ SCH (12:51)
== END 2021-07-11 | disposition home or self-care (01) ==
LOC: SDC 11:57
PROVIDERS: ATTEND Nurse Practitioner Family
DX: J45.909 Unspecified asthma, uncomplicated (principal)
CPT/HCPCS: 96372

== ENCOUNTER 2021-07-25 12:27 | Outpatient (RCR) | payer OTHER ==
[~2021-07-25 12:27] MED LIST changes: +CYCL10TA25 PO; -CYCL10TA9 PO; -OMALIZUMAB SUB-Q 150 MG (XOLAIR) VIAL SQ SCH
[2021-07-25] MEDS ORDERED: OMALIZUMAB 150 MG (XOLAIR) VIAL FREE STOCK SQ SCH (13:00)
[2021-07-25 13:05] VITALS: BP 141/73
== END 2021-08-24 | disposition home or self-care (01) ==
LOC: SDC 12:27
PROVIDERS: ATTEND Nurse Practitioner Family
DX: J45.909 Unspecified asthma, uncomplicated (principal)
CPT/HCPCS: 96372

== ENCOUNTER 2021-09-16 21:36 | Emergency (ER) | payer OTHER ==
[~2021-09-16] VITALS: Ht 165 cm; Wt 113.4 kg
[2021-09-16 21:40] VITALS: BP 154/92
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
== END 2021-09-16 22:10 | disposition home or self-care (01) ==
LOC: EDUNIT# 21:36 → ER 21:37
DX: S09.90XA Unspecified injury of head, initial encounter (principal); U07.1 COVID-19; E66.9 Obesity, unspecified; I10 Essential (primary) hypertension; K21.9 Gastro-esophageal reflux disease without esophagitis; Z91.040 Latex allergy status; Z68.41 Body mass index [BMI] 40.0-44.9, adult; Z79.899 Other long term (current) drug therapy; W18.30XA Fall on same level, unspecified, initial encounter
CPT/HCPCS: 99281